=== PATIENT | male | born 1935 | race American Indian/Alaskan Native ===

== ENCOUNTER 2017-03-03 15:03 | Inpatient (IN) | payer MEDICARE ==
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
[2017-03-03 16:46] LABS: Basophils % (Auto) 0.2 % (0.0-1.8); Eosinophils % (Auto) 0.4 % (0.0-4.3); Hematocrit 49.7 % (35.5-45.6); Mean Corpuscular HGB Conc 34 % (32-34); Mean Corpuscular Hemoglobin 34 pg (28-32); Mean Corpuscular Volume 100 fl (84-94); Platelet Count 186 K/mm3 (140-440); Red Blood Count 4.96 M/mm3 (3.65-5.03); Red Cell Distribution Width 14.4 % (13.2-15.2); White Blood Count 5.1 K/mm3 (4.5-11.0)
[2017-03-03 17:04] LABS: Alanine Aminotransferase 12 units/L (7-56); Albumin 4.3 g/dL (3.9-5); Albumin/Globulin Ratio 1.2 %; Alkaline Phosphatase 72 units/L (35-129); Anion Gap 23 mmol/L; BUN/Creatinine Ratio 14; Blood Urea Nitrogen 11 mg/dL (9-20); Calcium 9.5 mg/dL (8.4-10.2); Carbon Dioxide 20 mmol/L (22-30); Chloride 99.3 mmol/L (98-107); Glucose 101 mg/dL (75-100); Lipase 16 units/L (13-60); Potassium 4.1 mmol/L (3.6-5.0); Sodium 138 mmol/L (137-145); Total Protein 7.8 g/dL (6.3-8.2)
[2017-03-03 17:10] LABS: Bilirubin,Direct < 0.2 mg/dL (0-0.2); Bilirubin,Indirect 0.8 mg/dL
[2017-03-03] MEDS ORDERED: MORPHINE IV ONE (19:46)
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
--- NOTE | 2017-03-03 19:55 | History and Physical Report ---
History of Present Illness Chief complaint: My stomach has been hurting History of present illness: 81 YO Male with HTN, Obesity, A Fib, CHF, presents to ED for evaluation. Pt states that he has experienced abdominal pain for the past 1 day with worsening symptoms over the past 6 hours. Pt states that pain in 5/10, diffuse, and associated with watery diarrhea. Pt states that the he has experienced 8 loose, largge volume, watery bowel movements. Pt denies fever, chills, CP, Palpitations, shortness of breath, prolonged travel/immobility, leg pain/calf pain, individual/family history of DVT/PE. Pt seen and evaluated in ED and found to have bowel obstruction. on CT Abdomen. Past History Past Medical History: atrial fib, heart failure, hypertension Past Surgical History: bowel surgery Social history: . denies: smoking, alcohol abuse, prescription drug abuse Family history: hypertension Review of Systems Constitutional: no weight loss, no weight gain, no fever, no chills, no sweats Ears, nose, mouth and throat: no ear pain, no ear discharge, no tinnitis, no decreased hearing, no nose pain, no nasal congestion, no nasal discharge, no sinus pressure Cardiovascular: no chest pain, no orthopnea, no palpitations, no rapid/ irregular heart beat, no edema, no syncope, no lightheadedness, no shortness of breath Respiratory: no cough, no cough with sputum, no excessive sputum, no hemoptysis , no shortness of breath Gastrointestinal: abdominal pain, nausea, vomiting, diarrhea, no BRBPR, no melena, no hematochezia, no excessive gas, no jaundice, no dyspepsia/bloating Genitourinary Male: no dysuria, no hematuria, no flank pain, no discharge, no urinary frequency, no urinary hesitancy Rectal: no pain, no incontinence, no bleeding Musculoskeletal: no neck stiffness, no neck pain, no shooting arm pain, no arm numbness/tingling, no low back pain, no shooting leg pain, no leg numbness/ tingling Integumentary: no rash, no pruritis, no redness, no sores, no wounds Neurological: no transient paralysis, no paralysis, no weakness, no parathesias , no numbness, no tingling, no seizures Psychiatric: no anxiety, no memory loss, no change in sleep habits, no sleep disturbances, no insomnia, no hypersomnia, no change in appetite, no change in libido Endocrine: no cold intolerance, no heat intolerance, no polyphagia, no excessive thirst, no polydipsia, no polyuria Hematologic/Lymphatic: no easy bruising, no easy bleeding Allergic/Immunologic: no urticaria, no allergic rhinitis, no wheezing Exam - Constitutional Vitals: Temp Pulse Resp BP Pulse Ox 98.1 F 93 H 19 173/115 100 03/03/17 17:45 03/03/17 17:45 03/03/17 17:45 03/03/17 17:45 03/03/17 17:45 General appearance: Present: mild distress, obese - EENT Eyes: Present: PERRL ENT: hearing intact, clear oral mucosa - Neck Neck: Present: supple, normal ROM - Respiratory Respiratory effort: normal Respiratory: bilateral: CTA - Cardiovascular Rhythm: irregularly irregular Heart Sounds: Present: S1 & S2. Absent: rub, click - Extremities Extremities: pulses symmetrical, No edema Peripheral Pulses: within normal limits - Abdominal General gastrointestinal: Present: soft, tender, distended, normal bowel sounds Localized gastrointestinal: tender: diffuse, guarding: diffuse Male genitourinary: Present: normal - Integumentary Integumentary: Present: clear, warm, dry - Musculoskeletal Musculoskeletal: gait normal, strength equal bilaterally - Psychiatric Psychiatric: appropriate mood/affect, intact judgment & insight - Neurologic Neurologic: CNII-XII intact, moves all extremities Results - Labs CBC & Chem 7: 03/03/17 16:11 03/03/17 16:11 Labs: Abnormal lab results 03/03/17 03/03/17 03/03/17 Range/Units 16:11 16:11 16:11 Hgb 17.0 H (11.8-15.2) gm/dl Hct 49.7 H (35.5-45.6) % MCV 100 H (84-94) fl MCH 34 H (28-32) pg Lymph # 0.8 L (1.2-5.4) K/mm3 Seg Neutrophils % 80.6 H (40.0-70.0) % Carbon Dioxide 20 L (22-30) mmol/L Glucose 101 H (75-100) mg/dL Lactic Acid 2.20 H* (0.7-2.0) mmol/L Assessment and Plan - Patient Problems (1) Bowel obstruction Current Visit: Yes Status: Acute Qualifiers: Intestinal obstruction type: I Intestinal obstruction extent: I Plan to address problem: Surgery consulted, NPO, bowel rest, IVF resuscitation, serial lactic acid level , serial abdominal exam, NGT to LWS, Abdominal x ray in AM. (2) Atrial fibrillation Current Visit: Yes Status: Acute Qualifiers: Atrial fibrillation type: A Plan to address problem: Resume current therapy, (3) CHF (congestive heart failure) Current Visit: Yes Status: Chronic Qualifiers: Congestive heart failure type: systolic Congestive heart failure chronicity : C Plan to address problem: Resume home medication, fluid restriction, monitor uop q shift, (4) HTN (hypertension) Current Visit: Yes Status: Acute Qualifiers: Hypertension type: H Plan to address problem: monitor BP q shift, (5) Peritonitis Current Visit: Yes Status: Acute Plan to address problem: IVF, IV abx, supportive care, serial lactic acid level, (6) DVT prophylaxis Current Visit: Yes Status: Acute
[2017-03-03] MEDS ORDERED: MILK OF MAGNESIA PO PRN (20:07)
[2017-03-03] MEDS ORDERED: TYLENOL PO PRN (20:07)
[2017-03-03] MEDS ORDERED: PROVENTIL IH PRN (20:07)
[2017-03-03] MEDS ORDERED: DULCOLAX PR PRN (20:07)
[2017-03-03] MEDS ORDERED: ZOFRAN IV PRN (20:07)
--- NOTE | 2017-03-03 23:16 | Progress Note ---
Assessment and Plan Full consult dictated History of Present Illness Chief complaint: Full consult dictated History of present illness: 81 YO Male with HTN, Obesity, A Fib, CHF, presents to ED for evaluation. Pt states that he has experienced abdominal pain for the past 1 day with worsening symptoms over the past 6 hours. Pt states that pain in 5/10, diffuse, and associated with watery diarrhea. Pt states that the he has experienced 8 loose, largge volume, watery bowel movements. Pt denies fever, chills, CP, Palpitations, shortness of breath, prolonged travel/immobility, leg pain/calf pain, individual/family history of DVT/PE. Pt seen and evaluated in ED and found to have bowel obstruction. on CT Abdomen. on coumadin Past History Past Medical History: atrial fib, heart failure, hypertension Past Surgical History: bowel surgery Social history: 1/2 ppd smoker x 30 yrs. quit in ' Family history: hypertension, DM Abd - 2+ distended, non tender. midline scar Abd series - SBO imp sbo rec keep npo ng suction IVF hydration f/u abd series in am will follow thanks Selected Entries 03/03/17 21:45 O2 Sat by Pulse 93 Oximetry Blood Pressure 160/97 Laboratory Tests 03/03/17 03/03/17 16:11 16:11 WBC 5.1 Hgb 17.0 H Hct 49.7 H Sodium 138 Potassium 4.1 Chloride 99.3 BUN 11 Creatinine 0.8 Total Bilirubin 1.00 AST 20 ALT 12 Alkaline Phosphatase 72 Lipase 16 Objective Vital Signs - 12hr 03/03/17 03/03/17 03/03/17 20:15 20:31 20:43 Respiratory 12 Rate Blood Pressure 186/114 186/95 O2 Sat by Pulse 97 94 Oximetry 03/03/17 03/03/17 03/03/17 20:45 21:01 21:15 Respiratory Rate Blood Pressure 186/95 163/98 163/98 O2 Sat by Pulse 95 92 97 Oximetry 03/03/17 03/03/17 03/03/17 21:30 21:45 22:06 Respiratory Rate Blood Pressure 160/97 160/97 O2 Sat by Pulse 93 96 Oximetry 03/03/17 22:33 Respiratory Rate Blood Pressure O2 Sat by Pulse 98 Oximetry - Labs 03/03/17 16:11 03/03/17 16:11
[2017-03-04] MEDS: PEPCID IV SCH ×3 (00:30→21:30)
[2017-03-04] MEDS: FLAGYL 500 MG/100 ML 500 MG/100 ML BAG IV SCH ×4 (00:36→21:32)
[2017-03-04] MEDS: NACL 0.45% 1000 ML 1,000 ML IV SCH ×2 (00:52→21:28)
[2017-03-04 05:07] LABS: Basophils % (Auto) 0.4 % (0.0-1.8); Eosinophils % (Auto) 0.3 % (0.0-4.3); Hemoglobin 16.2 gm/dl (11.8-15.2); Mean Corpuscular HGB Conc 35 % (32-34); Mean Corpuscular Hemoglobin 34 pg (28-32); Mean Corpuscular Volume 100 fl (84-94); Platelet Count 192 K/mm3 (140-440); Red Blood Count 4.72 M/mm3 (3.65-5.03); Red Cell Distribution Width 14.3 % (13.2-15.2); White Blood Count 5.7 K/mm3 (4.5-11.0)
[2017-03-04 05:16] LABS: INR 2.79 (0.87-1.13); Partial Thromboplastin Time 47.9 Sec. (24.2-36.6)
[2017-03-04 05:18] LABS: Alanine Aminotransferase 11 units/L (7-56); Albumin 3.9 g/dL (3.9-5); Alkaline Phosphatase 66 units/L (35-129); Anion Gap 21 mmol/L; BUN/Creatinine Ratio 16; Blood Urea Nitrogen 13 mg/dL (9-20); Calcium 9.5 mg/dL (8.4-10.2); Carbon Dioxide 22 mmol/L (22-30); Chloride 98.8 mmol/L (98-107); Glucose 100 mg/dL (75-100); Potassium 3.9 mmol/L (3.6-5.0); Sodium 138 mmol/L (137-145); Total Protein 7.7 g/dL (6.3-8.2)
--- NOTE | 2017-03-04 07:56 | XRay Report ---
ABDOMEN, 2 views: History: Abdominal pain and distention. No comparison. There are multiple dilated loops of small bowel with a large air-fluid levels throughout the abdomen. Very little gas in the colon is detected. There is no evidence for free air or pathologic calcifications. IMPRESSION: Small bowel obstruction. Further evaluation with CT with IV and oral contrast is recommended.
--- NOTE | 2017-03-04 08:41 | XRay Report ---
ABDOMINAL SERIES: History: Follow up small bowel obstruction. A nasogastric tube has been inserted since yesterday's exam which appears to be coiled in the distal esophagus. Please correlate with the image and consider replacement of the nasogastric tube. Multiple dilated loops of small bowel and stomach are again noted in the abdomen or large air-fluid levels. No free air. IMPRESSION: Essentially no change since yesterday's exam. The nasogastric tube appears to be coiled upon itself in the distal esophagus. Please correlate with the image and consider replacement.
[2017-03-04] MEDS ORDERED: REGLAN IV PRN (10:30)
--- NOTE | 2017-03-04 11:04 | Progress Note ---
Assessment and Plan Pt status quo. Abd exam - unchanged Abd series - ng noted to be curled in distal esophagus reposition ng and confirm with KUB if necessary need to correct elevated PT AZUL in case expl lap required Vasc surg eval for possible dissecting aneurysm in proximal iliac artery repeat abd series in am awaiting cardiology eval Selected Entries 03/04/17 03/04/17 04:00 09:25 Temperature 98.3 F Respiratory 20 Rate Blood Pressure 159/108 [Left] Laboratory Tests 03/04/17 03/04/17 03/04/17 04:22 04:22 04:22 WBC 5.7 Hgb 16.2 H Hct 47.0 H PT 30.7 H INR 2.79 H APTT 47.9 H Sodium 138 Potassium 3.9 Chloride 98.8 Carbon Dioxide 22 BUN 13 Creatinine 0.8 Objective Vital Signs - 12hr 03/04/17 03/04/17 03/04/17 04:00 07:26 09:25 Temperature 98.3 F Pulse Rate 118 H Respiratory 20 20 Rate Blood Pressure 174/112 159/108 [Left] O2 Sat by Pulse 98 95 96 Oximetry - Labs 03/04/17 04:22 03/04/17 04:22 Diabetes panel 03/04/17 Range/Units 04:22 Sodium 138 (137-145) mmol/L Potassium 3.9 (3.6-5.0) mmol/L Chloride 98.8 (98-107) mmol/L Carbon Dioxide 22 (22-30) mmol/L BUN 13 (9-20) mg/dL Creatinine 0.8 (0.8-1.5) mg/dL Glucose 100 (75-100) mg/dL Calcium 9.5 (8.4-10.2) mg/dL AST 19 (5-40) units/L ALT 11 (7-56) units/L Alkaline Phosphatase 66 (35-129) units/L Total Protein 7.7 (6.3-8.2) g/dL Albumin 3.9 (3.9-5) g/dL Calcium panel 03/04/17 Range/Units 04:22 Calcium 9.5 (8.4-10.2) mg/dL Albumin 3.9 (3.9-5) g/dL Pituitary panel 03/04/17 Range/Units 04:22 Sodium 138 (137-145) mmol/L Potassium 3.9 (3.6-5.0) mmol/L Chloride 98.8 (98-107) mmol/L Carbon Dioxide 22 (22-30) mmol/L BUN 13 (9-20) mg/dL Creatinine 0.8 (0.8-1.5) mg/dL Glucose 100 (75-100) mg/dL Calcium 9.5 (8.4-10.2) mg/dL Adrenal panel 03/04/17 Range/Units 04:22 Sodium 138 (137-145) mmol/L Potassium 3.9 (3.6-5.0) mmol/L Chloride 98.8 (98-107) mmol/L Carbon Dioxide 22 (22-30) mmol/L BUN 13 (9-20) mg/dL Creatinine 0.8 (0.8-1.5) mg/dL Glucose 100 (75-100) mg/dL Calcium 9.5 (8.4-10.2) mg/dL Total Bilirubin 1.00 (0.1-1.2) mg/dL AST 19 (5-40) units/L ALT 11 (7-56) units/L Alkaline Phosphatase 66 (35-129) units/L Total Protein 7.7 (6.3-8.2) g/dL Albumin 3.9 (3.9-5) g/dL
--- NOTE | 2017-03-04 11:19 | Progress Note ---
Assessment and Plan Assessment and plan: Patient is 81-year-old man with history of A. fib on warfarin, hypertension, CHF , tobacco dependency, dyslipidemia and coronary artery disease who presented to [facility] (first visit here-main doctors are at [facility]) with nausea, vomiting and abdominal pains. 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 -Small bowel obstruction with peritonitis: Discussed with general surgeon Dr. Gong, NG tube to be repositioned, careful with suction due to therapeutic INR , nothing by mouth, IV pain control, empiric IV antibiotics -Malignant hypertension: prn IV labetalol -Atrial fibrillation/aflutter with RVR on warfarin with therapeutic INR: Will need to be reversed for possible surgery per Dr. Gong who recommends 2 units of FFP and vitamin K, we'll consult cardiology to manage, careful with history of heart failure, possibly will need IV heparin, consulted [facility] because they also go to [facility]; therefore, they can review his [facility] records and they are on-call today. 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 CCT 34 minutes History Interval history: Patient was seen and examined. Follow-up on current diagnosis/abdominal pain nausea vomiting which is still present. Overnight uneventful. Patient denies any chest pain, shortness breath, or severe headaches. Imaging, nursing note, chart, labs and old chart reviewed. Discussed with patient. Daughter Alysia at bedside. Patient has NG tube Hospitalist Physical - Physical exam Narrative exam: GEN: Ill-appearing man, BMI 35.4, no respiratory distress awake alert oriented 3 HEENT: NCAT, EOMI, PERRL, OP Clear, NG tube in place NECK: supple, no adenopathy, no thyromegaly, no JVD CVS/HEART: Irregular regular NORMAL S1S2, NO JVD, pulses present bilaterally CHEST/LUNGS: Bibasilar crackles Symmetrical chest expansion, good air entry bilaterally GI/Abdomen: Distended, diffuse tenderness good bowel sounds,+ guarding, no rebound /Bladder: no suprapubic tenderness, no CVA or paraspinal tenderness EXT/Skin: no c/c/e, no obvious rash MSK: FROM x 4 Neuro: CN 2-12 grossly intact except facial asymmetry, no new focal deficits Psych: calm - Constitutional Vitals: Temp Pulse Resp BP Pulse Ox 98.3 F 118 H 20 159/108 96 03/04/17 04:00 03/04/17 04:00 03/04/17 09:25 03/04/17 09:25 03/04/17 09:25 General appearance: Present: obese Results - Labs CBC & Chem 7: 03/04/17 04:22 03/04/17 04:22 Labs: Laboratory Last Values WBC 5.7 K/mm3 (4.5-11.0) 03/04/17 04:22 RBC 4.72 M/mm3 (3.65-5.03) 03/04/17 04:22 Hgb 16.2 gm/dl (11.8-15.2) H 03/04/17 04:22 Hct 47.0 % (35.5-45.6) H 03/04/17 04:22 MCV 100 fl (84-94) H 03/04/17 04:22 MCH 34 pg (28-32) H 03/04/17 04:22 MCHC 35 % (32-34) H 03/04/17 04:22 RDW 14.3 % (13.2-15.2) 03/04/17 04:22 Plt Count 192 K/mm3 (140-440) 03/04/17 04:22 Lymph % (Auto) 15.8 % (13.4-35.0) 03/04/17 04:22 [place] % (Auto) 5.3 % (0.0-7.3) 03/04/17 04:22 Eos % (Auto) 0.3 % (0.0-4.3) 03/04/17 04:22 Baso % (Auto) 0.4 % (0.0-1.8) 03/04/17 04:22 Lymph # 0.9 K/mm3 (1.2-5.4) L 03/04/17 04:22 [place] # 0.3 K/mm3 (0.0-0.8) 03/04/17 04:22 Eos # 0.0 K/mm3 (0.0-0.4) 03/04/17 04:22 Baso # 0.0 K/mm3 (0.0-0.1) 03/04/17 04:22 Seg Neutrophils % 78.2 % (40.0-70.0) H 03/04/17 04:22 Seg Neutrophils # 4.5 K/mm3 (1.8-7.7) 03/04/17 04:22 PT 30.7 Sec. (12.2-14.9) H 03/04/17 04:22 INR 2.79 (0.87-1.13) H 03/04/17 04:22 APTT 47.9 Sec. (24.2-36.6) H 03/04/17 04:22 Sodium 138 mmol/L (137-145) 03/04/17 04:22 Potassium 3.9 mmol/L (3.6-5.0) 03/04/17 04:22 Chloride 98.8 mmol/L (98-107) 03/04/17 04:22 Carbon Dioxide 22 mmol/L (22-30) 03/04/17 04:22 Anion Gap 21 mmol/L 03/04/17 04:22 BUN 13 mg/dL (9-20) 03/04/17 04:22 Creatinine 0.8 mg/dL (0.8-1.5) 03/04/17 04:22 Estimated GFR > 60 ml/min 03/04/17 04:22 BUN/Creatinine Ratio 16 % 03/04/17 04:22 Glucose 100 mg/dL (75-100) 03/04/17 04:22 Lactic Acid 2.20 mmol/L (0.7-2.0) H* 03/03/17 16:11 Calcium 9.5 mg/dL (8.4-10.2) 03/04/17 04:22 Total Bilirubin 1.00 mg/dL (0.1-1.2) 03/04/17 04:22 Direct Bilirubin < 0.2 mg/dL (0-0.2) 03/03/17 16:11 Indirect Bilirubin 0.8 mg/dL 03/03/17 16:11 AST 19 units/L (5-40) 03/04/17 04:22 ALT 11 units/L (7-56) 03/04/17 04:22 Alkaline Phosphatase 66 units/L (35-129) 03/04/17 04:22 Total Protein 7.7 g/dL (6.3-8.2) 03/04/17 04:22 Albumin 3.9 g/dL (3.9-5) 03/04/17 04:22 Albumin/Globulin Ratio 1.0 % 03/04/17 04:22 Lipase 16 units/L (13-60) 03/03/17 16:11
[2017-03-04] MEDS ORDERED: COUMADIN NO DOSE TODAY PO ONE (11:21)
[2017-03-04] MEDS ORDERED: NACL 0.9% 500 ML 500 ML IV ONE (11:31)
--- NOTE | 2017-03-04 11:48 | Event Note ---
Date: 03/04/17 Recommend refer concerns about iliac and distal aorta aneurysm to vascular surgery, please re-consult us if any cardiac issues.
[2017-03-04] MEDS ORDERED: NACL P/F VIAL (10 ML) 10 ML ONE (12:19)
[2017-03-04] MEDS: LEVAQUIN 500MG/100ML 500 MG/100 ML BAG IV SCH (12:22)
[2017-03-04] MEDS: CHLORASEPTIC MM PRN (12:28)
[2017-03-04] MEDS ORDERED: VITAMIN K (ADULT ONLY) 5 MG in NACL 0.9% 50 ML IV ONE (12:30)
[2017-03-04] MEDS: NORMODYNE IV PRN ×2 (15:30→21:29)
--- NOTE | 2017-03-04 15:36 | Consultation ---
History of Present Illness - Reason for Consult Consult date: 03/04/17 right common iliac artery aneurysm - History of Present Illness This is a 81-year-old male who recently presented to the hospital with nausea/ vomiting/diarrhea for approximately 8 days. He had a CT scan of the abdomen as part of the abdominal pain evaluation. 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 Regarding vascular history, aside from cardiac issues, he denies any symptoms related to claudication or rest pain. He states he has never felt a pulsatile mass in the abdomen or pelvis. He does have an extensive cardiac history including CHF, A. fib, and coronary artery disease. 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 Past History Past Medical History: atrial fib, heart failure, hypertension Past Surgical History: bowel surgery Social history: . denies: smoking, alcohol abuse, prescription drug abuse Family history: hypertension Medications and Allergies Allergies Allergy/AdvReac Type Severity Reaction Status Date / Time No Known Drug Allergies Allergy Unknown Verified 03/03/17 20:43 Home Medications Medication Instructions Recorded Confirmed Last Taken Type AtorvaSTATin [Lipitor] 20 mg PO QDAY 03/03/17 03/03/17 03/02/17 History Digoxin [Digox] 125 mcg PO QDAY 03/03/17 03/03/17 03/02/17 History Diltiazem HCl [Cardizem LA] 360 mg PO QDAY 03/03/17 03/03/17 03/02/17 History Gabapentin [Neurontin] 300 mg PO QDAY 03/03/17 03/03/17 03/02/17 History Omeprazole [Omeprazole] 20 mg PO QDAY 03/03/17 03/03/17 03/02/17 History Torsemide [Demadex] 20 mg PO BID 03/03/17 03/03/17 03/02/17 History Valsartan [Diovan] 80 mg PO QDAY 03/03/17 03/03/17 03/02/17 History Warfarin Sodium [Coumadin] 5 mg PO QDAY 03/03/17 03/03/17 03/02/17 History Active Meds: Active Medications Albuterol (Proventil) 2.5 mg IH Q4HRT PRN PRN Reason: Shortness Of Breath Bisacodyl (Dulcolax) 10 mg [place] QDAY PRN PRN Reason: Constipation unrelieved by MOM Famotidine (Pepcid) 20 mg IV BID [facility] Last Admin: 03/04/17 12:22 Dose: 20 mg Sodium Chloride (Nacl 0.45% 1000 Ml) 1,000 mls @ 75 mls/hr IV DIRECT MARIO Last Admin: 03/04/17 00:52 Dose: 75 mls/hr Metronidazole (Flagyl 500 Mg/100 Ml) 500 mg in 100 mls @ 100 mls/hr IV Q8HR [facility] Last Admin: 03/04/17 14:26 Dose: 100 mls/hr Levofloxacin/Dextrose (Levaquin 500mg/100ml) 500 mg in 100 mls @ 100 mls/hr IV Q24HR [facility]IO PRN Reason: Protocol Last Admin: 03/04/17 12:22 Dose: 100 mls/hr Labetalol HCl (Normodyne) 10 mg IV Q4H PRN PRN Reason: Blood Pressure Metoclopramide HCl (Reglan) 10 mg IV Q8H PRN PRN Reason: Nausea And Vomiting Phenol (Chloraseptic) 1 spray MM PRN PRN PRN Reason: Sore Throat Last Admin: 03/04/17 12:28 Dose: 1 spray Exam - Constitutional Vitals: Temp Pulse Resp BP Pulse Ox 98.3 F 134 H 20 159/108 96 03/04/17 04:00 03/04/17 10:00 03/04/17 09:25 03/04/17 09:25 03/04/17 09:25 General appearance: Present: no acute distress - EENT Eyes: Present: PERRL ENT: hearing intact - Neck Neck: Present: supple - Respiratory Respiratory effort: normal - Extremities Extremities: normal temperature, normal color Extremity abnormal: edema, other (both feet are warm, but no pedal pulses are readily palpable. Both common femoral pulses are palpable.) - Abdominal General gastrointestinal: Present: non-tender, distended - Integumentary Integumentary: Present: clear - Psychiatric Psychiatric: appropriate mood/affect, cooperative - Neurologic Neurologic: CNII-XII intact Results - Labs CBC & Chem 7: 03/04/17 04:22 03/04/17 04:22 Labs: Abnormal lab results 03/04/17 03/04/17 Range/Units 04:22 04:22 Hgb 16.2 H (11.8-15.2) gm/dl Hct 47.0 H (35.5-45.6) % MCV 100 H (84-94) fl MCH 34 H (28-32) pg MCHC 35 H (32-34) % Lymph # 0.9 L (1.2-5.4) K/mm3 Seg Neutrophils % 78.2 H (40.0-70.0) % PT 30.7 H (12.2-14.9) Sec. INR 2.79 H (0.87-1.13) APTT 47.9 H (24.2-36.6) Sec. 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 This is most likely chronic in nature given his lack of symptomatology and heavy calcifications on CT. The size of this aneurysm certainly is within the range of indication for repair to prevent future rupture. Due to its proximity to the aortic bifurcation, he will most likely require an EVAR. I explained this procedure to the patient and his daughter. I will schedule him as an outpatient for this procedure, as it is important for him to resolve his current ongoing gastrointestinal issues first. I will also contact his outpatient production machine shop supervisor to discuss any issues with cardiac clearance.
[2017-03-04 15:48] LABS: Bilirubin,Urine NEG (Negative); Blood,Urine MOD (Negative); Ketones,Urine 20 mg/dL (Negative); Leukocyte Esterase,Urine NEG (Negative); Mucus,Urine 3+ /HPF; Nitrite,Urine NEG (Negative); Urobilinogen,Urine < 2.0 mg/dL (<2.0)
--- NOTE | 2017-03-04 17:46 | Consultation ---
REASON FOR CONSULTATION: Rule out partial small bowel obstruction. HISTORY OF PRESENT ILLNESS: The patient is a pleasant 81-year-old gentleman who presented to the Emergency Room with recent onset of abdominal pain accompanied by nausea and vomiting. PAST MEDICAL HISTORY: Pertinent for heart disease and hypertension. It appears by history and the fact that he is taking Coumadin, that the patient probably has a cardiac arrhythmia, possible atrial fibrillation. The patient states his jacquard lace weaver that follows him is over in [place]. Normally, the patient is being [place] [facility] [place], but he was visiting his daughter here in [facility] and thus his arrival to the ER and subsequent admission here. PAST SURGICAL HISTORY: Status post partial colectomy approximately 20 years ago. The patient is not sure the reason, but he states his colon was \\"obstructed\\" and also status post T and A. ALLERGIES: No known allergies. MEDICATIONS: Include Coumadin as previously mentioned. Possibly also medication for his blood pressure. FAMILY HISTORY: Hypertension, diabetes. SOCIAL HISTORY: Smokes half a pack a day for approximately 30 years, states he quit smoking in 2007. PHYSICAL EXAMINATION: GENERAL: At this time reveals the patient to be awake, alert, cooperative. No acute distress. NG tube is in place. VITAL SIGNS: Shown to be running a blood pressure 160/97. Pulse and temperature are currently not recorded. ABDOMEN: Examination of the abdomen reveals a midline scar. The abdomen itself is 2+, distended, but nontender. Bowel sounds are hypoactive. LABORATORY DATA: Lab work at present includes a CBC which shows a white count of 5.1, H and H is 17 and 49. Platelet count is 186,000. Electrolytes are essentially within normal limits including a sodium 138, potassium 4.1, chloride of 99, CO2 is 20, BUN 11, creatinine is 0.8. Total bilirubin is 1, AST is 20, ALT is 12, alkaline phosphatase is 72. Lipase is 16. Abdominal series has been done, which I have reviewed and is consistent with a small-bowel obstruction. IMPRESSION: 1. At this time is that of a 81-year-old hypertensive gentleman with also heart disease and on anticoagulation. 2. Rule out small-bowel obstruction. RECOMMENDATIONS: To keep the patient n.p.o. We will start on NG suction, IV fluid hydration. We will repeat abdominal series in the morning. We will follow closely with you. Thank you very much for consultation. JOB# [id number] CANDY/NTS
[2017-03-05] MEDS: FLAGYL 500 MG/100 ML 500 MG/100 ML BAG IV SCH ×3 (05:29→22:26)
[2017-03-05 05:39] LABS: Hematocrit 42.6 % (35.5-45.6); Hemoglobin 15.1 gm/dl (11.8-15.2); Mean Corpuscular HGB Conc 36 % (32-34); Mean Corpuscular Hemoglobin 35 pg (28-32); Mean Corpuscular Volume 100 fl (84-94); Platelet Count 155 K/mm3 (140-440); Red Blood Count 4.28 M/mm3 (3.65-5.03); Red Cell Distribution Width 14.8 % (13.2-15.2); White Blood Count 2.8 K/mm3 (4.5-11.0)
[2017-03-05 05:51] LABS: INR 1.34 (0.87-1.13)
[2017-03-05 05:59] LABS: Alanine Aminotransferase 11 units/L (7-56); Albumin 3.6 g/dL (3.9-5); Albumin/Globulin Ratio 1.2 %; Alkaline Phosphatase 58 units/L (35-129); Anion Gap 20 mmol/L; BUN/Creatinine Ratio 20; Blood Urea Nitrogen 16 mg/dL (9-20); Calcium 9.3 mg/dL (8.4-10.2); Carbon Dioxide 24 mmol/L (22-30); Chloride 101.4 mmol/L (98-107); Glucose 93 mg/dL (75-100); Potassium 3.9 mmol/L (3.6-5.0); Sodium 141 mmol/L (137-145); Total Protein 6.7 g/dL (6.3-8.2)
[2017-03-05 06:36] LABS: Blastocytes % (Manual) 0 %; Diff Status Complete; Platelet Estimate Consistent w Auto; RBC Morphology Normal
[2017-03-05] MEDS: LEVAQUIN 500MG/100ML 500 MG/100 ML BAG IV SCH (09:46)
[2017-03-05] MEDS: PEPCID IV SCH ×2 (09:46→22:26)
--- NOTE | 2017-03-05 10:36 | Consultation ---
History of Present Illness Consult date: 03/05/17 Consult reason: atrial fibrillation History of present illness: Patient is a 81 year old male admitted with abdominal pain, small bowel obstruction. He follows with Dr Case in [facility] for chronic afib. He is on coumadin as outpatient. Patient denies chest pain, shortness of breath, syncope. He has chronic bilateral LE lymphedema. His INR today is 1.34. His ECG is showing afib with non-specific T wave abnormality Past History Past Medical History: atrial fib, heart failure, hypertension Past Surgical History: bowel surgery Social history: . denies: smoking, alcohol abuse, prescription drug abuse Family history: hypertension Medications and Allergies Allergies Allergy/AdvReac Type Severity Reaction Status Date / Time No Known Drug Allergies Allergy Unknown Verified 03/03/17 20:43 Home Medications Medication Instructions Recorded Confirmed Last Taken Type AtorvaSTATin [Lipitor] 20 mg PO QDAY 03/03/17 03/03/17 03/02/17 History Digoxin [Digox] 125 mcg PO QDAY 03/03/17 03/03/17 03/02/17 History Diltiazem HCl [Cardizem LA] 360 mg PO QDAY 03/03/17 03/03/17 03/02/17 History Gabapentin [Neurontin] 300 mg PO QDAY 03/03/17 03/03/17 03/02/17 History Omeprazole [Omeprazole] 20 mg PO QDAY 03/03/17 03/03/17 03/02/17 History Torsemide [Demadex] 20 mg PO BID 03/03/17 03/03/17 03/02/17 History Valsartan [Diovan] 80 mg PO QDAY 03/03/17 03/03/17 03/02/17 History Warfarin Sodium [Coumadin] 5 mg PO QDAY 03/03/17 03/03/17 03/02/17 History Active Meds: Active Medications Albuterol (Proventil) 2.5 mg IH Q4HRT PRN PRN Reason: Shortness Of Breath Bisacodyl (Dulcolax) 10 mg [place] QDAY PRN PRN Reason: Constipation unrelieved by MOM Famotidine (Pepcid) 20 mg IV BID [facility] Last Admin: 03/05/17 09:46 Dose: 20 mg Sodium Chloride (Nacl 0.45% 1000 Ml) 1,000 mls @ 75 mls/hr IV DIRECT [facility] Last Admin: 03/04/17 21:28 Dose: 75 mls/hr Metronidazole (Flagyl 500 Mg/100 Ml) 500 mg in 100 mls @ 100 mls/hr IV Q8HR [facility] Last Admin: 03/05/17 05:29 Dose: 100 mls/hr Levofloxacin/Dextrose (Levaquin 500mg/100ml) 500 mg in 100 mls @ 100 mls/hr IV Q24HR [facility] PRN Reason: Protocol Last Admin: 03/05/17 09:46 Dose: 100 mls/hr Labetalol HCl (Normodyne) 10 mg IV Q4H PRN PRN Reason: Blood Pressure Last Admin: 03/04/17 21:29 Dose: 10 mg Metoclopramide HCl (Reglan) 10 mg IV Q8H PRN PRN Reason: Nausea And Vomiting Phenol (Chloraseptic) 1 spray MM PRN PRN PRN Reason: Sore Throat Last Admin: 03/04/17 12:28 Dose: 1 spray Review of Systems All systems: negative Physical Examination Vital Signs Pulse Resp Pulse Ox 99 H 20 97 03/03/17 15:16 03/03/17 15:16 03/03/17 15:16 General appearance: no acute distress HEENT: Positive: PERRL Neck: Positive: neck supple Cardiac: Positive: irregularly irregular Lungs: Positive: Normal Exam Neuro: Positive: Grossly Intact Abdomen: Positive: Soft Extremities: Present: +1 Edema Results 03/05/17 05:12 03/05/17 05:12 Cardiac Enzymes 03/05/17 Range/Units 05:12 AST 19 (5-40) units/L Coagulation 03/05/17 Range/Units 05:12 PT 17.2 H (12.2-14.9) Sec. INR 1.34 H (0.87-1.13) CBC 03/05/17 Range/Units 05:12 WBC 2.8 L (4.5-11.0) K/mm3 RBC 4.28 (3.65-5.03) M/mm3 Hgb 15.1 (11.8-15.2) gm/dl Hct 42.6 (35.5-45.6) % Plt Count 155 (140-440) K/mm3 Comprehensive Metabolic Panel 03/05/17 Range/Units 05:12 Sodium 141 (137-145) mmol/L Potassium 3.9 (3.6-5.0) mmol/L Chloride 101.4 (98-107) mmol/L Carbon Dioxide 24 (22-30) mmol/L BUN 16 (9-20) mg/dL Creatinine 0.8 (0.8-1.5) mg/dL Glucose 93 (75-100) mg/dL Calcium 9.3 (8.4-10.2) mg/dL AST 19 (5-40) units/L ALT 11 (7-56) units/L Alkaline Phosphatase 58 (35-129) units/L Total Protein 6.7 (6.3-8.2) g/dL Albumin 3.6 L (3.9-5) g/dL EKG interpretations - Telemetry EKG Rhythm: Atrial Fibrillation Assessment and Plan Assessment: Permanent atrial fibrillation On coumadin, digoxin and diltiazem as outpatient EF 50-55% by GUDELIA 12/2015 No ischemia by MPI 2007 Abdominal pain Small bowel obstruction on CT abdomen Right common iliac artery aneurysm (measuring 4.1 cm) with possible dissection Outpatient follow-up per vascular Recommendations: Hold anticoagulation in anticipation of possible exploratory abdominal surgery. Initiate IV heparin if no surgery is planned in the near term Initiate rate control with IV lopressor as patient is NPO May proceed with abdominal surgery cardiac mcmanus - moderate perioperative cardiac risk
[2017-03-05] MEDS: LOPRESSOR IV SCH ×2 (13:07→18:03)
--- NOTE | 2017-03-05 13:29 | Progress Note ---
Assessment and Plan Pt feeling better. states had small BM. some blood tinged drainage noted in NG Abd - less distended, non tender stable - slightly improving cardiology & vasc surg eval noted will start mineral oil thru NG x 48 hrs f/u abd series in am Selected Entries 03/05/17 03/05/17 08:00 13:07 Temperature 97.8 F Pulse Rate 99 H Blood Pressure 166/109 Laboratory Tests 03/05/17 03/05/17 05:12 05:12 WBC 2.8 L Hgb 15.1 Hct 42.6 PT 17.2 H INR 1.34 H Objective Vital Signs - 12hr 03/05/17 03/05/17 03/05/17 02:00 03:46 08:00 Temperature 99 F 97.8 F Pulse Rate 98 H 92 H 92 H Pulse Rate [ From Monitor] Respiratory 20 20 Rate Blood Pressure Blood Pressure 158/98 153/96 [Left] O2 Sat by Pulse 94 97 Oximetry 03/05/17 03/05/17 10:00 13:07 Temperature Pulse Rate 98 H 99 H Pulse Rate [ 98 H From Monitor] Respiratory 20 Rate Blood Pressure 166/109 Blood Pressure [Left] O2 Sat by Pulse Oximetry - Labs 03/05/17 05:12 03/05/17 05:12 Diabetes panel 03/05/17 Range/Units 05:12 Sodium 141 (137-145) mmol/L Potassium 3.9 (3.6-5.0) mmol/L Chloride 101.4 (98-107) mmol/L Carbon Dioxide 24 (22-30) mmol/L BUN 16 (9-20) mg/dL Creatinine 0.8 (0.8-1.5) mg/dL Glucose 93 (75-100) mg/dL Calcium 9.3 (8.4-10.2) mg/dL AST 19 (5-40) units/L ALT 11 (7-56) units/L Alkaline Phosphatase 58 (35-129) units/L Total Protein 6.7 (6.3-8.2) g/dL Albumin 3.6 L (3.9-5) g/dL Calcium panel 03/05/17 Range/Units 05:12 Calcium 9.3 (8.4-10.2) mg/dL Albumin 3.6 L (3.9-5) g/dL Pituitary panel 03/05/17 Range/Units 05:12 Sodium 141 (137-145) mmol/L Potassium 3.9 (3.6-5.0) mmol/L Chloride 101.4 (98-107) mmol/L Carbon Dioxide 24 (22-30) mmol/L BUN 16 (9-20) mg/dL Creatinine 0.8 (0.8-1.5) mg/dL Glucose 93 (75-100) mg/dL Calcium 9.3 (8.4-10.2) mg/dL Adrenal panel 03/05/17 Range/Units 05:12 Sodium 141 (137-145) mmol/L Potassium 3.9 (3.6-5.0) mmol/L Chloride 101.4 (98-107) mmol/L Carbon Dioxide 24 (22-30) mmol/L BUN 16 (9-20) mg/dL Creatinine 0.8 (0.8-1.5) mg/dL Glucose 93 (75-100) mg/dL Calcium 9.3 (8.4-10.2) mg/dL Total Bilirubin 1.40 H (0.1-1.2) mg/dL AST 19 (5-40) units/L ALT 11 (7-56) units/L Alkaline Phosphatase 58 (35-129) units/L Total Protein 6.7 (6.3-8.2) g/dL Albumin 3.6 L (3.9-5) g/dL
[2017-03-05] MEDS ORDERED: HEPARIN SUB-Q SCH (14:00)
[2017-03-05] MEDS: MINERAL OIL FEEDTUBE SCH ×3 (14:18→22:15)
--- NOTE | 2017-03-05 14:20 | Progress Note ---
Assessment and Plan Assessment and plan: Patient is 81-year-old man with history of A. fib on warfarin, hypertension, CHF , tobacco dependency, dyslipidemia and coronary artery disease who presented to the emergency Department at [facility] (first visit here-main doctors are at [facility]) with nausea, vomiting and abdominal pains. 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 -Small bowel obstruction with peritonitis: Discussed with general surgeon Dr. Gong, NG tube to be repositioned, careful with suction due to therapeutic INR , nothing by mouth, IV pain control, empiric IV antibiotics -Malignant hypertension: prn IV labetalol -Atrial fibrillation/aflutter with RVR on warfarin with therapeutic INR: Will need to be reversed for possible surgery per Dr. Gong who recommends 2 units of FFP and vitamin K, we'll consult cardiology to manage, careful with history of heart failure, possibly will need IV heparin, consulted [facility] because they also go to [facility]; therefore, they can review his [facility] records and they are on-call today. 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 Gong: Pt feeling better. states had small BM. some blood tinged drainage noted in NG, Abd - less distended, non tender, stable - slightly improving, cardiology & vasc surg eval noted, will start mineral oil thru NG x 48 hrs, f/u abd series in am. per Cardiology, Dr. 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 Initiate IV heparin if no surgery is planned in the near term Initiate rate control with IV lopressor as patient is NPO May proceed with abdominal surgery cardiac mcmanus - moderate perioperative cardiac risk" Unable to get bed in ICU yesterday, pt doing better today. History Interval history: Patient was seen and examined. Follow-up on current diagnosis/abdominal pain nausea vomiting which has improved. Overnight uneventful. Patient denies any chest pain, shortness breath, or severe headaches. Imaging, nursing note, chart , labs and old chart reviewed. Discussed with patient. Patient has NG tube Hospitalist Physical - Physical exam Narrative exam: GEN: Ill-appearing man, BMI 35.4, no respiratory distress awake alert oriented 3 HEENT: NCAT, EOMI, PERRL, OP Clear, NG tube in place NECK: supple, no adenopathy, no thyromegaly, no JVD CVS/HEART: Irregular regular NORMAL S1S2, NO JVD, pulses present bilaterally CHEST/LUNGS: Bibasilar crackles Symmetrical chest expansion, good air entry bilaterally GI/Abdomen: less distension, diffuse tenderness good bowel sounds,+ guarding, no rebound /Bladder: no suprapubic tenderness, no CVA or paraspinal tenderness EXT/Skin: no c/c/e, no obvious rash MSK: FROM x 4 Neuro: CN 2-12 grossly intact except facial asymmetry, no new focal deficits Psych: calm - Constitutional Vitals: Temp Pulse Resp BP Pulse Ox 98.3 F 91 H 20 148/101 96 03/05/17 14:00 03/05/17 14:00 03/05/17 14:00 03/05/17 14:00 03/05/17 14:00 General appearance: Present: no acute distress Results - Labs CBC & Chem 7: 03/05/17 05:12 03/05/17 05:12 Labs: Laboratory Last Values WBC 2.8 K/mm3 (4.5-11.0) L 03/05/17 05:12 RBC 4.28 M/mm3 (3.65-5.03) 03/05/17 05:12 Hgb 15.1 gm/dl (11.8-15.2) 03/05/17 05:12 Hct 42.6 % (35.5-45.6) 03/05/17 05:12 MCV 100 fl (84-94) H 03/05/17 05:12 MCH 35 pg (28-32) H 03/05/17 05:12 MCHC 36 % (32-34) H 03/05/17 05:12 RDW 14.8 % (13.2-15.2) 03/05/17 05:12 Plt Count 155 K/mm3 (140-440) 03/05/17 05:12 Lymph % (Auto) 15.8 % (13.4-35.0) 03/04/17 04:22 [place] % (Auto) Shank Rander 03/05/17 05:12 Eos % (Auto) 0.3 % (0.0-4.3) 03/04/17 04:22 Baso % (Auto) 0.4 % (0.0-1.8) 03/04/17 04:22 Lymph # 0.9 K/mm3 (1.2-5.4) L 03/04/17 04:22 [place] # 0.3 K/mm3 (0.0-0.8) 03/04/17 04:22 Eos # 0.0 K/mm3 (0.0-0.4) 03/04/17 04:22 Baso # 0.0 K/mm3 (0.0-0.1) 03/04/17 04:22 Add Manual Diff Complete 03/05/17 05:12 Total Counted 100 03/05/17 05:12 Seg Neutrophils % 78.2 % (40.0-70.0) H 03/04/17 04:22 Seg Neuts % (Manual) 34.0 % (40.0-70.0) L 03/05/17 05:12 Band Neutrophils % 6.0 % 03/05/17 05:12 Lymphocytes % (Manual) 37.0 % (13.4-35.0) H 03/05/17 05:12 Reactive Lymphs % (Man) 0 % 03/05/17 05:12 Monocytes % (Manual) 20.0 % (0.0-7.3) H 03/05/17 05:12 Eosinophils % (Manual) 2.0 % (0.0-4.3) 03/05/17 05:12 Basophils % (Manual) 1.0 % (0.0-1.8) 03/05/17 05:12 Metamyelocytes % 0 % 03/05/17 05:12 Myelocytes % 0 % 03/05/17 05:12 Promyelocytes % 0 % 03/05/17 05:12 Blast Cells % 0 % 03/05/17 05:12 Nucleated RBC % Not Reportable 03/05/17 05:12 Seg Neutrophils # 4.5 K/mm3 (1.8-7.7) 03/04/17 04:22 Seg Neutrophils # Man 1.0 K/mm3 (1.8-7.7) L 03/05/17 05:12 Band Neutrophils # 0.2 K/mm3 03/05/17 05:12 Lymphocytes # (Manual) 1.0 K/mm3 (1.2-5.4) L 03/05/17 05:12 Abs React Lymphs (Man) 0.0 K/mm3 03/05/17 05:12 Monocytes # (Manual) 0.6 K/mm3 (0.0-0.8) 03/05/17 05:12 Eosinophils # (Manual) 0.1 K/mm3 (0.0-0.4) 03/05/17 05:12 Basophils # (Manual) 0.0 K/mm3 (0.0-0.1) 03/05/17 05:12 Metamyelocytes # 0.0 K/mm3 03/05/17 05:12 Myelocytes # 0.0 K/mm3 03/05/17 05:12 Promyelocytes # 0.0 K/mm3 03/05/17 05:12 Blast Cells # 0.0 K/mm3 03/05/17 05:12 WBC Morphology Not Reportable 03/05/17 05:12 Hypersegmented Neuts Not Reportable 03/05/17 05:12 Hyposegmented Neuts Not Reportable 03/05/17 05:12 Hypogranular Neuts Not Reportable 03/05/17 05:12 Smudge Cells Not Reportable 03/05/17 05:12 Toxic Granulation Not Reportable 03/05/17 05:12 Toxic Vacuolation Not Reportable 03/05/17 05:12 Dohle Bodies Not Reportable 03/05/17 05:12 Pelger-Huet Anomaly Not Reportable 03/05/17 05:12 Jack Rods Not Reportable 03/05/17 05:12 Platelet Estimate Consistent w auto 03/05/17 05:12 Clumped Platelets Not Reportable 03/05/17 05:12 Plt Clumps, EDTA Not Reportable 03/05/17 05:12 Large Platelets Not Reportable 03/05/17 05:12 Giant Platelets Not Reportable 03/05/17 05:12 Platelet Satelliting Not Reportable 03/05/17 05:12 Plt Morphology Comment Not Reportable 03/05/17 05:12 RBC Morphology Normal 03/05/17 05:12 Dimorphic RBCs Not Reportable 03/05/17 05:12 Polychromasia Not Reportable 03/05/17 05:12 Hypochromasia Not Reportable 03/05/17 05:12 Poikilocytosis Not Reportable 03/05/17 05:12 Anisocytosis Not Reportable 03/05/17 05:12 Microcytosis Not Reportable 03/05/17 05:12 Macrocytosis Not Reportable 03/05/17 05:12 Spherocytes Not Reportable 03/05/17 05:12 Pappenheimer Bodies Not Reportable 03/05/17 05:12 Sickle Cells Not Reportable 03/05/17 05:12 Target Cells Not Reportable 03/05/17 05:12 Tear Drop Cells Not Reportable 03/05/17 05:12 Ovalocytes Not Reportable 03/05/17 05:12 Helmet Cells Not Reportable 03/05/17 05:12 [place] Bodies Not Reportable 03/05/17 05:12 [place] Rings Not Reportable 03/05/17 05:12 [place] Cells Not Reportable 03/05/17 05:12 Bite Cells Not Reportable 03/05/17 05:12 Crenated Cell Not Reportable 03/05/17 05:12 Elliptocytes Not Reportable 03/05/17 05:12 Acanthocytes (Spur) Not Reportable 03/05/17 05:12 Rouleaux Not Reportable 03/05/17 05:12 Hemoglobin C Crystals Not Reportable 03/05/17 05:12 Schistocytes Not Reportable 03/05/17 05:12 Malaria parasites Not Reportable 03/05/17 05:12 Asif Bodies Not Reportable 03/05/17 05:12 Hem Pathologist Commnt No 03/05/17 05:12 PT 17.2 Sec. (12.2-14.9) H 03/05/17 05:12 INR 1.34 (0.87-1.13) H 03/05/17 05:12 APTT 47.9 Sec. (24.2-36.6) H 03/04/17 04:22 Sodium 141 mmol/L (137-145) 03/05/17 05:12 Potassium 3.9 mmol/L (3.6-5.0) 03/05/17 05:12 Chloride 101.4 mmol/L (98-107) 03/05/17 05:12 Carbon Dioxide 24 mmol/L (22-30) 03/05/17 05:12 Anion Gap 20 mmol/L 03/05/17 05:12 BUN 16 mg/dL (9-20) 03/05/17 05:12 Creatinine 0.8 mg/dL (0.8-1.5) 03/05/17 05:12 Estimated GFR > 60 ml/min 03/05/17 05:12 BUN/Creatinine Ratio 20 % 03/05/17 05:12 Glucose 93 mg/dL (75-100) 03/05/17 05:12 Lactic Acid 2.00 mmol/L (0.7-2.0) 03/04/17 10:38 Calcium 9.3 mg/dL (8.4-10.2) 03/05/17 05:12 Magnesium 1.90 mg/dL (1.7-2.3) 03/05/17 05:12 Total Bilirubin 1.40 mg/dL (0.1-1.2) H 03/05/17 05:12 Direct Bilirubin < 0.2 mg/dL (0-0.2) 03/03/17 16:11 Indirect Bilirubin 0.8 mg/dL 03/03/17 16:11 AST 19 units/L (5-40) 03/05/17 05:12 ALT 11 units/L (7-56) 03/05/17 05:12 Alkaline Phosphatase 58 units/L (35-129) 03/05/17 05:12 Total Protein 6.7 g/dL (6.3-8.2) 03/05/17 05:12 Albumin 3.6 g/dL (3.9-5) L 03/05/17 05:12 Albumin/Globulin Ratio 1.2 % 03/05/17 05:12 Amylase 49 units/L (27-131) 03/05/17 05:12 Lipase 16 units/L (13-60) 03/03/17 16:11 Urine Color [place] (Yellow) 03/04/17 12:08 Urine Turbidity Clear (Clear) 03/04/17 12:08 Urine pH 5.0 (5.0-7.0) 03/04/17 12:08 Ur Specific [place] 1.056 (1.003-1.030) H 03/04/17 12:08 Urine Protein 100 mg/dl mg/dL (Negative) 03/04/17 12:08 Urine Glucose (UA) Neg mg/dL (Negative) 03/04/17 12:08 Urine Ketones 20 mg/dL (Negative) 03/04/17 12:08 Urine Blood Mod (Negative) 03/04/17 12:08 Urine Nitrite Neg (Negative) 03/04/17 12:08 Urine Bilirubin Neg (Negative) 03/04/17 12:08 Urine Urobilinogen < 2.0 mg/dL (<2.0) 03/04/17 12:08 Ur Leukocyte Esterase Neg (Negative) 03/04/17 12:08 Urine WBC (Auto) 4.0 /HPF (0.0-6.0) 03/04/17 12:08 Urine RBC (Auto) 19.0 /HPF (0.0-6.0) 03/04/17 12:08 U Epithel Cells (Auto) 1.0 /HPF (0-13.0) 03/04/17 12:08 Urine Mucus 3+ /HPF 03/04/17 12:08 Blood Type O POSITIVE 03/04/17 14:21
[2017-03-05] MEDS: NACL 0.45% 1000 ML 1,000 ML IV SCH (15:04)
[2017-03-05] MEDS: HEPARIN SUB-Q SCH (22:27)
[2017-03-06] MEDS: MINERAL OIL FEEDTUBE SCH ×6 (01:21→22:44)
[2017-03-06] MEDS: LOPRESSOR IV SCH ×4 (01:22→17:41)
[2017-03-06] MEDS: FLAGYL 500 MG/100 ML 500 MG/100 ML BAG IV SCH ×3 (05:27→22:39)
[2017-03-06] MEDS: NACL 0.45% 1000 ML 1,000 ML IV SCH (05:40)
[2017-03-06 06:43] LABS: Hematocrit 41.4 % (35.5-45.6); Hemoglobin 14.4 gm/dl (11.8-15.2); Mean Corpuscular HGB Conc 35 % (32-34); Mean Corpuscular Hemoglobin 35 pg (28-32); Mean Corpuscular Volume 100 fl (84-94); Platelet Count 150 K/mm3 (140-440); Red Blood Count 4.16 M/mm3 (3.65-5.03); White Blood Count 4.8 K/mm3 (4.5-11.0)
[2017-03-06 06:57] LABS: INR 1.19 (0.87-1.13)
[2017-03-06 06:58] LABS: Partial Thromboplastin Time 30.6 Sec. (24.2-36.6)
[2017-03-06 07:01] LABS: Anion Gap 18 mmol/L; BUN/Creatinine Ratio 17; Blood Urea Nitrogen 12 mg/dL (9-20); Calcium 8.6 mg/dL (8.4-10.2); Carbon Dioxide 23 mmol/L (22-30); Glucose 86 mg/dL (75-100); Potassium 3.9 mmol/L (3.6-5.0); Sodium 138 mmol/L (137-145)
[2017-03-06] MEDS: LEVAQUIN 500MG/100ML 500 MG/100 ML BAG IV SCH (09:25)
[2017-03-06] MEDS: PEPCID IV SCH ×2 (09:27→22:44)
[2017-03-06] MEDS: HEPARIN SUB-Q SCH ×2 (09:28→22:40)
--- NOTE | 2017-03-06 09:40 | XRay Report ---
ABDOMINAL SERIES WITH CXR THREE VIEWS: 03/06/17 CLINICAL: Small bowel obstruction. COMPARISON: 03/04/17 FINDINGS: Supine and upright views of the abdomen demonstrate improvement with decreased small bowel distention. A few moderately dilated loops of small bowel remain in the left upper quadrant. Gas in the colon and in the rectum. The stomach is nondistended with a nasogastric tube in the stomach. No pneumoperitoneum. No mass or suspicious calcifications.The bones and soft tissues are normal.The chest x-ray demonstrates cardiomegaly with no CHF. IMPRESSION: Significant improvement with near complete resolution of small bowel dilatation. No small bowel obstruction.
[2017-03-06] MEDS ORDERED: TYLENOL PR PRN (10:57)
--- NOTE | 2017-03-06 11:04 | Progress Note ---
Assessment and Plan Assessment and plan: Patient is 81-year-old man with history of A. fib on warfarin, hypertension, CHF , tobacco dependency, dyslipidemia and coronary artery disease who presented to the emergency Department at [facility] (first visit here-main doctors are at [facility]) with nausea, vomiting and abdominal pains. 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 -Small bowel obstruction with peritonitis: Discussed with general surgeon Dr. Gong, NG tube to be repositioned, careful with suction due to therapeutic INR , nothing by mouth, IV pain control, empiric IV antibiotics -Malignant hypertension: prn IV labetalol -Atrial fibrillation/aflutter with RVR on warfarin with therapeutic INR: Will need to be reversed for possible surgery per Dr. Gong who recommends 2 units of FFP and vitamin K, we'll consult cardiology to manage, careful with history of heart failure, possibly will need IV heparin, consulted [facility] because they also go to [facility]; therefore, they can review his [facility] records and they are on-call today. 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 Gong: Pt feeling better. states had small BM. some blood tinged drainage noted in NG, Abd - less distended, non tender, stable - slightly improving, cardiology & vasc surg eval noted, will start mineral oil thru NG x 48 hrs, f/u abd series in am. per Cardiology, Dr. 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 Initiate IV heparin if no surgery is planned in the near term Initiate rate control with IV lopressor as patient is NPO May proceed with abdominal surgery cardiac mcmanus - moderate perioperative cardiac risk" Unable to get bed in ICU yesterday, pt doing better today, counseled discharge. 03/06/2017: Patient felt much better, less abdominal distention without pains now. Abdominal series with chest x-ray 3 views reported as significant improvement with near complete resolution of small bowel dilatation, no small bowel obstruction. NG tube in the stomach.. Chest x-ray dementia a cardiomegaly without CHF. Patient responding to nonsurgical intervention. New issue today low grade temperature 100.2 Fahrenheit, ordered pr Tylenol and blood cultures, patient already on empiric IV Levaquin, will continue History Interval history: Patient was seen and examined. Follow-up on current diagnosis/abdominal pain nausea vomiting which has improved. Overnight uneventful. Patient denies any chest pain, shortness breath, or severe headaches. Imaging, nursing note, chart , labs and old chart reviewed. Discussed with patient. Patient has NG tube Hospitalist Physical - Physical exam Narrative exam: GEN: Ill-appearing man, BMI 35.4, no respiratory distress awake alert oriented 3 HEENT: NCAT, EOMI, PERRL, OP Clear, NG tube in place NECK: supple, no adenopathy, no thyromegaly, no JVD CVS/HEART: Irregular regular NORMAL S1S2, NO JVD, pulses present bilaterally CHEST/LUNGS: Bibasilar crackles Symmetrical chest expansion, good air entry bilaterally GI/Abdomen: less distension, diffuse tenderness resolving, good bowel sounds, no guarding, no rebound /Bladder: no suprapubic tenderness, no CVA or paraspinal tenderness EXT/Skin: no c/c/e, no obvious rash MSK: FROM x 4 Neuro: CN 2-12 grossly intact except facial asymmetry, no new focal deficits Psych: calm - Constitutional Vitals: Temp Pulse Resp BP Pulse Ox 100.2 F H 100 H 18 162/111 95 03/06/17 08:10 03/06/17 08:10 03/06/17 08:10 03/06/17 08:10 03/06/17 08:10 General appearance: Present: no acute distress Results - Labs CBC & Chem 7: 03/06/17 06:23 03/06/17 06:23 Labs: Laboratory Last Values WBC 4.8 K/mm3 (4.5-11.0) 03/06/17 06:23 RBC 4.16 M/mm3 (3.65-5.03) 03/06/17 06:23 Hgb 14.4 gm/dl (11.8-15.2) 03/06/17 06:23 Hct 41.4 % (35.5-45.6) 03/06/17 06:23 MCV 100 fl (84-94) H 03/06/17 06:23 MCH 35 pg (28-32) H 03/06/17 06:23 MCHC 35 % (32-34) H 03/06/17 06:23 RDW 14.0 % (13.2-15.2) 03/06/17 06:23 Plt Count 150 K/mm3 (140-440) 03/06/17 06:23 Lymph % (Auto) 15.8 % (13.4-35.0) 03/04/17 04:22 [place] % (Auto) [employer] 03/05/17 05:12 Eos % (Auto) 0.3 % (0.0-4.3) 03/04/17 04:22 Baso % (Auto) 0.4 % (0.0-1.8) 03/04/17 04:22 Lymph # 0.9 K/mm3 (1.2-5.4) L 03/04/17 04:22 [place] # 0.3 K/mm3 (0.0-0.8) 03/04/17 04:22 Eos # 0.0 K/mm3 (0.0-0.4) 03/04/17 04:22 Baso # 0.0 K/mm3 (0.0-0.1) 03/04/17 04:22 Add Manual Diff Complete 03/05/17 05:12 Total Counted 100 03/05/17 05:12 Seg Neutrophils % 78.2 % (40.0-70.0) H 03/04/17 04:22 Seg Neuts % (Manual) 34.0 % (40.0-70.0) L 03/05/17 05:12 Band Neutrophils % 6.0 % 03/05/17 05:12 Lymphocytes % (Manual) 37.0 % (13.4-35.0) H 03/05/17 05:12 Reactive Lymphs % (Man) 0 % 03/05/17 05:12 Monocytes % (Manual) 20.0 % (0.0-7.3) H 03/05/17 05:12 Eosinophils % (Manual) 2.0 % (0.0-4.3) 03/05/17 05:12 Basophils % (Manual) 1.0 % (0.0-1.8) 03/05/17 05:12 Metamyelocytes % 0 % 03/05/17 05:12 Myelocytes % 0 % 03/05/17 05:12 Promyelocytes % 0 % 03/05/17 05:12 Blast Cells % 0 % 03/05/17 05:12 Nucleated RBC % Not Reportable 03/05/17 05:12 Seg Neutrophils # 4.5 K/mm3 (1.8-7.7) 03/04/17 04:22 Seg Neutrophils # Man 1.0 K/mm3 (1.8-7.7) L 03/05/17 05:12 Band Neutrophils # 0.2 K/mm3 03/05/17 05:12 Lymphocytes # (Manual) 1.0 K/mm3 (1.2-5.4) L 03/05/17 05:12 Abs React Lymphs (Man) 0.0 K/mm3 03/05/17 05:12 Monocytes # (Manual) 0.6 K/mm3 (0.0-0.8) 03/05/17 05:12 Eosinophils # (Manual) 0.1 K/mm3 (0.0-0.4) 03/05/17 05:12 Basophils # (Manual) 0.0 K/mm3 (0.0-0.1) 03/05/17 05:12 Metamyelocytes # 0.0 K/mm3 03/05/17 05:12 Myelocytes # 0.0 K/mm3 03/05/17 05:12 Promyelocytes # 0.0 K/mm3 03/05/17 05:12 Blast Cells # 0.0 K/mm3 03/05/17 05:12 WBC Morphology Not Reportable 03/05/17 05:12 Hypersegmented Neuts Not Reportable 03/05/17 05:12 Hyposegmented Neuts Not Reportable 03/05/17 05:12 Hypogranular Neuts Not Reportable 03/05/17 05:12 Smudge Cells Not Reportable 03/05/17 05:12 Toxic Granulation Not Reportable 03/05/17 05:12 Toxic Vacuolation Not Reportable 03/05/17 05:12 Dohle Bodies Not Reportable 03/05/17 05:12 [place]-Huet Anomaly Not Reportable 03/05/17 05:12 Jack Rods Not Reportable 03/05/17 05:12 Platelet Estimate Consistent w auto 03/05/17 05:12 Clumped Platelets Not Reportable 03/05/17 05:12 Plt Clumps, EDTA Not Reportable 03/05/17 05:12 Large Platelets Not Reportable 03/05/17 05:12 Giant Platelets Not Reportable 03/05/17 05:12 Platelet Satelliting Not Reportable 03/05/17 05:12 Plt Morphology Comment Not Reportable 03/05/17 05:12 RBC Morphology Normal 03/05/17 05:12 Dimorphic RBCs Not Reportable 03/05/17 05:12 Polychromasia Not Reportable 03/05/17 05:12 Hypochromasia Not Reportable 03/05/17 05:12 Poikilocytosis Not Reportable 03/05/17 05:12 Anisocytosis Not Reportable 03/05/17 05:12 Microcytosis Not Reportable 03/05/17 05:12 Macrocytosis Not Reportable 03/05/17 05:12 Spherocytes Not Reportable 03/05/17 05:12 Pappenheimer Bodies Not Reportable 03/05/17 05:12 Sickle Cells Not Reportable 03/05/17 05:12 Target Cells Not Reportable 03/05/17 05:12 Tear Drop Cells Not Reportable 03/05/17 05:12 Ovalocytes Not Reportable 03/05/17 05:12 Helmet Cells Not Reportable 03/05/17 05:12 [place] Bodies Not Reportable 03/05/17 05:12 [place] Rings Not Reportable 03/05/17 05:12 [place] Cells Not Reportable 03/05/17 05:12 Bite Cells Not Reportable 03/05/17 05:12 Crenated Cell Not Reportable 03/05/17 05:12 Elliptocytes Not Reportable 03/05/17 05:12 Acanthocytes (Spur) Not Reportable 03/05/17 05:12 Rouleaux Not Reportable 03/05/17 05:12 Hemoglobin C Crystals Not Reportable 03/05/17 05:12 Schistocytes Not Reportable 03/05/17 05:12 Malaria parasites Not Reportable 03/05/17 05:12 Asif Bodies Not Reportable 03/05/17 05:12 Hem Pathologist Commnt No 03/05/17 05:12 PT 15.7 Sec. (12.2-14.9) H 03/06/17 06:23 INR 1.19 (0.87-1.13) H 03/06/17 06:23 APTT 30.6 Sec. (24.2-36.6) 03/06/17 06:23 Sodium 138 mmol/L (137-145) 03/06/17 06:23 Potassium 3.9 mmol/L (3.6-5.0) 03/06/17 06:23 Chloride 101.0 mmol/L (98-107) 03/06/17 06:23 Carbon Dioxide 23 mmol/L (22-30) 03/06/17 06:23 Anion Gap 18 mmol/L 03/06/17 06:23 BUN 12 mg/dL (9-20) 03/06/17 06:23 Creatinine 0.7 mg/dL (0.8-1.5) L 03/06/17 06:23 Estimated GFR > 60 ml/min 03/06/17 06:23 BUN/Creatinine Ratio 17 % 03/06/17 06:23 Glucose 86 mg/dL (75-100) 03/06/17 06:23 Lactic Acid 2.00 mmol/L (0.7-2.0) 03/04/17 10:38 Calcium 8.6 mg/dL (8.4-10.2) 03/06/17 06:23 Magnesium 1.80 mg/dL (1.7-2.3) 03/06/17 06:23 Total Bilirubin 1.40 mg/dL (0.1-1.2) H 03/05/17 05:12 Direct Bilirubin < 0.2 mg/dL (0-0.2) 03/03/17 16:11 Indirect Bilirubin 0.8 mg/dL 03/03/17 16:11 AST 19 units/L (5-40) 03/05/17 05:12 ALT 11 units/L (7-56) 03/05/17 05:12 Alkaline Phosphatase 58 units/L (35-129) 03/05/17 05:12 Total Protein 6.7 g/dL (6.3-8.2) 03/05/17 05:12 Albumin 3.6 g/dL (3.9-5) L 03/05/17 05:12 Albumin/Globulin Ratio 1.2 % 03/05/17 05:12 Amylase 49 units/L (27-131) 03/05/17 05:12 Lipase 16 units/L (13-60) 03/03/17 16:11 Urine Color [place] (Yellow) 03/04/17 12:08 Urine Turbidity Clear (Clear) 03/04/17 12:08 Urine pH 5.0 (5.0-7.0) 03/04/17 12:08 Ur Specific [place] 1.056 (1.003-1.030) H 03/04/17 12:08 Urine Protein 100 mg/dl mg/dL (Negative) 03/04/17 12:08 Urine Glucose (UA) Neg mg/dL (Negative) 03/04/17 12:08 Urine Ketones 20 mg/dL (Negative) 03/04/17 12:08 Urine Blood Mod (Negative) 03/04/17 12:08 Urine Nitrite Neg (Negative) 03/04/17 12:08 Urine Bilirubin Neg (Negative) 03/04/17 12:08 Urine Urobilinogen < 2.0 mg/dL (<2.0) 03/04/17 12:08 Ur Leukocyte Esterase Neg (Negative) 03/04/17 12:08 Urine WBC (Auto) 4.0 /HPF (0.0-6.0) 03/04/17 12:08 Urine RBC (Auto) 19.0 /HPF (0.0-6.0) 03/04/17 12:08 U Epithel Cells (Auto) 1.0 /HPF (0-13.0) 03/04/17 12:08 Urine Mucus 3+ /HPF 03/04/17 12:08 Blood Type O POSITIVE 03/04/17 14:21
--- NOTE | 2017-03-06 11:09 | Progress Note ---
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 INR has decreased since admission. On IV lopressor for rate control as patient is NPO May proceed with abdominal surgery cardiac mcmanus - moderate perioperative cardiac risk" Subjective Date of service: 03/06/17 Principal diagnosis: small bowel obstruction Interval history: No events overnight Objective Vital Signs Temp Pulse Pulse Resp BP BP Pulse Ox 03/06/17 08:10 100.2 F H 100 H 18 162/111 95 03/06/17 05:26 96 H 162/102 03/06/17 04:13 99.4 F 94 H 20 162/102 92 03/06/17 01:22 99 H 171/101 03/06/17 01:05 106 H 03/05/17 20:50 95 H 20 03/05/17 20:32 99.6 F 95 H 20 136/109 03/05/17 18:03 99 H 154/100 03/05/17 14:00 98.3 F 91 H 20 148/101 96 03/05/17 13:07 99 H 166/109 - Physical Examination Narrative exam: Physical examination General.: Appears well, mild distress due to pain, nontoxic HEENT: Moist mucous membranes, extraocular muscles intact, no lymphadenopathy Neck: supple Cardiac: S1-S2 heard Lungs: clear to auscultation bilaterally Abdomen: Distended Extremities: no edema clubbing or cyanosis Skin: no rash or lesions Neurologic: no gross focal deficits, hard of hearing Psych: appropriate behavior, appropriate mood, corporative, judgment intact HEENT: Positive: PERRL Neck: Positive: neck supple Neuro: Positive: Grossly Intact Abdomen: Positive: Soft Extremities: Present: +1 Edema - Labs and Meds Coagulation 03/06/17 Range/Units 06:23 PT 15.7 H (12.2-14.9) Sec. INR 1.19 H (0.87-1.13) APTT 30.6 (24.2-36.6) Sec. CBC 03/06/17 Range/Units 06:23 WBC 4.8 (4.5-11.0) K/mm3 RBC 4.16 (3.65-5.03) M/mm3 Hgb 14.4 (11.8-15.2) gm/dl Hct 41.4 (35.5-45.6) % Plt Count 150 (140-440) K/mm3 Comprehensive Metabolic Panel 03/06/17 Range/Units 06:23 Sodium 138 (137-145) mmol/L Potassium 3.9 (3.6-5.0) mmol/L Chloride 101.0 (98-107) mmol/L Carbon Dioxide 23 (22-30) mmol/L BUN 12 (9-20) mg/dL Creatinine 0.7 L (0.8-1.5) mg/dL Glucose 86 (75-100) mg/dL Calcium 8.6 (8.4-10.2) mg/dL
--- NOTE | 2017-03-06 14:14 | Progress Note ---
Assessment and Plan Pt continues to feel better. + flatus Abd much softer. hypoactive BS non tender Abd series improved. air noted in rectum improving partial sbo continue present care f/u abd series in am possible SBFT study on Mon Selected Entries 03/06/17 03/06/17 08:10 13:26 Temperature 100.2 F H Respiratory 18 Rate Blood Pressure 157/109 Laboratory Tests 03/06/17 03/06/17 03/06/17 06:23 06:23 06:23 WBC 4.8 Hgb 14.4 Hct 41.4 PT 15.7 H INR 1.19 H APTT 30.6 Sodium 138 Potassium 3.9 Chloride 101.0 Carbon Dioxide 23 BUN 12 Creatinine 0.7 L Objective Vital Signs - 12hr 03/06/17 03/06/17 03/06/17 04:13 05:26 08:10 Temperature 99.4 F 100.2 F H Pulse Rate 94 H 96 H 100 H Respiratory 20 18 Rate Blood Pressure 162/102 Blood Pressure 162/102 162/111 [Left] O2 Sat by Pulse 92 95 Oximetry 03/06/17 13:26 Temperature Pulse Rate 99 H Respiratory Rate Blood Pressure 157/109 Blood Pressure [Left] O2 Sat by Pulse Oximetry - Labs 03/06/17 06:23 03/06/17 06:23 Diabetes panel 03/06/17 Range/Units 06:23 Sodium 138 (137-145) mmol/L Potassium 3.9 (3.6-5.0) mmol/L Chloride 101.0 (98-107) mmol/L Carbon Dioxide 23 (22-30) mmol/L BUN 12 (9-20) mg/dL Creatinine 0.7 L (0.8-1.5) mg/dL Glucose 86 (75-100) mg/dL Calcium 8.6 (8.4-10.2) mg/dL Calcium panel 03/06/17 Range/Units 06:23 Calcium 8.6 (8.4-10.2) mg/dL Pituitary panel 03/06/17 Range/Units 06:23 Sodium 138 (137-145) mmol/L Potassium 3.9 (3.6-5.0) mmol/L Chloride 101.0 (98-107) mmol/L Carbon Dioxide 23 (22-30) mmol/L BUN 12 (9-20) mg/dL Creatinine 0.7 L (0.8-1.5) mg/dL Glucose 86 (75-100) mg/dL Calcium 8.6 (8.4-10.2) mg/dL Adrenal panel 03/06/17 Range/Units 06:23 Sodium 138 (137-145) mmol/L Potassium 3.9 (3.6-5.0) mmol/L Chloride 101.0 (98-107) mmol/L Carbon Dioxide 23 (22-30) mmol/L BUN 12 (9-20) mg/dL Creatinine 0.7 L (0.8-1.5) mg/dL Glucose 86 (75-100) mg/dL Calcium 8.6 (8.4-10.2) mg/dL
[2017-03-06] MEDS: CHLORASEPTIC MM PRN (23:32)
[2017-03-07] MEDS: MINERAL OIL FEEDTUBE SCH ×7 (01:39→22:14)
[2017-03-07] MEDS: LOPRESSOR IV SCH ×4 (01:42→19:00)
[2017-03-07] MEDS: NACL 0.45% 1000 ML 1,000 ML IV SCH (04:13)
[2017-03-07 04:43] LABS: Hematocrit 42.5 % (35.5-45.6); Hemoglobin 14.5 gm/dl (11.8-15.2); Mean Corpuscular HGB Conc 34 % (32-34); Mean Corpuscular Hemoglobin 34 pg (28-32); Mean Corpuscular Volume 100 fl (84-94); Red Blood Count 4.27 M/mm3 (3.65-5.03); Red Cell Distribution Width 14.1 % (13.2-15.2); White Blood Count 6.6 K/mm3 (4.5-11.0)
[2017-03-07 04:49] LABS: Platelet Count 141 K/mm3 (140-440)
[2017-03-07 05:01] LABS: Anion Gap 19 mmol/L; BUN/Creatinine Ratio 19; Blood Urea Nitrogen 13 mg/dL (9-20); Calcium 8.8 mg/dL (8.4-10.2); Carbon Dioxide 22 mmol/L (22-30); Chloride 97.8 mmol/L (98-107); Glucose 81 mg/dL (75-100); Potassium 3.6 mmol/L (3.6-5.0); Sodium 135 mmol/L (137-145)
[2017-03-07] MEDS: FLAGYL 500 MG/100 ML 500 MG/100 ML BAG IV SCH ×3 (05:58→22:14)
--- NOTE | 2017-03-07 09:25 | XRay Report ---
ABDOMINAL SERIES THREE VIEWS: 03/07/17 CLINICAL: Followup small bowel obstruction. FINDINGS: Increased distention of small bowel throughout the abdomen but gas throughout the colon and increased gas and stool in the rectum. No pneumoperitoneum. The nasogastric tube tip remains in the upper stomach. IMPRESSION: Increased small bowel distention suggesting at least a partial small bowel obstruction.
--- NOTE | 2017-03-07 10:31 | Progress Note ---
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 INR has decreased since admission. On IV lopressor for rate control as patient is NPO May proceed with abdominal surgery if needed ,cardiac mcmanus - moderate perioperative cardiac risk" Subjective Date of service: 03/07/17 Principal diagnosis: small bowel obstruction Interval history: No events overnight Patient doing much better Objective Vital Signs Temp Pulse Pulse Resp BP BP Pulse Ox 03/07/17 07:53 98.4 F 90 18 148/102 100 03/07/17 05:54 98 H 163/108 03/07/17 04:43 98.8 F 98 H 20 163/108 98 03/07/17 01:42 103 H 159/106 03/06/17 23:50 108 H 03/06/17 22:00 100 H 03/06/17 20:08 162/106 03/06/17 19:37 97.6 F 93 H 162/106 03/06/17 17:41 102 H 164/106 03/06/17 13:26 99 H 157/109 - Physical Examination Narrative exam: Physical examination General.: Appears well, mild distress due to pain, nontoxic HEENT: Moist mucous membranes, extraocular muscles intact, no lymphadenopathy Neck: supple Cardiac: S1-S2 heard Lungs: clear to auscultation bilaterally Abdomen: Distended bowel sounds heard soft nontender Extremities: no edema clubbing or cyanosis Skin: no rash or lesions Neurologic: no gross focal deficits, hard of hearing Psych: appropriate behavior, appropriate mood, corporative, judgment intact HEENT: Positive: PERRL Neck: Positive: neck supple Neuro: Positive: Grossly Intact Abdomen: Positive: Soft Extremities: Present: +1 Edema - Labs and Meds CBC 03/07/17 Range/Units 04:04 WBC 6.6 (4.5-11.0) K/mm3 RBC 4.27 (3.65-5.03) M/mm3 Hgb 14.5 (11.8-15.2) gm/dl Hct 42.5 (35.5-45.6) % Plt Count 141 (140-440) K/mm3 Comprehensive Metabolic Panel 03/07/17 Range/Units 04:04 Sodium 135 L (137-145) mmol/L Potassium 3.6 (3.6-5.0) mmol/L Chloride 97.8 L (98-107) mmol/L Carbon Dioxide 22 (22-30) mmol/L BUN 13 (9-20) mg/dL Creatinine 0.7 L (0.8-1.5) mg/dL Glucose 81 (75-100) mg/dL Calcium 8.8 (8.4-10.2) mg/dL
[2017-03-07] MEDS: LEVAQUIN 500MG/100ML 500 MG/100 ML BAG IV SCH (10:42)
[2017-03-07] MEDS: HEPARIN SUB-Q SCH ×2 (10:43→22:43)
[2017-03-07] MEDS: PEPCID IV SCH ×2 (10:43→22:17)
[2017-03-07] MEDS ORDERED: NACL P/F VIAL (10 ML) 10 ML ONE (10:43)
--- NOTE | 2017-03-07 10:57 | Progress Note ---
Assessment and Plan Assessment and plan: Patient is 81-year-old man with history of A. fib on warfarin, hypertension, CHF , tobacco dependency, dyslipidemia and coronary artery disease who presented to the emergency Department at [facility] (first visit here-main doctors are at [facility]) with nausea, vomiting and abdominal pains. 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 -Small bowel obstruction with peritonitis: Discussed with general surgeon Dr. Gong, NG tube to be repositioned, careful with suction due to therapeutic INR , nothing by mouth, IV pain control, empiric IV antibiotics -Malignant hypertension: prn IV labetalol -Atrial fibrillation/aflutter with RVR on warfarin with therapeutic INR: Will need to be reversed for possible surgery per Dr. Gong who recommends 2 units of FFP and vitamin K, we'll consult cardiology to manage, careful with history of heart failure, possibly will need IV heparin, consulted [facility] because they also go to [facility]; therefore, they can review his [facility] records and they are on-call today. 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 Gong: Pt feeling better. states had small BM. some blood tinged drainage noted in NG, Abd - less distended, non tender, stable - slightly improving, cardiology & vasc surg eval noted, will start mineral oil thru NG x 48 hrs, f/u abd series in am. per Cardiology, Dr. 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 Initiate IV heparin if no surgery is planned in the near term Initiate rate control with IV lopressor as patient is NPO May proceed with abdominal surgery cardiac mcmanus - moderate perioperative cardiac risk" Unable to get bed in ICU yesterday, pt doing better today, cancelled 03/06/2017: Patient felt much better, less abdominal distention without pains now. Abdominal series with chest x-ray 3 views reported as significant improvement with near complete resolution of small bowel dilatation, no small bowel obstruction. NG tube in the stomach.. Chest x-ray dementia a cardiomegaly without CHF. Patient responding to nonsurgical intervention. New issue today low grade temperature 100.2 Fahrenheit, ordered pr Tylenol and blood cultures, patient already on empiric IV Levaquin, will continue 03/07/17: He is doing better. Still NGT to LIS. Imaging reviewed. History Interval history: Patient was seen and examined. Follow-up on current diagnosis/abdominal pain nausea vomiting which has improved. Overnight uneventful. Patient denies any chest pain, shortness breath, or severe headaches. Imaging, nursing note, chart , labs and old chart reviewed. Discussed with patient. Patient has NG tube Hospitalist Physical - Physical exam Narrative exam: GEN: Ill-appearing man, BMI 35.4, no respiratory distress awake alert oriented 3 HEENT: NCAT, EOMI, PERRL, OP Clear, NG tube in place NECK: supple, no adenopathy, no thyromegaly, no JVD CVS/HEART: Irregular regular NORMAL S1S2, NO JVD, pulses present bilaterally CHEST/LUNGS: Bibasilar crackles Symmetrical chest expansion, good air entry bilaterally GI/Abdomen: less distension, diffuse tenderness resolving, good bowel sounds, no guarding, no rebound /Bladder: no suprapubic tenderness, no CVA or paraspinal tenderness EXT/Skin: no c/c/e, no obvious rash MSK: FROM x 4 Neuro: CN 2-12 grossly intact except facial asymmetry, no new focal deficits Psych: calm - Constitutional Vitals: Temp Pulse Resp BP Pulse Ox 98.4 F 90 18 148/102 100 03/07/17 07:53 03/07/17 07:53 03/07/17 07:53 03/07/17 07:53 03/07/17 07:53 General appearance: Present: no acute distress Results - Labs CBC & Chem 7: 03/07/17 04:04 03/07/17 04:04 Labs: Laboratory Last Values WBC 6.6 K/mm3 (4.5-11.0) 03/07/17 04:04 RBC 4.27 M/mm3 (3.65-5.03) 03/07/17 04:04 Hgb 14.5 gm/dl (11.8-15.2) 03/07/17 04:04 Hct 42.5 % (35.5-45.6) 03/07/17 04:04 MCV 100 fl (84-94) H 03/07/17 04:04 MCH 34 pg (28-32) H 03/07/17 04:04 MCHC 34 % (32-34) 03/07/17 04:04 RDW 14.1 % (13.2-15.2) 03/07/17 04:04 Plt Count 141 K/mm3 (140-440) 03/07/17 04:04 Lymph % (Auto) 15.8 % (13.4-35.0) 03/04/17 04:22 [place] % (Auto) Manager Of Administration 03/05/17 05:12 Eos % (Auto) 0.3 % (0.0-4.3) 03/04/17 04:22 Baso % (Auto) 0.4 % (0.0-1.8) 03/04/17 04:22 Lymph # 0.9 K/mm3 (1.2-5.4) L 03/04/17 04:22 [place] # 0.3 K/mm3 (0.0-0.8) 03/04/17 04:22 Eos # 0.0 K/mm3 (0.0-0.4) 03/04/17 04:22 Baso # 0.0 K/mm3 (0.0-0.1) 03/04/17 04:22 Add Manual Diff Complete 03/05/17 05:12 Total Counted 100 03/05/17 05:12 Seg Neutrophils % 78.2 % (40.0-70.0) H 03/04/17 04:22 Seg Neuts % (Manual) 34.0 % (40.0-70.0) L 03/05/17 05:12 Band Neutrophils % 6.0 % 03/05/17 05:12 Lymphocytes % (Manual) 37.0 % (13.4-35.0) H 03/05/17 05:12 Reactive Lymphs % (Man) 0 % 03/05/17 05:12 Monocytes % (Manual) 20.0 % (0.0-7.3) H 03/05/17 05:12 Eosinophils % (Manual) 2.0 % (0.0-4.3) 03/05/17 05:12 Basophils % (Manual) 1.0 % (0.0-1.8) 03/05/17 05:12 Metamyelocytes % 0 % 03/05/17 05:12 Myelocytes % 0 % 03/05/17 05:12 Promyelocytes % 0 % 03/05/17 05:12 Blast Cells % 0 % 03/05/17 05:12 Nucleated RBC % Not Reportable 03/05/17 05:12 Seg Neutrophils # 4.5 K/mm3 (1.8-7.7) 03/04/17 04:22 Seg Neutrophils # Man 1.0 K/mm3 (1.8-7.7) L 03/05/17 05:12 Band Neutrophils # 0.2 K/mm3 03/05/17 05:12 Lymphocytes # (Manual) 1.0 K/mm3 (1.2-5.4) L 03/05/17 05:12 Abs React Lymphs (Man) 0.0 K/mm3 03/05/17 05:12 Monocytes # (Manual) 0.6 K/mm3 (0.0-0.8) 03/05/17 05:12 Eosinophils # (Manual) 0.1 K/mm3 (0.0-0.4) 03/05/17 05:12 Basophils # (Manual) 0.0 K/mm3 (0.0-0.1) 03/05/17 05:12 Metamyelocytes # 0.0 K/mm3 03/05/17 05:12 Myelocytes # 0.0 K/mm3 03/05/17 05:12 Promyelocytes # 0.0 K/mm3 03/05/17 05:12 Blast Cells # 0.0 K/mm3 03/05/17 05:12 WBC Morphology Not Reportable 03/05/17 05:12 Hypersegmented Neuts Not Reportable 03/05/17 05:12 Hyposegmented Neuts Not Reportable 03/05/17 05:12 Hypogranular Neuts Not Reportable 03/05/17 05:12 Smudge Cells Not Reportable 03/05/17 05:12 Toxic Granulation Not Reportable 03/05/17 05:12 Toxic Vacuolation Not Reportable 03/05/17 05:12 Dohle Bodies Not Reportable 03/05/17 05:12 Pelger-Huet Anomaly Not Reportable 03/05/17 05:12 Jack Rods Not Reportable 03/05/17 05:12 Platelet Estimate Consistent w auto 03/05/17 05:12 Clumped Platelets Not Reportable 03/05/17 05:12 Plt Clumps, EDTA Not Reportable 03/05/17 05:12 Large Platelets Not Reportable 03/05/17 05:12 Giant Platelets Not Reportable 03/05/17 05:12 Platelet Satelliting Not Reportable 03/05/17 05:12 Plt Morphology Comment Not Reportable 03/05/17 05:12 RBC Morphology Normal 03/05/17 05:12 Dimorphic RBCs Not Reportable 03/05/17 05:12 Polychromasia Not Reportable 03/05/17 05:12 Hypochromasia Not Reportable 03/05/17 05:12 Poikilocytosis Not Reportable 03/05/17 05:12 Anisocytosis Not Reportable 03/05/17 05:12 Microcytosis Not Reportable 03/05/17 05:12 Macrocytosis Not Reportable 03/05/17 05:12 Spherocytes Not Reportable 03/05/17 05:12 Pappenheimer Bodies Not Reportable 03/05/17 05:12 Sickle Cells Not Reportable 03/05/17 05:12 Target Cells Not Reportable 03/05/17 05:12 Tear Drop Cells Not Reportable 03/05/17 05:12 Ovalocytes Not Reportable 03/05/17 05:12 Helmet Cells Not Reportable 03/05/17 05:12 [place] Bodies Not Reportable 03/05/17 05:12 [place] Rings Not Reportable 03/05/17 05:12 [place] Cells Not Reportable 03/05/17 05:12 Bite Cells Not Reportable 03/05/17 05:12 Crenated Cell Not Reportable 03/05/17 05:12 Elliptocytes Not Reportable 03/05/17 05:12 Acanthocytes (Spur) Not Reportable 03/05/17 05:12 Rouleaux Not Reportable 03/05/17 05:12 Hemoglobin C Crystals Not Reportable 03/05/17 05:12 Schistocytes Not Reportable 03/05/17 05:12 Malaria parasites Not Reportable 03/05/17 05:12 Asif Bodies Not Reportable 03/05/17 05:12 Hem Pathologist Commnt No 03/05/17 05:12 PT 15.7 Sec. (12.2-14.9) H 03/06/17 06:23 INR 1.19 (0.87-1.13) H 03/06/17 06:23 APTT 30.6 Sec. (24.2-36.6) 03/06/17 06:23 Sodium 135 mmol/L (137-145) L 03/07/17 04:04 Potassium 3.6 mmol/L (3.6-5.0) 03/07/17 04:04 Chloride 97.8 mmol/L (98-107) L 03/07/17 04:04 Carbon Dioxide 22 mmol/L (22-30) 03/07/17 04:04 Anion Gap 19 mmol/L 03/07/17 04:04 BUN 13 mg/dL (9-20) 03/07/17 04:04 Creatinine 0.7 mg/dL (0.8-1.5) L 03/07/17 04:04 Estimated GFR > 60 ml/min 03/07/17 04:04 BUN/Creatinine Ratio 19 % 03/07/17 04:04 Glucose 81 mg/dL (75-100) 03/07/17 04:04 Lactic Acid 2.00 mmol/L (0.7-2.0) 03/04/17 10:38 Calcium 8.8 mg/dL (8.4-10.2) 03/07/17 04:04 Magnesium 1.80 mg/dL (1.7-2.3) 03/06/17 06:23 Total Bilirubin 1.40 mg/dL (0.1-1.2) H 03/05/17 05:12 Direct Bilirubin < 0.2 mg/dL (0-0.2) 03/03/17 16:11 Indirect Bilirubin 0.8 mg/dL 03/03/17 16:11 AST 19 units/L (5-40) 03/05/17 05:12 ALT 11 units/L (7-56) 03/05/17 05:12 Alkaline Phosphatase 58 units/L (35-129) 03/05/17 05:12 Total Protein 6.7 g/dL (6.3-8.2) 03/05/17 05:12 Albumin 3.6 g/dL (3.9-5) L 03/05/17 05:12 Albumin/Globulin Ratio 1.2 % 03/05/17 05:12 Amylase 49 units/L (27-131) 03/05/17 05:12 Lipase 16 units/L (13-60) 03/03/17 16:11 Urine Color Karl[place] (Yellow) 03/04/17 12:08 Urine Turbidity Clear (Clear) 03/04/17 12:08 Urine pH 5.0 (5.0-7.0) 03/04/17 12:08 Ur Specific [place] 1.056 (1.003-1.030) H 03/04/17 12:08 Urine Protein 100 mg/dl mg/dL (Negative) 03/04/17 12:08 Urine Glucose (UA) Neg mg/dL (Negative) 03/04/17 12:08 Urine Ketones 20 mg/dL (Negative) 03/04/17 12:08 Urine Blood Mod (Negative) 03/04/17 12:08 Urine Nitrite Neg (Negative) 03/04/17 12:08 Urine Bilirubin Neg (Negative) 03/04/17 12:08 Urine Urobilinogen < 2.0 mg/dL (<2.0) 03/04/17 12:08 Ur Leukocyte Esterase Neg (Negative) 03/04/17 12:08 Urine WBC (Auto) 4.0 /HPF (0.0-6.0) 03/04/17 12:08 Urine RBC (Auto) 19.0 /HPF (0.0-6.0) 03/04/17 12:08 U Epithel Cells (Auto) 1.0 /HPF (0-13.0) 03/04/17 12:08 Urine Mucus 3+ /HPF 03/04/17 12:08 Blood Type O POSITIVE 03/04/17 14:21
--- NOTE | 2017-03-07 12:58 | Progress Note ---
Assessment and Plan Pt feeling well. just had large BM Abd soft Abd series - slight improvement (film taken before large BM) stable - improving will proceed with SBFT study in am Selected Entries 03/07/17 03/07/17 07:53 12:45 Temperature 98.4 F Pulse Rate 87 Respiratory 18 Rate Blood Pressure 148/103 [Left] Laboratory Tests 03/07/17 03/07/17 04:04 04:04 WBC 6.6 Hgb 14.5 Hct 42.5 Sodium 135 L Potassium 3.6 Chloride 97.8 L Objective Vital Signs - 12hr 03/07/17 03/07/17 03/07/17 01:42 04:43 05:54 Temperature 98.8 F Pulse Rate 103 H 98 H 98 H Respiratory 20 Rate Blood Pressure 159/106 163/108 Blood Pressure 163/108 [Left] O2 Sat by Pulse 98 Oximetry 03/07/17 03/07/17 03/07/17 07:53 10:00 12:45 Temperature 98.4 F Pulse Rate 90 126 H 87 Respiratory 18 18 Rate Blood Pressure Blood Pressure 148/102 148/103 [Left] O2 Sat by Pulse 100 95 Oximetry - Labs 03/07/17 04:04 03/07/17 04:04 Diabetes panel 03/07/17 Range/Units 04:04 Sodium 135 L (137-145) mmol/L Potassium 3.6 (3.6-5.0) mmol/L Chloride 97.8 L (98-107) mmol/L Carbon Dioxide 22 (22-30) mmol/L BUN 13 (9-20) mg/dL Creatinine 0.7 L (0.8-1.5) mg/dL Glucose 81 (75-100) mg/dL Calcium 8.8 (8.4-10.2) mg/dL Calcium panel 03/07/17 Range/Units 04:04 Calcium 8.8 (8.4-10.2) mg/dL Pituitary panel 03/07/17 Range/Units 04:04 Sodium 135 L (137-145) mmol/L Potassium 3.6 (3.6-5.0) mmol/L Chloride 97.8 L (98-107) mmol/L Carbon Dioxide 22 (22-30) mmol/L BUN 13 (9-20) mg/dL Creatinine 0.7 L (0.8-1.5) mg/dL Glucose 81 (75-100) mg/dL Calcium 8.8 (8.4-10.2) mg/dL Adrenal panel 03/07/17 Range/Units 04:04 Sodium 135 L (137-145) mmol/L Potassium 3.6 (3.6-5.0) mmol/L Chloride 97.8 L (98-107) mmol/L Carbon Dioxide 22 (22-30) mmol/L BUN 13 (9-20) mg/dL Creatinine 0.7 L (0.8-1.5) mg/dL Glucose 81 (75-100) mg/dL Calcium 8.8 (8.4-10.2) mg/dL
[2017-03-08] MEDS: LOPRESSOR IV SCH ×5 (00:37→23:09)
[2017-03-08] MEDS: MINERAL OIL FEEDTUBE SCH ×6 (01:37→23:07)
[2017-03-08] MEDS: NACL 0.45% 1000 ML 1,000 ML IV SCH (04:11)
[2017-03-08 05:22] LABS: Hematocrit 44.7 % (35.5-45.6); Hemoglobin 14.9 gm/dl (11.8-15.2); Mean Corpuscular HGB Conc 33 % (32-34); Mean Corpuscular Hemoglobin 34 pg (28-32); Mean Corpuscular Volume 102 fl (84-94); Platelet Count 152 K/mm3 (140-440); Red Blood Count 4.37 M/mm3 (3.65-5.03); Red Cell Distribution Width 13.9 % (13.2-15.2)
[2017-03-08 05:44] LABS: Anion Gap 17 mmol/L; BUN/Creatinine Ratio 24; Blood Urea Nitrogen 17 mg/dL (9-20); Carbon Dioxide 24 mmol/L (22-30); Chloride 99.7 mmol/L (98-107); Glucose 84 mg/dL (75-100); Potassium 3.6 mmol/L (3.6-5.0); Sodium 137 mmol/L (137-145)
[2017-03-08] MEDS: FLAGYL 500 MG/100 ML 500 MG/100 ML BAG IV SCH ×3 (05:47→23:00)
--- NOTE | 2017-03-08 09:20 | Progress Note ---
Assessment and Plan Pt feeling well. currently downstairs having SBFT test. will await results Selected Entries 03/08/17 07:58 Temperature 98.7 F Pulse Rate 90 Respiratory 20 Rate Blood Pressure 161/93 [Left] Laboratory Tests 03/08/17 04:24 WBC 8.0 Hgb 14.9 Hct 44.7 Objective Vital Signs - 12hr 03/07/17 03/08/17 03/08/17 22:00 00:37 05:31 Temperature 97.6 F Pulse Rate 63 97 H Pulse Rate [ 107 H From Monitor] Respiratory 20 Rate Blood Pressure 162/100 Blood Pressure 161/99 [Left] O2 Sat by Pulse 95 Oximetry 03/08/17 03/08/17 05:39 07:58 Temperature 98.7 F Pulse Rate 97 H 90 Pulse Rate [ From Monitor] Respiratory 20 Rate Blood Pressure 161/99 Blood Pressure 161/93 [Left] O2 Sat by Pulse 98 Oximetry - Labs 03/08/17 04:24 03/08/17 04:24 Diabetes panel 03/08/17 Range/Units 04:24 Carbon Dioxide 24 (22-30) mmol/L BUN 17 (9-20) mg/dL Creatinine 0.7 L (0.8-1.5) mg/dL Glucose 84 (75-100) mg/dL Calcium 9.0 (8.4-10.2) mg/dL Calcium panel 03/08/17 Range/Units 04:24 Calcium 9.0 (8.4-10.2) mg/dL Pituitary panel 03/08/17 Range/Units 04:24 Carbon Dioxide 24 (22-30) mmol/L BUN 17 (9-20) mg/dL Creatinine 0.7 L (0.8-1.5) mg/dL Glucose 84 (75-100) mg/dL Calcium 9.0 (8.4-10.2) mg/dL Adrenal panel 03/08/17 Range/Units 04:24 Carbon Dioxide 24 (22-30) mmol/L BUN 17 (9-20) mg/dL Creatinine 0.7 L (0.8-1.5) mg/dL Glucose 84 (75-100) mg/dL Calcium 9.0 (8.4-10.2) mg/dL
--- NOTE | 2017-03-08 12:47 | Progress Note ---
Assessment and Plan Assessment and plan: Patient is 81-year-old man with history of A. fib on warfarin, hypertension, CHF , tobacco dependency, dyslipidemia and coronary artery disease who presented to the emergency Department at [facility] (first visit here-main doctors are at [facility]) with nausea, vomiting and abdominal pains. 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 -Small bowel obstruction with peritonitis: Discussed with general surgeon Dr. Gong, NG tube to be repositioned, careful with suction due to therapeutic INR , nothing by mouth, IV pain control, empiric IV antibiotics -Malignant hypertension: prn IV labetalol -Atrial fibrillation/aflutter with RVR on warfarin with therapeutic INR: reversed with 2units FFB and 5mg iv vitamin k on 03/04/17 for [address] surgery per Dr. Gong, we'll consult cardiology to manage, careful with history of heart failure, possibly will need IV heparin, consulted [facility] because they also go to [facility]; therefore, they can review his [facility] records and they are on-call today. 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 Gong: Pt feeling better. states had small BM. some blood tinged drainage noted in NG, Abd - less distended, non tender, stable - slightly improving, cardiology & vasc surg eval noted, will start mineral oil thru NG x 48 hrs, f/u abd series in am. per Cardiology, Dr. 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 Initiate IV heparin if no surgery is planned in the near term Initiate rate control with IV lopressor as patient is NPO May proceed with abdominal surgery cardiac mcmanus - moderate perioperative cardiac risk" Unable to get bed in ICU yesterday, pt doing better today, cancelled 03/06/2017: Patient felt much better, less abdominal distention without pains now. Abdominal series with chest x-ray 3 views reported as significant improvement with near complete resolution of small bowel dilatation, no small bowel obstruction. NG tube in the stomach.. Chest x-ray dementia a cardiomegaly without CHF. Patient responding to nonsurgical intervention. New issue today low grade temperature 100.2 Fahrenheit, ordered pr Tylenol and blood cultures, patient already on empiric IV Levaquin, will continue 03/07/17: He is doing better. Still NGT to LIS. Imaging reviewed. 03/08/17: SBFT today History Interval history: Patient was seen and examined. Follow-up on current diagnosis/abdominal pain nausea vomiting which has improved. Overnight uneventful. Patient denies any chest pain, shortness breath, or severe headaches. Imaging, nursing note, chart , labs and old chart reviewed. Discussed with patient. Patient has NG tube Hospitalist Physical - Physical exam Narrative exam: GEN: Ill-appearing man, BMI 35.4, no respiratory distress awake alert oriented 3 HEENT: NCAT, EOMI, PERRL, OP Clear, NG tube in place NECK: supple, no adenopathy, no thyromegaly, no JVD CVS/HEART: Irregular regular NORMAL S1S2, NO JVD, pulses present bilaterally CHEST/LUNGS: Bibasilar crackles Symmetrical chest expansion, good air entry bilaterally GI/Abdomen: less distension, diffuse tenderness resolving, good bowel sounds, no guarding, no rebound /Bladder: no suprapubic tenderness, no CVA or paraspinal tenderness EXT/Skin: no c/c/e, no obvious rash MSK: FROM x 4 Neuro: CN 2-12 grossly intact except facial asymmetry, no new focal deficits Psych: calm - Constitutional Vitals: Temp Pulse Resp BP Pulse Ox 98.7 F 90 20 161/93 98 03/08/17 07:58 03/08/17 07:58 03/08/17 07:58 03/08/17 07:58 03/08/17 07:58 General appearance: Present: no acute distress Results - Labs CBC & Chem 7: 03/08/17 04:24 03/08/17 04:24 Labs: Laboratory Last Values WBC 8.0 K/mm3 (4.5-11.0) 03/08/17 04:24 RBC 4.37 M/mm3 (3.65-5.03) 03/08/17 04:24 Hgb 14.9 gm/dl (11.8-15.2) 03/08/17 04:24 Hct 44.7 % (35.5-45.6) 03/08/17 04:24 MCV 102 fl (84-94) H 03/08/17 04:24 MCH 34 pg (28-32) H 03/08/17 04:24 MCHC 33 % (32-34) 03/08/17 04:24 RDW 13.9 % (13.2-15.2) 03/08/17 04:24 Plt Count 152 K/mm3 (140-440) 03/08/17 04:24 Lymph % (Auto) 15.8 % (13.4-35.0) 03/04/17 04:22 [place] % (Auto) Ion Exchange Operator 03/05/17 05:12 Eos % (Auto) 0.3 % (0.0-4.3) 03/04/17 04:22 Baso % (Auto) 0.4 % (0.0-1.8) 03/04/17 04:22 Lymph # 0.9 K/mm3 (1.2-5.4) L 03/04/17 04:22 [place] # 0.3 K/mm3 (0.0-0.8) 03/04/17 04:22 Eos # 0.0 K/mm3 (0.0-0.4) 03/04/17 04:22 Baso # 0.0 K/mm3 (0.0-0.1) 03/04/17 04:22 Add Manual Diff Complete 03/05/17 05:12 Total Counted 100 03/05/17 05:12 Seg Neutrophils % 78.2 % (40.0-70.0) H 03/04/17 04:22 Seg Neuts % (Manual) 34.0 % (40.0-70.0) L 03/05/17 05:12 Band Neutrophils % 6.0 % 03/05/17 05:12 Lymphocytes % (Manual) 37.0 % (13.4-35.0) H 03/05/17 05:12 Reactive Lymphs % (Man) 0 % 03/05/17 05:12 Monocytes % (Manual) 20.0 % (0.0-7.3) H 03/05/17 05:12 Eosinophils % (Manual) 2.0 % (0.0-4.3) 03/05/17 05:12 Basophils % (Manual) 1.0 % (0.0-1.8) 03/05/17 05:12 Metamyelocytes % 0 % 03/05/17 05:12 Myelocytes % 0 % 03/05/17 05:12 Promyelocytes % 0 % 03/05/17 05:12 Blast Cells % 0 % 03/05/17 05:12 Nucleated RBC % Not Reportable 03/05/17 05:12 Seg Neutrophils # 4.5 K/mm3 (1.8-7.7) 03/04/17 04:22 Seg Neutrophils # Man 1.0 K/mm3 (1.8-7.7) L 03/05/17 05:12 Band Neutrophils # 0.2 K/mm3 03/05/17 05:12 Lymphocytes # (Manual) 1.0 K/mm3 (1.2-5.4) L 03/05/17 05:12 Abs React Lymphs (Man) 0.0 K/mm3 03/05/17 05:12 Monocytes # (Manual) 0.6 K/mm3 (0.0-0.8) 03/05/17 05:12 Eosinophils # (Manual) 0.1 K/mm3 (0.0-0.4) 03/05/17 05:12 Basophils # (Manual) 0.0 K/mm3 (0.0-0.1) 03/05/17 05:12 Metamyelocytes # 0.0 K/mm3 03/05/17 05:12 Myelocytes # 0.0 K/mm3 03/05/17 05:12 Promyelocytes # 0.0 K/mm3 03/05/17 05:12 Blast Cells # 0.0 K/mm3 03/05/17 05:12 WBC Morphology Not Reportable 03/05/17 05:12 Hypersegmented Neuts Not Reportable 03/05/17 05:12 Hyposegmented Neuts Not Reportable 03/05/17 05:12 Hypogranular Neuts Not Reportable 03/05/17 05:12 Smudge Cells Not Reportable 03/05/17 05:12 Toxic Granulation Not Reportable 03/05/17 05:12 Toxic Vacuolation Not Reportable 03/05/17 05:12 Dohle Bodies Not Reportable 03/05/17 05:12 Pelger-Huet Anomaly Not Reportable 03/05/17 05:12 Jack Rods Not Reportable 03/05/17 05:12 Platelet Estimate Consistent w auto 03/05/17 05:12 Clumped Platelets Not Reportable 03/05/17 05:12 Plt Clumps, EDTA Not Reportable 03/05/17 05:12 Large Platelets Not Reportable 03/05/17 05:12 Giant Platelets Not Reportable 03/05/17 05:12 Platelet Satelliting Not Reportable 03/05/17 05:12 Plt Morphology Comment Not Reportable 03/05/17 05:12 RBC Morphology Normal 03/05/17 05:12 Dimorphic RBCs Not Reportable 03/05/17 05:12 Polychromasia Not Reportable 03/05/17 05:12 Hypochromasia Not Reportable 03/05/17 05:12 Poikilocytosis Not Reportable 03/05/17 05:12 Anisocytosis Not Reportable 03/05/17 05:12 Microcytosis Not Reportable 03/05/17 05:12 Macrocytosis Not Reportable 03/05/17 05:12 Spherocytes Not Reportable 03/05/17 05:12 Pappenheimer Bodies Not Reportable 03/05/17 05:12 Sickle Cells Not Reportable 03/05/17 05:12 Target Cells Not Reportable 03/05/17 05:12 Tear Drop Cells Not Reportable 03/05/17 05:12 Ovalocytes Not Reportable 03/05/17 05:12 Helmet Cells Not Reportable 03/05/17 05:12 [place] Bodies Not Reportable 03/05/17 05:12 [place] Rings Not Reportable 03/05/17 05:12 [place]ail[place] Cells Not Reportable 03/05/17 05:12 Bite Cells Not Reportable 03/05/17 05:12 Crenated Cell Not Reportable 03/05/17 05:12 Elliptocytes Not Reportable 03/05/17 05:12 Acanthocytes (Spur) Not Reportable 03/05/17 05:12 Rouleaux Not Reportable 03/05/17 05:12 Hemoglobin C Crystals Not Reportable 03/05/17 05:12 Schistocytes Not Reportable 03/05/17 05:12 Malaria parasites Not Reportable 03/05/17 05:12 Asif Bodies Not Reportable 03/05/17 05:12 Hem Pathologist Commnt No 03/05/17 05:12 PT 15.7 Sec. (12.2-14.9) H 03/06/17 06:23 INR 1.19 (0.87-1.13) H 03/06/17 06:23 APTT 30.6 Sec. (24.2-36.6) 03/06/17 06:23 Sodium 135 mmol/L (137-145) L 03/07/17 04:04 Potassium 3.6 mmol/L (3.6-5.0) 03/07/17 04:04 Chloride 97.8 mmol/L (98-107) L 03/07/17 04:04 Carbon Dioxide 24 mmol/L (22-30) 03/08/17 04:24 Anion Gap 19 mmol/L 03/07/17 04:04 BUN 17 mg/dL (9-20) 03/08/17 04:24 Creatinine 0.7 mg/dL (0.8-1.5) L 03/08/17 04:24 Estimated GFR > 60 ml/min 03/08/17 04:24 BUN/Creatinine Ratio 24 % 03/08/17 04:24 Glucose 84 mg/dL (75-100) 03/08/17 04:24 Lactic Acid 2.00 mmol/L (0.7-2.0) 03/04/17 10:38 Calcium 9.0 mg/dL (8.4-10.2) 03/08/17 04:24 Magnesium 1.80 mg/dL (1.7-2.3) 03/06/17 06:23 Total Bilirubin 1.40 mg/dL (0.1-1.2) H 03/05/17 05:12 Direct Bilirubin < 0.2 mg/dL (0-0.2) 03/03/17 16:11 Indirect Bilirubin 0.8 mg/dL 03/03/17 16:11 AST 19 units/L (5-40) 03/05/17 05:12 ALT 11 units/L (7-56) 03/05/17 05:12 Alkaline Phosphatase 58 units/L (35-129) 03/05/17 05:12 Total Protein 6.7 g/dL (6.3-8.2) 03/05/17 05:12 Albumin 3.6 g/dL (3.9-5) L 03/05/17 05:12 Albumin/Globulin Ratio 1.2 % 03/05/17 05:12 Amylase 49 units/L (27-131) 03/05/17 05:12 Lipase 16 units/L (13-60) 03/03/17 16:11 Urine Color Karl[place] (Yellow) 03/04/17 12:08 Urine Turbidity Clear (Clear) 03/04/17 12:08 Urine pH 5.0 (5.0-7.0) 03/04/17 12:08 Ur Specific [place] 1.056 (1.003-1.030) H 03/04/17 12:08 Urine Protein 100 mg/dl mg/dL (Negative) 03/04/17 12:08 Urine Glucose (UA) Neg mg/dL (Negative) 03/04/17 12:08 Urine Ketones 20 mg/dL (Negative) 03/04/17 12:08 Urine Blood Mod (Negative) 03/04/17 12:08 Urine Nitrite Neg (Negative) 03/04/17 12:08 Urine Bilirubin Neg (Negative) 03/04/17 12:08 Urine Urobilinogen < 2.0 mg/dL (<2.0) 03/04/17 12:08 Ur Leukocyte Esterase Neg (Negative) 03/04/17 12:08 Urine WBC (Auto) 4.0 /HPF (0.0-6.0) 03/04/17 12:08 Urine RBC (Auto) 19.0 /HPF (0.0-6.0) 03/04/17 12:08 U Epithel Cells (Auto) 1.0 /HPF (0-13.0) 03/04/17 12:08 Urine Mucus 3+ /HPF 03/04/17 12:08 Blood Type O POSITIVE 03/04/17 14:21
[2017-03-08] MEDS: HEPARIN SUB-Q SCH ×2 (13:25→22:00)
[2017-03-08] MEDS: LEVAQUIN 500MG/100ML 500 MG/100 ML BAG IV SCH (13:26)
[2017-03-08] MEDS: PEPCID IV SCH ×2 (13:27→23:08)
--- NOTE | 2017-03-08 14:56 | Fluoroscopy Report ---
SMALL BOWEL SERIES History: Small bowel obstruction Findings: [employer] film of the abdomen demonstrates multiple moderately dilated loops of small bowel throughout the abdomen. Following the ingestion of thin barium, there is moderate delay in transit of the contrast agent through the small bowel loops. Time to the ileocecal valve is approximately 4 hours. There are multiple moderately dilated loops of jejunum throughout the abdomen which measure up to 5-6 cm in diameter. Terminal ileal loops are normal caliber. The colon is normal caliber. The appendix is not clearly identified. Impression: Partial small bowel obstruction.
--- NOTE | 2017-03-08 15:15 | Progress Note ---
Assessment and Plan SBFT study reviewed with Dr. Rodrigues. Dilated jejunum but contrast eventually flows thru to colon in about 3 hrs. partial sbo continue mineral oil and ng suction thru today. will d/c ng in am and monitor clinically x 24 hrs prior to attempting cl liq Objective Vital Signs - 12hr 03/08/17 03/08/17 03/08/17 05:31 05:39 07:58 Temperature 97.6 F 98.7 F Pulse Rate 97 H 97 H 90 Respiratory 20 20 Rate Blood Pressure 161/99 Blood Pressure 161/99 161/93 [Left] O2 Sat by Pulse 95 98 Oximetry 03/08/17 03/08/17 14:00 14:47 Temperature 98.8 F Pulse Rate 96 H 99 H Respiratory 18 Rate Blood Pressure 164/99 Blood Pressure 164/95 [Left] O2 Sat by Pulse 18 L Oximetry - Labs 03/08/17 04:24 03/08/17 04:24 Diabetes panel 03/08/17 Range/Units 04:24 Carbon Dioxide 24 (22-30) mmol/L BUN 17 (9-20) mg/dL Creatinine 0.7 L (0.8-1.5) mg/dL Glucose 84 (75-100) mg/dL Calcium 9.0 (8.4-10.2) mg/dL Calcium panel 03/08/17 Range/Units 04:24 Calcium 9.0 (8.4-10.2) mg/dL Pituitary panel 03/08/17 Range/Units 04:24 Carbon Dioxide 24 (22-30) mmol/L BUN 17 (9-20) mg/dL Creatinine 0.7 L (0.8-1.5) mg/dL Glucose 84 (75-100) mg/dL Calcium 9.0 (8.4-10.2) mg/dL Adrenal panel 03/08/17 Range/Units 04:24 Carbon Dioxide 24 (22-30) mmol/L BUN 17 (9-20) mg/dL Creatinine 0.7 L (0.8-1.5) mg/dL Glucose 84 (75-100) mg/dL Calcium 9.0 (8.4-10.2) mg/dL
[2017-03-09] MEDS: MINERAL OIL FEEDTUBE SCH ×4 (02:00→13:37)
[2017-03-09 04:55] LABS: Hematocrit 40.8 % (35.5-45.6); Hemoglobin 14.5 gm/dl (11.8-15.2); Mean Corpuscular HGB Conc 36 % (32-34); Mean Corpuscular Hemoglobin 36 pg (28-32); Mean Corpuscular Volume 100 fl (84-94); Platelet Count 145 K/mm3 (140-440); Red Blood Count 4.08 M/mm3 (3.65-5.03); White Blood Count 7.4 K/mm3 (4.5-11.0)
[2017-03-09 05:16] LABS: BUN/Creatinine Ratio 24; Blood Urea Nitrogen 17 mg/dL (9-20); Calcium 8.8 mg/dL (8.4-10.2); Carbon Dioxide 24 mmol/L (22-30); Chloride 99.3 mmol/L (98-107); Glucose 79 mg/dL (75-100); Sodium 139 mmol/L (137-145)
[2017-03-09 06:32] LABS: Anion Gap 20 mmol/L; Potassium 4.2 mmol/L (3.6-5.0)
[2017-03-09] MEDS: FLAGYL 500 MG/100 ML 500 MG/100 ML BAG IV SCH ×3 (07:14→22:46)
[2017-03-09] MEDS: LOPRESSOR IV SCH ×4 (07:58→22:47)
--- NOTE | 2017-03-09 09:13 | Progress Note ---
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 Continue IV lopressor for rate control of chronic Afib. Subjective Date of service: 03/09/17 Principal diagnosis: small bowel obstruction Interval history: Patient has no complaints. Remains nothing by mouth. Objective Vital Signs Temp Pulse Resp BP BP Pulse Ox 03/09/17 08:00 97.7 F 96 H 20 146/98 03/09/17 07:58 100 H 146/98 03/09/17 03:00 98.1 F 99 H 20 138/99 94 03/08/17 23:09 91 H 152/104 03/08/17 20:00 97.9 F 104 H 20 149/114 94 03/08/17 18:38 112 H 139/103 03/08/17 14:47 99 H 164/99 03/08/17 14:00 98.8 F 96 H 18 164/95 18 L - Physical Examination General: No Apparent Distress HEENT: Positive: PERRL Cardiac: Positive: irregularly irregular Lungs: Positive: Decreased Breath Sounds Neuro: Positive: Grossly Intact - Labs and Meds CBC 03/09/17 Range/Units 04:19 WBC 7.4 (4.5-11.0) K/mm3 RBC 4.08 (3.65-5.03) M/mm3 Hgb 14.5 (11.8-15.2) gm/dl Hct 40.8 (35.5-45.6) % Plt Count 145 (140-440) K/mm3 Comprehensive Metabolic Panel 03/09/17 Range/Units 04:19 Sodium 139 (137-145) mmol/L Potassium 4.2 (3.6-5.0) mmol/L Chloride 99.3 (98-107) mmol/L Carbon Dioxide 24 (22-30) mmol/L BUN 17 (9-20) mg/dL Creatinine 0.7 L (0.8-1.5) mg/dL Glucose 79 (75-100) mg/dL Calcium 8.8 (8.4-10.2) mg/dL
[2017-03-09] MEDS: LEVAQUIN 500MG/100ML 500 MG/100 ML BAG IV SCH (09:27)
[2017-03-09] MEDS: HEPARIN SUB-Q SCH (09:40)
[2017-03-09] MEDS: PEPCID IV SCH ×2 (09:42→22:47)
--- NOTE | 2017-03-09 12:13 | Progress Note ---
Assessment and Plan Assessment and plan: Small bowel obstruction with peritonitis. Continue prior surgery. Continue NPO , IV pain control and empiric IV antibiotics. 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 Atrial fibrillation. Patient currently on Coumadin, digoxin and diltiazem as an outpatient. No ischemia by MPI in 2007. EF 50-55% by GUDELIA on 12/2015. 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 Outpatient follow-up or vascular surgery. History Interval history: No new issues overnight. Hospitalist Physical - Constitutional Vitals: Temp Pulse Resp BP Pulse Ox 97.7 F 89 20 107/54 94 03/09/17 08:00 03/09/17 11:26 03/09/17 08:00 03/09/17 11:26 03/09/17 03:00 General appearance: Present: no acute distress - EENT Eyes: Present: PERRL, EOM intact ENT: hearing intact, clear oral mucosa, dentition normal - Neck Neck: Present: supple, normal ROM - Respiratory Respiratory effort: normal Respiratory: bilateral: CTA - Cardiovascular Rhythm: regular Heart Sounds: Present: S1 & S2. Absent: gallop, rub - Extremities Extremities: no ischemia, No edema, Full ROM - Abdominal General gastrointestinal: soft, tender, non-distended, hypoactive bowel sounds - Integumentary Integumentary: Present: clear, warm, dry - Neurologic Neurologic: CNII-XII intact, moves all extremities Results - Labs CBC & Chem 7: 03/09/17 04:19 03/09/17 04:19 Labs: Laboratory Last Values WBC 7.4 K/mm3 (4.5-11.0) 03/09/17 04:19 RBC 4.08 M/mm3 (3.65-5.03) 03/09/17 04:19 Hgb 14.5 gm/dl (11.8-15.2) 03/09/17 04:19 Hct 40.8 % (35.5-45.6) 03/09/17 04:19 MCV 100 fl (84-94) H 03/09/17 04:19 MCH 36 pg (28-32) H 03/09/17 04:19 MCHC 36 % (32-34) H 03/09/17 04:19 RDW 14.0 % (13.2-15.2) 03/09/17 04:19 Plt Count 145 K/mm3 (140-440) 03/09/17 04:19 Lymph % (Auto) 15.8 % (13.4-35.0) 03/04/17 04:22 [place] % (Auto) Polysomnographer 03/05/17 05:12 Eos % (Auto) 0.3 % (0.0-4.3) 03/04/17 04:22 Baso % (Auto) 0.4 % (0.0-1.8) 03/04/17 04:22 Lymph # 0.9 K/mm3 (1.2-5.4) L 03/04/17 04:22 [place] # 0.3 K/mm3 (0.0-0.8) 03/04/17 04:22 Eos # 0.0 K/mm3 (0.0-0.4) 03/04/17 04:22 Baso # 0.0 K/mm3 (0.0-0.1) 03/04/17 04:22 Add Manual Diff Complete 03/05/17 05:12 Total Counted 100 03/05/17 05:12 Seg Neutrophils % 78.2 % (40.0-70.0) H 03/04/17 04:22 Seg Neuts % (Manual) 34.0 % (40.0-70.0) L 03/05/17 05:12 Band Neutrophils % 6.0 % 03/05/17 05:12 Lymphocytes % (Manual) 37.0 % (13.4-35.0) H 03/05/17 05:12 Reactive Lymphs % (Man) 0 % 03/05/17 05:12 Monocytes % (Manual) 20.0 % (0.0-7.3) H 03/05/17 05:12 Eosinophils % (Manual) 2.0 % (0.0-4.3) 03/05/17 05:12 Basophils % (Manual) 1.0 % (0.0-1.8) 03/05/17 05:12 Metamyelocytes % 0 % 03/05/17 05:12 Myelocytes % 0 % 03/05/17 05:12 Promyelocytes % 0 % 03/05/17 05:12 Blast Cells % 0 % 03/05/17 05:12 Nucleated RBC % Not Reportable 03/05/17 05:12 Seg Neutrophils # 4.5 K/mm3 (1.8-7.7) 03/04/17 04:22 Seg Neutrophils # Man 1.0 K/mm3 (1.8-7.7) L 03/05/17 05:12 Band Neutrophils # 0.2 K/mm3 03/05/17 05:12 Lymphocytes # (Manual) 1.0 K/mm3 (1.2-5.4) L 03/05/17 05:12 Abs React Lymphs (Man) 0.0 K/mm3 03/05/17 05:12 Monocytes # (Manual) 0.6 K/mm3 (0.0-0.8) 03/05/17 05:12 Eosinophils # (Manual) 0.1 K/mm3 (0.0-0.4) 03/05/17 05:12 Basophils # (Manual) 0.0 K/mm3 (0.0-0.1) 03/05/17 05:12 Metamyelocytes # 0.0 K/mm3 03/05/17 05:12 Myelocytes # 0.0 K/mm3 03/05/17 05:12 Promyelocytes # 0.0 K/mm3 03/05/17 05:12 Blast Cells # 0.0 K/mm3 03/05/17 05:12 WBC Morphology Not Reportable 03/05/17 05:12 Hypersegmented Neuts Not Reportable 03/05/17 05:12 Hyposegmented Neuts Not Reportable 03/05/17 05:12 Hypogranular Neuts Not Reportable 03/05/17 05:12 Smudge Cells Not Reportable 03/05/17 05:12 Toxic Granulation Not Reportable 03/05/17 05:12 Toxic Vacuolation Not Reportable 03/05/17 05:12 Dohle Bodies Not Reportable 03/05/17 05:12 Pelger-Huet Anomaly Not Reportable 03/05/17 05:12 Jack Rods Not Reportable 03/05/17 05:12 Platelet Estimate Consistent w auto 03/05/17 05:12 Clumped Platelets Not Reportable 03/05/17 05:12 Plt Clumps, EDTA Not Reportable 03/05/17 05:12 Large Platelets Not Reportable 03/05/17 05:12 Giant Platelets Not Reportable 03/05/17 05:12 Platelet Satelliting Not Reportable 03/05/17 05:12 Plt Morphology Comment Not Reportable 03/05/17 05:12 RBC Morphology Normal 03/05/17 05:12 Dimorphic RBCs Not Reportable 03/05/17 05:12 Polychromasia Not Reportable 03/05/17 05:12 Hypochromasia Not Reportable 03/05/17 05:12 Poikilocytosis Not Reportable 03/05/17 05:12 Anisocytosis Not Reportable 03/05/17 05:12 Microcytosis Not Reportable 03/05/17 05:12 Macrocytosis Not Reportable 03/05/17 05:12 Spherocytes Not Reportable 03/05/17 05:12 Pappenheimer Bodies Not Reportable 03/05/17 05:12 Sickle Cells Not Reportable 03/05/17 05:12 Target Cells Not Reportable 03/05/17 05:12 Tear Drop Cells Not Reportable 03/05/17 05:12 Ovalocytes Not Reportable 03/05/17 05:12 Helmet Cells Not Reportable 03/05/17 05:12 [place] Bodies Not Reportable 03/05/17 05:12 [place] Rings Not Reportable 03/05/17 05:12 [place]aila Cells Not Reportable 03/05/17 05:12 Bite Cells Not Reportable 03/05/17 05:12 Crenated Cell Not Reportable 03/05/17 05:12 Elliptocytes Not Reportable 03/05/17 05:12 Acanthocytes (Spur) Not Reportable 03/05/17 05:12 Rouleaux Not Reportable 03/05/17 05:12 Hemoglobin C Crystals Not Reportable 03/05/17 05:12 Schistocytes Not Reportable 03/05/17 05:12 Malaria parasites Not Reportable 03/05/17 05:12 Asif Bodies Not Reportable 03/05/17 05:12 Hem Pathologist Commnt No 03/05/17 05:12 PT 15.7 Sec. (12.2-14.9) H 03/06/17 06:23 INR 1.19 (0.87-1.13) H 03/06/17 06:23 APTT 30.6 Sec. (24.2-36.6) 03/06/17 06:23 Sodium 139 mmol/L (137-145) 03/09/17 04:19 Potassium 4.2 mmol/L (3.6-5.0) 03/09/17 04:19 Chloride 99.3 mmol/L (98-107) 03/09/17 04:19 Carbon Dioxide 24 mmol/L (22-30) 03/09/17 04:19 Anion Gap 20 mmol/L 03/09/17 04:19 BUN 17 mg/dL (9-20) 03/09/17 04:19 Creatinine 0.7 mg/dL (0.8-1.5) L 03/09/17 04:19 Estimated GFR > 60 ml/min 03/09/17 04:19 BUN/Creatinine Ratio 24 % 03/09/17 04:19 Glucose 79 mg/dL (75-100) 03/09/17 04:19 Lactic Acid 2.00 mmol/L (0.7-2.0) 03/04/17 10:38 Calcium 8.8 mg/dL (8.4-10.2) 03/09/17 04:19 Magnesium 1.80 mg/dL (1.7-2.3) 03/06/17 06:23 Total Bilirubin 1.40 mg/dL (0.1-1.2) H 03/05/17 05:12 Direct Bilirubin < 0.2 mg/dL (0-0.2) 03/03/17 16:11 Indirect Bilirubin 0.8 mg/dL 03/03/17 16:11 AST 19 units/L (5-40) 03/05/17 05:12 ALT 11 units/L (7-56) 03/05/17 05:12 Alkaline Phosphatase 58 units/L (35-129) 03/05/17 05:12 Total Protein 6.7 g/dL (6.3-8.2) 03/05/17 05:12 Albumin 3.6 g/dL (3.9-5) L 03/05/17 05:12 Albumin/Globulin Ratio 1.2 % 03/05/17 05:12 Amylase 49 units/L (27-131) 03/05/17 05:12 Lipase 16 units/L (13-60) 03/03/17 16:11 Urine Color [place] (Yellow) 03/04/17 12:08 Urine Turbidity Clear (Clear) 03/04/17 12:08 Urine pH 5.0 (5.0-7.0) 03/04/17 12:08 Ur Specific [place] 1.056 (1.003-1.030) H 03/04/17 12:08 Urine Protein 100 mg/dl mg/dL (Negative) 03/04/17 12:08 Urine Glucose (UA) Neg mg/dL (Negative) 03/04/17 12:08 Urine Ketones 20 mg/dL (Negative) 03/04/17 12:08 Urine Blood Mod (Negative) 03/04/17 12:08 Urine Nitrite Neg (Negative) 03/04/17 12:08 Urine Bilirubin Neg (Negative) 03/04/17 12:08 Urine Urobilinogen < 2.0 mg/dL (<2.0) 03/04/17 12:08 Ur Leukocyte Esterase Neg (Negative) 03/04/17 12:08 Urine WBC (Auto) 4.0 /HPF (0.0-6.0) 03/04/17 12:08 Urine RBC (Auto) 19.0 /HPF (0.0-6.0) 03/04/17 12:08 U Epithel Cells (Auto) 1.0 /HPF (0-13.0) 03/04/17 12:08 Urine Mucus 3+ /HPF 03/04/17 12:08 Blood Type O POSITIVE 03/04/17 14:21
--- NOTE | 2017-03-09 14:02 | Progress Note ---
Assessment and Plan Pt status quo. on ng suction. still mod abd distention. SBFT findings and need to surg discussed with pt at length. also increased surgical risks reviewed. pt understands and agrees to proceed. consent signed. for expl lap, lysis of adhesions, possible bowel resection in am. start TPN as pt will probably continue NPO for another wk pos-op Selected Entries 03/09/17 03/09/17 03/09/17 08:00 10:00 11:26 Temperature 97.7 F Pulse Rate 106 H Blood Pressure 107/54 Laboratory Tests 03/09/17 03/09/17 04:19 04:19 WBC 7.4 Hgb 14.5 Hct 40.8 Sodium 139 Potassium 4.2 Chloride 99.3 Carbon Dioxide 24 BUN 17 Creatinine 0.7 L Objective Vital Signs - 12hr 03/09/17 03/09/17 03/09/17 03:00 07:58 08:00 Temperature 98.1 F 97.7 F Pulse Rate 99 H 100 H 96 H Respiratory 20 20 Rate Blood Pressure 146/98 Blood Pressure 138/99 146/98 [Left] O2 Sat by Pulse 94 Oximetry 03/09/17 03/09/17 10:00 11:26 Temperature Pulse Rate 106 H 89 Respiratory Rate Blood Pressure 107/54 Blood Pressure [Left] O2 Sat by Pulse Oximetry - Labs 03/09/17 04:19 03/09/17 04:19 Diabetes panel 03/09/17 Range/Units 04:19 Sodium 139 (137-145) mmol/L Potassium 4.2 (3.6-5.0) mmol/L Chloride 99.3 (98-107) mmol/L Carbon Dioxide 24 (22-30) mmol/L BUN 17 (9-20) mg/dL Creatinine 0.7 L (0.8-1.5) mg/dL Glucose 79 (75-100) mg/dL Calcium 8.8 (8.4-10.2) mg/dL Calcium panel 03/09/17 Range/Units 04:19 Calcium 8.8 (8.4-10.2) mg/dL Pituitary panel 03/09/17 Range/Units 04:19 Sodium 139 (137-145) mmol/L Potassium 4.2 (3.6-5.0) mmol/L Chloride 99.3 (98-107) mmol/L Carbon Dioxide 24 (22-30) mmol/L BUN 17 (9-20) mg/dL Creatinine 0.7 L (0.8-1.5) mg/dL Glucose 79 (75-100) mg/dL Calcium 8.8 (8.4-10.2) mg/dL Adrenal panel 03/09/17 Range/Units 04:19 Sodium 139 (137-145) mmol/L Potassium 4.2 (3.6-5.0) mmol/L Chloride 99.3 (98-107) mmol/L Carbon Dioxide 24 (22-30) mmol/L BUN 17 (9-20) mg/dL Creatinine 0.7 L (0.8-1.5) mg/dL Glucose 79 (75-100) mg/dL Calcium 8.8 (8.4-10.2) mg/dL
[2017-03-09] MEDS: D5/0.45NS 1,000 ML IV SCH ×2 (14:36→22:46)
[2017-03-09 15:21] LABS: INR 1.47 (0.87-1.13); Partial Thromboplastin Time 32.2 Sec. (24.2-36.6)
--- NOTE | 2017-03-09 16:21 | XRay Report ---
AP chest x-ray. History: PICC line placement. Findings: A left PICC line terminates in the upper SVC, and there is no evidence of pneumothorax. The heart and lungs reveal no acute findings.
[2017-03-10] MEDS: LOPRESSOR IV SCH ×3 (05:12→12:12)
[2017-03-10] MEDS: FLAGYL 500 MG/100 ML 500 MG/100 ML BAG IV SCH ×3 (05:13→22:55)
[2017-03-10 05:26] LABS: Anion Gap 13 mmol/L; BUN/Creatinine Ratio 19; Blood Urea Nitrogen 13 mg/dL (9-20); Calcium 8.6 mg/dL (8.4-10.2); Carbon Dioxide 27 mmol/L (22-30); Glucose 128 mg/dL (75-100); Potassium 3.3 mmol/L (3.6-5.0); Sodium 139 mmol/L (137-145)
[2017-03-10] MEDS: MINERAL OIL FEEDTUBE SCH (06:08)
[2017-03-10] MEDS: D5/0.45NS 1,000 ML IV SCH ×2 (06:31→08:28)
[2017-03-10] MEDS ORDERED: KCL 10MEQ/100ML 10 MEQ/100 ML BAG IV ONE (08:45)
--- NOTE | 2017-03-10 09:00 | Anesthesia Consultation ---
Anesthesia Consult and Med Hx Date of service: 03/10/17 - Airway Anesthetic Teeth Evaluation: Edentulous ROM Head & Neck: Adequate Mental/Hyoid Distance: Adequate Mallampati Class: Class III Intubation Access Assessment: Possibly Difficult - Pre-Operative Health Status ASA Pre-Surgery Classification: ASA3 Proposed Anesthetic Plan: General - Pulmonary Hx Smoking: Yes (30 year/pack, quit 2007 ) Hx Respiratory Symptoms: Yes ( Albuterol ordered PRN) - Cardiovascular System Hx Hypertension: Yes Hx Coronary Artery Disease: Yes (Systolic CHF, EF 50-55% (2016)) Hx Cardia Arrhythmia: Yes (atrial fibrilation, on coumadin at home) Hx Pacemaker: No Hx Internal Defibrillator: No Hx Peripheral Vascular Disease: Yes (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
--- NOTE | 2017-03-10 09:09 | Anesthesia Day of Surgery ---
Anesthesia Day of Surgery - Day of Surgery Patient Examined: Yes Patient H&P Reviewed: Yes Patient is NPO: Yes (NG tube in place) Beta Blockers: Yes Cardiac Clearance: Yes (moderate surgical risk)
[2017-03-10] MEDS: LEVAQUIN 500MG/100ML 500 MG/100 ML BAG IV SCH (09:20)
[2017-03-10] MEDS: PEPCID IV SCH ×2 (09:20→22:41)
[2017-03-10] MEDS ORDERED: LACTATED RINGERS 1,000 ML IV SCH (10:00)
[2017-03-10] MEDS ORDERED: SUBLIMAZE ONE (11:16)
[2017-03-10] MEDS ORDERED: XYLOCAINE MPF 2% ONE (11:16)
[2017-03-10] MEDS ORDERED: ZEMURON IV ONE (11:16)
[2017-03-10] MEDS ORDERED: DIPRIVAN 10 MG/ML IV ONE (11:17)
--- NOTE | 2017-03-10 11:30 | Progress Note ---
Assessment and Plan Assessment and plan: Small bowel obstruction with peritonitis. Continue per surgery. Patient for exploratory laparotomy, lysis of adhesions and possible bowel resection this a.m., continue Levaquin and Flagyl. Atrial fibrillation. Patient currently on Coumadin, digoxin and diltiazem as an outpatient. No ischemia by MPI in 2007. EF 50-55% by GUDELIA on 12/2015. 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 Outpatient follow-up or vascular surgery. Hypokalemia. Replete potassium History Interval history: No new issues overnight. Hospitalist Physical - Constitutional Vitals: Temp Pulse Resp BP Pulse Ox 98 F 102 H 22 155/119 95 03/10/17 11:00 03/10/17 11:00 03/10/17 11:00 03/10/17 11:00 03/10/17 11:00 General appearance: Present: no acute distress - EENT Eyes: Present: PERRL, EOM intact ENT: hearing intact, clear oral mucosa, dentition normal - Neck Neck: Present: supple, normal ROM - Respiratory Respiratory effort: normal Respiratory: bilateral: CTA - Cardiovascular Rhythm: regular Heart Sounds: Present: S1 & S2. Absent: gallop, rub - Extremities Extremities: no ischemia, No edema, Full ROM - Abdominal General gastrointestinal: soft, non-tender, non-distended, normal bowel sounds - Integumentary Integumentary: Present: clear, warm, dry - Neurologic Neurologic: CNII-XII intact, moves all extremities Results - Labs CBC & Chem 7: 03/09/17 04:19 03/10/17 04:20 Labs: Laboratory Last Values WBC 7.4 K/mm3 (4.5-11.0) 03/09/17 04:19 RBC 4.08 M/mm3 (3.65-5.03) 03/09/17 04:19 Hgb 14.5 gm/dl (11.8-15.2) 03/09/17 04:19 Hct 40.8 % (35.5-45.6) 03/09/17 04:19 MCV 100 fl (84-94) H 03/09/17 04:19 MCH 36 pg (28-32) H 03/09/17 04:19 MCHC 36 % (32-34) H 03/09/17 04:19 RDW 14.0 % (13.2-15.2) 03/09/17 04:19 Plt Count 145 K/mm3 (140-440) 03/09/17 04:19 Lymph % (Auto) 15.8 % (13.4-35.0) 03/04/17 04:22 [place] % (Auto) Material Dispatcher 03/05/17 05:12 Eos % (Auto) 0.3 % (0.0-4.3) 03/04/17 04:22 Baso % (Auto) 0.4 % (0.0-1.8) 03/04/17 04:22 Lymph # 0.9 K/mm3 (1.2-5.4) L 03/04/17 04:22 [place] # 0.3 K/mm3 (0.0-0.8) 03/04/17 04:22 Eos # 0.0 K/mm3 (0.0-0.4) 03/04/17 04:22 Baso # 0.0 K/mm3 (0.0-0.1) 03/04/17 04:22 Add Manual Diff Complete 03/05/17 05:12 Total Counted 100 03/05/17 05:12 Seg Neutrophils % 78.2 % (40.0-70.0) H 03/04/17 04:22 Seg Neuts % (Manual) 34.0 % (40.0-70.0) L 03/05/17 05:12 Band Neutrophils % 6.0 % 03/05/17 05:12 Lymphocytes % (Manual) 37.0 % (13.4-35.0) H 03/05/17 05:12 Reactive Lymphs % (Man) 0 % 03/05/17 05:12 Monocytes % (Manual) 20.0 % (0.0-7.3) H 03/05/17 05:12 Eosinophils % (Manual) 2.0 % (0.0-4.3) 03/05/17 05:12 Basophils % (Manual) 1.0 % (0.0-1.8) 03/05/17 05:12 Metamyelocytes % 0 % 03/05/17 05:12 Myelocytes % 0 % 03/05/17 05:12 Promyelocytes % 0 % 03/05/17 05:12 Blast Cells % 0 % 03/05/17 05:12 Nucleated RBC % Not Reportable 03/05/17 05:12 Seg Neutrophils # 4.5 K/mm3 (1.8-7.7) 03/04/17 04:22 Seg Neutrophils # Man 1.0 K/mm3 (1.8-7.7) L 03/05/17 05:12 Band Neutrophils # 0.2 K/mm3 03/05/17 05:12 Lymphocytes # (Manual) 1.0 K/mm3 (1.2-5.4) L 03/05/17 05:12 Abs React Lymphs (Man) 0.0 K/mm3 03/05/17 05:12 Monocytes # (Manual) 0.6 K/mm3 (0.0-0.8) 03/05/17 05:12 Eosinophils # (Manual) 0.1 K/mm3 (0.0-0.4) 03/05/17 05:12 Basophils # (Manual) 0.0 K/mm3 (0.0-0.1) 03/05/17 05:12 Metamyelocytes # 0.0 K/mm3 03/05/17 05:12 Myelocytes # 0.0 K/mm3 03/05/17 05:12 Promyelocytes # 0.0 K/mm3 03/05/17 05:12 Blast Cells # 0.0 K/mm3 03/05/17 05:12 WBC Morphology Not Reportable 03/05/17 05:12 Hypersegmented Neuts Not Reportable 03/05/17 05:12 Hyposegmented Neuts Not Reportable 03/05/17 05:12 Hypogranular Neuts Not Reportable 03/05/17 05:12 Smudge Cells Not Reportable 03/05/17 05:12 Toxic Granulation Not Reportable 03/05/17 05:12 Toxic Vacuolation Not Reportable 03/05/17 05:12 Dohle Bodies Not Reportable 03/05/17 05:12 Pelger-Huet Anomaly Not Reportable 03/05/17 05:12 Jack Rods Not Reportable 03/05/17 05:12 Platelet Estimate Consistent w auto 03/05/17 05:12 Clumped Platelets Not Reportable 03/05/17 05:12 Plt Clumps, EDTA Not Reportable 03/05/17 05:12 Large Platelets Not Reportable 03/05/17 05:12 Giant Platelets Not Reportable 03/05/17 05:12 Platelet Satelliting Not Reportable 03/05/17 05:12 Plt Morphology Comment Not Reportable 03/05/17 05:12 RBC Morphology Normal 03/05/17 05:12 Dimorphic RBCs Not Reportable 03/05/17 05:12 Polychromasia Not Reportable 03/05/17 05:12 Hypochromasia Not Reportable 03/05/17 05:12 Poikilocytosis Not Reportable 03/05/17 05:12 Anisocytosis Not Reportable 03/05/17 05:12 Microcytosis Not Reportable 03/05/17 05:12 Macrocytosis Not Reportable 03/05/17 05:12 Spherocytes Not Reportable 03/05/17 05:12 Pappenheimer Bodies Not Reportable 03/05/17 05:12 Sickle Cells Not Reportable 03/05/17 05:12 Target Cells Not Reportable 03/05/17 05:12 Tear Drop Cells Not Reportable 03/05/17 05:12 Ovalocytes Not Reportable 03/05/17 05:12 Helmet Cells Not Reportable 03/05/17 05:12 [place] Bodies Not Reportable 03/05/17 05:12 [place] Rings Not Reportable 03/05/17 05:12 [place] Cells Not Reportable 03/05/17 05:12 Bite Cells Not Reportable 03/05/17 05:12 Crenated Cell Not Reportable 03/05/17 05:12 Elliptocytes Not Reportable 03/05/17 05:12 Acanthocytes (Spur) Not Reportable 03/05/17 05:12 Rouleaux Not Reportable 03/05/17 05:12 Hemoglobin C Crystals Not Reportable 03/05/17 05:12 Schistocytes Not Reportable 03/05/17 05:12 Malaria parasites Not Reportable 03/05/17 05:12 Asif Bodies Not Reportable 03/05/17 05:12 Hem Pathologist Commnt No 03/05/17 05:12 PT 18.6 Sec. (12.2-14.9) H 03/09/17 14:42 INR 1.47 (0.87-1.13) H 03/09/17 14:42 APTT 32.2 Sec. (24.2-36.6) 03/09/17 14:42 Sodium 139 mmol/L (137-145) 03/10/17 04:20 Potassium 3.3 mmol/L (3.6-5.0) L D 03/10/17 04:20 Chloride 102.0 mmol/L (98-107) 03/10/17 04:20 Carbon Dioxide 27 mmol/L (22-30) 03/10/17 04:20 Anion Gap 13 mmol/L 03/10/17 04:20 BUN 13 mg/dL (9-20) 03/10/17 04:20 Creatinine 0.7 mg/dL (0.8-1.5) L 03/10/17 04:20 Estimated GFR > 60 ml/min 03/10/17 04:20 BUN/Creatinine Ratio 19 % 03/10/17 04:20 Glucose 128 mg/dL (75-100) H 03/10/17 04:20 POC Glucose 98 (70-105) 03/09/17 17:12 Lactic Acid 2.00 mmol/L (0.7-2.0) 03/04/17 10:38 Calcium 8.6 mg/dL (8.4-10.2) 03/10/17 04:20 Phosphorus 2.30 mg/dL (2.5-4.5) L 03/10/17 04:20 Magnesium 1.90 mg/dL (1.7-2.3) 03/10/17 04:20 Total Bilirubin 1.40 mg/dL (0.1-1.2) H 03/05/17 05:12 Direct Bilirubin < 0.2 mg/dL (0-0.2) 03/03/17 16:11 Indirect Bilirubin 0.8 mg/dL 03/03/17 16:11 AST 19 units/L (5-40) 03/05/17 05:12 ALT 11 units/L (7-56) 03/05/17 05:12 Alkaline Phosphatase 58 units/L (35-129) 03/05/17 05:12 Total Protein 6.7 g/dL (6.3-8.2) 03/05/17 05:12 Albumin 3.6 g/dL (3.9-5) L 03/05/17 05:12 Albumin/Globulin Ratio 1.2 % 03/05/17 05:12 Amylase 49 units/L (27-131) 03/05/17 05:12 Lipase 16 units/L (13-60) 03/03/17 16:11 Urine Color Karlene (Yellow) 03/04/17 12:08 Urine Turbidity Clear (Clear) 03/04/17 12:08 Urine pH 5.0 (5.0-7.0) 03/04/17 12:08 Ur Specific [place] 1.056 (1.003-1.030) H 03/04/17 12:08 Urine Protein 100 mg/dl mg/dL (Negative) 03/04/17 12:08 Urine Glucose (UA) Neg mg/dL (Negative) 03/04/17 12:08 Urine Ketones 20 mg/dL (Negative) 03/04/17 12:08 Urine Blood Mod (Negative) 03/04/17 12:08 Urine Nitrite Neg (Negative) 03/04/17 12:08 Urine Bilirubin Neg (Negative) 03/04/17 12:08 Urine Urobilinogen < 2.0 mg/dL (<2.0) 03/04/17 12:08 Ur Leukocyte Esterase Neg (Negative) 03/04/17 12:08 Urine WBC (Auto) 4.0 /HPF (0.0-6.0) 03/04/17 12:08 Urine RBC (Auto) 19.0 /HPF (0.0-6.0) 03/04/17 12:08 U Epithel Cells (Auto) 1.0 /HPF (0-13.0) 03/04/17 12:08 Urine Mucus 3+ /HPF 03/04/17 12:08 Blood Type O POSITIVE 03/04/17 14:21
[2017-03-10] MEDS ORDERED: MARCAINE-EPI/PF 0.5%-1:200,000 INFILTRATI ONE (12:00)
[2017-03-10] MEDS ORDERED: ePHEDrine SULFATE ONE (12:45)
[2017-03-10] MEDS ORDERED: NACL 0.9% IR ONE (13:15)
[2017-03-10] MEDS ORDERED: ROBINUL ONE (13:54)
[2017-03-10] MEDS ORDERED: NEOSTIGMINE ONE (13:54)
[2017-03-10] MEDS ORDERED: NEO SYNEPHRINE ONE (13:54)
[2017-03-10] MEDS ORDERED: MORPHINE IV PRN (13:55)
[2017-03-10] MEDS ORDERED: DILAUDID ONE (14:27)
[2017-03-10] MEDS ORDERED: BREVIBLOC IV ONE ×2 (14:31→15:05)
--- NOTE | 2017-03-10 14:35 | Operative Report ---
DATE OF PROCEDURE: 03/10/2017 PREOPERATIVE DIAGNOSIS: Rule out small-bowel obstruction. POSTOPERATIVE DIAGNOSES: Small-bowel obstruction secondary to extensive adhesions. PROCEDURE: Exploratory laparotomy and lysis of extensive adhesions. SURGEON: Lucas Gong MD METEOROLOGIST IN CHARGE: Dr. Mejia ANESTHESIA: General. ESTIMATED BLOOD LOSS: Minimal. DRAINS: None. COMPLICATIONS: None. PROCEDURE IN DETAIL: The patient was taken to the operating room, prepped and draped in usual sterile fashion. A midline incision was made and abdomen slowly entered. There were extensive omental as well as intestinal adhesions are plastered to the undersurface of the peritoneum. The abdomen was slowly opened through tedious blunt as well as sharp dissection until the entire area was exposed. The dilated loops of small bowel quickly popped out into the operative field. A Adrian retractor was placed. The ligament of Treitz was identified and the dilated bowel followed down to the site of obstruction. There were extensive adhesions and possibly 2 sites, 1of partial obstruction, then another 1 of even high-grade obstruction down in the pelvis. All areas were slowly lysed and dissected free. The entire small bowel was then once again run from ligament of Treitz down to the right lower quadrant. The patient had had a previous colon surgery where assuming it was in the right colon since the cecum could not be clearly identified. However, the distal ileum that was collapsed was identified until it entered the colon. The entire abdomen was then irrigated copiously and dried, checked for hemostasis and noted to be dry. The fascia was then closed with interrupted #1 Vicryl suture. Subcutaneous tissues were irrigated and skin closed with ike. Fluffs and Elastoplast tape was placed and abdominal binder will also be placed. The patient tolerated the procedure well and left OR in stable condition. JOB# [id number] FP/TENZIN
--- NOTE | 2017-03-10 14:48 | Post Anesthesia Evaluation ---
- Post Anesthesia Evaluation Patient Participated: Yes Airway Patent: Yes Stable Respiratory Function: Yes Nausea/Vomiting: No Temp > 96.8F: Yes Pain Manageable: Yes Adequeate Hydration: Yes Anesthesia Complications: No Block Receding Appropriately: Not Applicable Patient on Ventilator: No
[2017-03-10] MEDS ORDERED: ATROVENT IH ONE ×3 (14:53→15:10)
[2017-03-10] MEDS ORDERED: DILAUDID IV PRN (15:00)
[2017-03-10] MEDS ORDERED: LOPRESSOR IV NR (15:00)
[2017-03-10] MEDS ORDERED: XOPENEX IH ONE (15:10)
--- NOTE | 2017-03-10 15:37 | XRay Report ---
Flatplate of abdomen: History: Post NG insertion. Findings: Tip of NG tube is noted in the fundus of the stomach. The tip is pointing towards the diaphragm. Impression: Findings as detailed above.
--- NOTE | 2017-03-10 16:19 | XRay Report ---
Single view abdomen: History: NG tube adjustment. Findings: Tip of NG tube is noted mid fundus of stomach. Impression: Tip of NG tube is noted in the fundus of the stomach
[2017-03-10] MEDS ORDERED: TPN ADULT 2,016 ML IV SCH (20:00)
[2017-03-11] MEDS: LOPRESSOR IV SCH ×5 (00:13→19:07)
[2017-03-11] MEDS: D5/0.45NS 1,000 ML IV SCH (03:40)
[2017-03-11] MEDS: FLAGYL 500 MG/100 ML 500 MG/100 ML BAG IV SCH ×3 (06:46→23:01)
[2017-03-11 07:56] LABS: Hematocrit 39.1 % (35.5-45.6); Hemoglobin 13.5 gm/dl (11.8-15.2); Mean Corpuscular HGB Conc 35 % (32-34); Mean Corpuscular Hemoglobin 35 pg (28-32); Mean Corpuscular Volume 101 fl (84-94); Platelet Count 121 K/mm3 (140-440); Red Blood Count 3.88 M/mm3 (3.65-5.03); Red Cell Distribution Width 13.9 % (13.2-15.2); White Blood Count 11.3 K/mm3 (4.5-11.0)
[2017-03-11 08:11] LABS: Magnesium 1.9 mg/dL (1.7-2.3); Phosphorous 2.8 mg/dL (2.5-4.5)
[2017-03-11 08:13] LABS: Alanine Aminotransferase 6 units/L (7-56); Albumin 2.6 g/dL (3.9-5); Albumin/Globulin Ratio 0.9 %; Alkaline Phosphatase 41 units/L (35-129); Anion Gap 11 mmol/L; BUN/Creatinine Ratio 23; Blood Urea Nitrogen 18 mg/dL (9-20); Calcium 8.4 mg/dL (8.4-10.2); Carbon Dioxide 29 mmol/L (22-30); Chloride 101.5 mmol/L (98-107); Glucose 118 mg/dL (75-100); Sodium 137 mmol/L (137-145); Total Protein 5.6 g/dL (6.3-8.2)
[2017-03-11 08:53] LABS: Potassium 4.1 mmol/L (3.6-5.0)
--- NOTE | 2017-03-11 10:05 | Progress Note ---
Assessment and Plan Assessment and plan: Small bowel obstruction with peritonitis. Continue per surgery. Patient s/p exploratory laparotomy for extensive lysis of adhesions yesterday, continue Levaquin and Flagyl. Continue NG tube suction. Patient reports flatus. Atrial fibrillation. Resume Coumadin per cardiology. Continue beta cas IV until able to take by mouth. No ischemia by MPI in 2007. EF 50-55% by GUDELIA on . 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 Outpatient follow-up or vascular surgery. Hypokalemia. Replete potassium as needed History Interval history: No new issues overnight. Patient status post abdominal surgery yesterday. Hospitalist Physical - Constitutional Vitals: Temp Pulse Resp BP Pulse Ox 97.6 F 96 H 18 123/86 97 03/11/17 07:37 03/11/17 07:37 03/11/17 07:37 03/11/17 07:37 03/11/17 09:52 General appearance: Present: no acute distress - EENT Eyes: Present: PERRL, EOM intact ENT: hearing intact, clear oral mucosa, dentition normal - Neck Neck: Present: supple, normal ROM - Respiratory Respiratory effort: normal Respiratory: bilateral: CTA - Cardiovascular Rhythm: regular Heart Sounds: Present: S1 & S2. Absent: gallop, rub - Extremities Extremities: no ischemia, No edema, Full ROM - Abdominal General gastrointestinal: soft, tender (appropriately), non-distended, normal bowel sounds - Integumentary Integumentary: Present: clear, warm, dry - Neurologic Neurologic: CNII-XII intact, moves all extremities Results - Labs CBC & Chem 7: 03/11/17 07:30 03/11/17 07:30 Labs: Laboratory Last Values WBC 11.3 K/mm3 (4.5-11.0) H 03/11/17 07:30 RBC 3.88 M/mm3 (3.65-5.03) 03/11/17 07:30 Hgb 13.5 gm/dl (11.8-15.2) 03/11/17 07:30 Hct 39.1 % (35.5-45.6) 03/11/17 07:30 MCV 101 fl (84-94) H 03/11/17 07:30 MCH 35 pg (28-32) H 03/11/17 07:30 MCHC 35 % (32-34) H 03/11/17 07:30 RDW 13.9 % (13.2-15.2) 03/11/17 07:30 Plt Count 121 K/mm3 (140-440) L 03/11/17 07:30 Lymph % (Auto) 6.6 % (13.4-35.0) L 03/11/17 07:30 [place] % (Auto) 7.7 % (0.0-7.3) H 03/11/17 07:30 Eos % (Auto) 0.0 % (0.0-4.3) 03/11/17 07:30 Baso % (Auto) 0.0 % (0.0-1.8) 03/11/17 07:30 Lymph # 0.7 K/mm3 (1.2-5.4) L 03/11/17 07:30 [place] # 0.9 K/mm3 (0.0-0.8) H 03/11/17 07:30 Eos # 0.0 K/mm3 (0.0-0.4) 03/11/17 07:30 Baso # 0.0 K/mm3 (0.0-0.1) 03/11/17 07:30 Add Manual Diff Complete 03/05/17 05:12 Total Counted 100 03/05/17 05:12 Seg Neutrophils % 85.7 % (40.0-70.0) H 03/11/17 07:30 Seg Neuts % (Manual) 34.0 % (40.0-70.0) L 03/05/17 05:12 Band Neutrophils % 6.0 % 03/05/17 05:12 Lymphocytes % (Manual) 37.0 % (13.4-35.0) H 03/05/17 05:12 Reactive Lymphs % (Man) 0 % 03/05/17 05:12 Monocytes % (Manual) 20.0 % (0.0-7.3) H 03/05/17 05:12 Eosinophils % (Manual) 2.0 % (0.0-4.3) 03/05/17 05:12 Basophils % (Manual) 1.0 % (0.0-1.8) 03/05/17 05:12 Metamyelocytes % 0 % 03/05/17 05:12 Myelocytes % 0 % 03/05/17 05:12 Promyelocytes % 0 % 03/05/17 05:12 Blast Cells % 0 % 03/05/17 05:12 Nucleated RBC % Not Reportable 03/05/17 05:12 Seg Neutrophils # 9.7 K/mm3 (1.8-7.7) H 03/11/17 07:30 Seg Neutrophils # Man 1.0 K/mm3 (1.8-7.7) L 03/05/17 05:12 Band Neutrophils # 0.2 K/mm3 03/05/17 05:12 Lymphocytes # (Manual) 1.0 K/mm3 (1.2-5.4) L 03/05/17 05:12 Abs React Lymphs (Man) 0.0 K/mm3 03/05/17 05:12 Monocytes # (Manual) 0.6 K/mm3 (0.0-0.8) 03/05/17 05:12 Eosinophils # (Manual) 0.1 K/mm3 (0.0-0.4) 03/05/17 05:12 Basophils # (Manual) 0.0 K/mm3 (0.0-0.1) 03/05/17 05:12 Metamyelocytes # 0.0 K/mm3 03/05/17 05:12 Myelocytes # 0.0 K/mm3 03/05/17 05:12 Promyelocytes # 0.0 K/mm3 03/05/17 05:12 Blast Cells # 0.0 K/mm3 03/05/17 05:12 WBC Morphology Not Reportable 03/05/17 05:12 Hypersegmented Neuts Not Reportable 03/05/17 05:12 Hyposegmented Neuts Not Reportable 03/05/17 05:12 Hypogranular Neuts Not Reportable 03/05/17 05:12 Smudge Cells Not Reportable 03/05/17 05:12 Toxic Granulation Not Reportable 03/05/17 05:12 Toxic Vacuolation Not Reportable 03/05/17 05:12 Dohle Bodies Not Reportable 03/05/17 05:12 Pelger-Huet Anomaly Not Reportable 03/05/17 05:12 Jack Rods Not Reportable 03/05/17 05:12 Platelet Estimate Consistent w auto 03/05/17 05:12 Clumped Platelets Not Reportable 03/05/17 05:12 Plt Clumps, EDTA Not Reportable 03/05/17 05:12 Large Platelets Not Reportable 03/05/17 05:12 Giant Platelets Not Reportable 03/05/17 05:12 Platelet Satelliting Not Reportable 03/05/17 05:12 Plt Morphology Comment Not Reportable 03/05/17 05:12 RBC Morphology Normal 03/05/17 05:12 Dimorphic RBCs Not Reportable 03/05/17 05:12 Polychromasia Not Reportable 03/05/17 05:12 Hypochromasia Not Reportable 03/05/17 05:12 Poikilocytosis Not Reportable 03/05/17 05:12 Anisocytosis Not Reportable 03/05/17 05:12 Microcytosis Not Reportable 03/05/17 05:12 Macrocytosis Not Reportable 03/05/17 05:12 Spherocytes Not Reportable 03/05/17 05:12 Pappenheimer Bodies Not Reportable 03/05/17 05:12 Sickle Cells Not Reportable 03/05/17 05:12 Target Cells Not Reportable 03/05/17 05:12 Tear Drop Cells Not Reportable 03/05/17 05:12 Ovalocytes Not Reportable 03/05/17 05:12 Helmet Cells Not Reportable 03/05/17 05:12 [place] Bodies Not Reportable 03/05/17 05:12 [place] Rings Not Reportable 03/05/17 05:12 [place] Cells Not Reportable 03/05/17 05:12 Bite Cells Not Reportable 03/05/17 05:12 Crenated Cell Not Reportable 03/05/17 05:12 Elliptocytes Not Reportable 03/05/17 05:12 Acanthocytes (Spur) Not Reportable 03/05/17 05:12 Rouleaux Not Reportable 03/05/17 05:12 Hemoglobin C Crystals Not Reportable 03/05/17 05:12 Schistocytes Not Reportable 03/05/17 05:12 Malaria parasites Not Reportable 03/05/17 05:12 Asif Bodies Not Reportable 03/05/17 05:12 Hem Pathologist Commnt No 03/05/17 05:12 PT 18.6 Sec. (12.2-14.9) H 03/09/17 14:42 INR 1.47 (0.87-1.13) H 03/09/17 14:42 APTT 32.2 Sec. (24.2-36.6) 03/09/17 14:42 Sodium 137 mmol/L (137-145) 03/11/17 07:30 Potassium 4.1 mmol/L (3.6-5.0) D 03/11/17 07:30 Chloride 101.5 mmol/L (98-107) 03/11/17 07:30 Carbon Dioxide 29 mmol/L (22-30) 03/11/17 07:30 Anion Gap 11 mmol/L 03/11/17 07:30 BUN 18 mg/dL (9-20) 03/11/17 07:30 Creatinine 0.8 mg/dL (0.8-1.5) 03/11/17 07:30 Estimated GFR > 60 ml/min 03/11/17 07:30 BUN/Creatinine Ratio 23 % 03/11/17 07:30 Glucose 118 mg/dL (75-100) H 03/11/17 07:30 POC Glucose 129 (70-105) H 03/11/17 06:10 Lactic Acid 2.00 mmol/L (0.7-2.0) 03/04/17 10:38 Calcium 8.4 mg/dL (8.4-10.2) 03/11/17 07:30 Phosphorus 2.80 mg/dL (2.5-4.5) D 03/11/17 07:30 Magnesium 1.90 mg/dL (1.7-2.3) 03/11/17 07:30 Total Bilirubin 0.60 mg/dL (0.1-1.2) 03/11/17 07:30 Direct Bilirubin < 0.2 mg/dL (0-0.2) 03/03/17 16:11 Indirect Bilirubin 0.8 mg/dL 03/03/17 16:11 AST 12 units/L (5-40) 03/11/17 07:30 ALT 6 units/L (7-56) L 03/11/17 07:30 Alkaline Phosphatase 41 units/L (35-129) 03/11/17 07:30 Total Protein 5.6 g/dL (6.3-8.2) L 03/11/17 07:30 Albumin 2.6 g/dL (3.9-5) L 03/11/17 07:30 Albumin/Globulin Ratio 0.9 % 03/11/17 07:30 Triglycerides 62 mg/dL (2-149) 03/11/17 07:30 Amylase 49 units/L (27-131) 03/05/17 05:12 Lipase 16 units/L (13-60) 03/03/17 16:11 Urine Color Karlene (Yellow) 03/04/17 12:08 Urine Turbidity Clear (Clear) 03/04/17 12:08 Urine pH 5.0 (5.0-7.0) 03/04/17 12:08 Ur Specific [place] 1.056 (1.003-1.030) H 03/04/17 12:08 Urine Protein 100 mg/dl mg/dL (Negative) 03/04/17 12:08 Urine Glucose (UA) Neg mg/dL (Negative) 03/04/17 12:08 Urine Ketones 20 mg/dL (Negative) 03/04/17 12:08 Urine Blood Mod (Negative) 03/04/17 12:08 Urine Nitrite Neg (Negative) 03/04/17 12:08 Urine Bilirubin Neg (Negative) 03/04/17 12:08 Urine Urobilinogen < 2.0 mg/dL (<2.0) 03/04/17 12:08 Ur Leukocyte Esterase Neg (Negative) 03/04/17 12:08 Urine WBC (Auto) 4.0 /HPF (0.0-6.0) 03/04/17 12:08 Urine RBC (Auto) 19.0 /HPF (0.0-6.0) 03/04/17 12:08 U Epithel Cells (Auto) 1.0 /HPF (0-13.0) 03/04/17 12:08 Urine Mucus 3+ /HPF 03/04/17 12:08 Blood Type O POSITIVE 03/04/17 14:21
--- NOTE | 2017-03-11 10:13 | Progress Note ---
Assessment and Plan POD # 1 Pt status quo. c/o sore throat. Abd 1+ distended. dressings dry s/p expl lap, lysis of extensive adhesions. Incentive spirometer OOB as madeleine d/c puneet in am Selected Entries 03/11/17 07:37 Temperature 97.6 F Blood Pressure 123/86 Laboratory Tests 03/11/17 03/11/17 07:30 07:30 WBC 11.3 H Hgb 13.5 Hct 39.1 Sodium 137 Potassium 4.1 D Chloride 101.5 Carbon Dioxide 29 BUN 18 Creatinine 0.8 Objective Vital Signs - 12hr 03/11/17 03/11/17 03/11/17 00:01 00:13 05:17 Temperature 98.1 F 97.6 F Pulse Rate 90 120 H 115 H Respiratory 20 Rate Blood Pressure 116/68 110/69 124/80 O2 Sat by Pulse 98 98 Oximetry 03/11/17 03/11/17 03/11/17 06:47 07:37 09:52 Temperature 97.6 F Pulse Rate 100 H 96 H Respiratory 18 Rate Blood Pressure 138/87 123/86 O2 Sat by Pulse 97 97 Oximetry - Labs 03/11/17 07:30 03/11/17 07:30 Diabetes panel 03/11/17 03/11/17 Range/Units 07:30 07:30 Sodium 137 (137-145) mmol/L Potassium 4.1 D (3.6-5.0) mmol/L Chloride 101.5 (98-107) mmol/L Carbon Dioxide 29 (22-30) mmol/L BUN 18 (9-20) mg/dL Creatinine 0.8 (0.8-1.5) mg/dL Glucose 118 H (75-100) mg/dL Calcium 8.4 (8.4-10.2) mg/dL AST 12 (5-40) units/L ALT 6 L (7-56) units/L Alkaline Phosphatase 41 (35-129) units/L Total Protein 5.6 L (6.3-8.2) g/dL Albumin 2.6 L (3.9-5) g/dL Triglycerides 62 (2-149) mg/dL Calcium panel 03/11/17 03/11/17 Range/Units 07:30 07:30 Calcium 8.4 (8.4-10.2) mg/dL Phosphorus 2.80 D (2.5-4.5) mg/dL Albumin 2.6 L (3.9-5) g/dL Pituitary panel 03/11/17 Range/Units 07:30 Sodium 137 (137-145) mmol/L Potassium 4.1 D (3.6-5.0) mmol/L Chloride 101.5 (98-107) mmol/L Carbon Dioxide 29 (22-30) mmol/L BUN 18 (9-20) mg/dL Creatinine 0.8 (0.8-1.5) mg/dL Glucose 118 H (75-100) mg/dL Calcium 8.4 (8.4-10.2) mg/dL Adrenal panel 03/11/17 Range/Units 07:30 Sodium 137 (137-145) mmol/L Potassium 4.1 D (3.6-5.0) mmol/L Chloride 101.5 (98-107) mmol/L Carbon Dioxide 29 (22-30) mmol/L BUN 18 (9-20) mg/dL Creatinine 0.8 (0.8-1.5) mg/dL Glucose 118 H (75-100) mg/dL Calcium 8.4 (8.4-10.2) mg/dL Total Bilirubin 0.60 (0.1-1.2) mg/dL AST 12 (5-40) units/L ALT 6 L (7-56) units/L Alkaline Phosphatase 41 (35-129) units/L Total Protein 5.6 L (6.3-8.2) g/dL Albumin 2.6 L (3.9-5) g/dL
[2017-03-11] MEDS: PEPCID IV SCH ×2 (10:57→23:00)
[2017-03-11] MEDS: LEVAQUIN 500MG/100ML 500 MG/100 ML BAG IV SCH (10:57)
[2017-03-11] MEDS: CHLORASEPTIC MM PRN ×2 (12:24→19:55)
--- NOTE | 2017-03-11 12:24 | Progress Note ---
Assessment and Plan Permanent atrial fibrillation On coumadin, digoxin and diltiazem as outpatient. Warfarin currently on hold. EF 50-55% by GUDELIA 12/2015 No ischemia by MPI 2007 Abdominal pain Small bowel obstruction on CT abdomen s/p exploratory lap and lysis of extensive adhesions. 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 Continue IV lopressor for rate control of chronic Afib. Subjective Date of service: 03/11/17 Principal diagnosis: small bowel obstruction Interval history: Patient complains of dry mouth. Remains nothing by mouth. He denies chest pain. Stable Afib on telemetry. Objective Vital Signs Temp Pulse Pulse Resp BP BP Pulse Ox 03/11/17 12:21 85 142/91 03/11/17 09:52 97 03/11/17 07:37 97.6 F 96 H 18 123/86 97 03/11/17 06:47 100 H 138/87 03/11/17 05:17 97.6 F 115 H 124/80 98 03/11/17 00:13 120 H 110/69 03/11/17 00:01 98.1 F 90 20 116/68 98 03/10/17 22:00 90 96 03/10/17 21:03 99.3 F 76 22 110/72 98 03/10/17 16:30 97.5 F L 98 H 18 113/79 96 03/10/17 16:20 97.6 F 106 H 20 113/69 99 03/10/17 15:45 109 H 20 120/79 99 03/10/17 15:30 106 H 20 120/88 100 03/10/17 15:15 127 H 20 111/69 90 03/10/17 15:00 110 H 20 104/78 99 03/10/17 14:45 128 H 20 116/82 99 03/10/17 14:30 114 H 22 121/79 100 03/10/17 14:25 158 H 22 113/68 95 03/10/17 14:20 168 H 24 114/62 97 03/10/17 14:15 97.4 F L 171 H 22 121/79 98 - Physical Examination General: No Apparent Distress HEENT: Positive: PERRL Neck: Positive: neck supple Neuro: Positive: Grossly Intact Abdomen: Positive: Soft Extremities: Present: +1 Edema - Labs and Meds Cardiac Enzymes 03/11/17 Range/Units 07:30 AST 12 (5-40) units/L Lipids 03/11/17 Range/Units 07:30 Triglycerides 62 (2-149) mg/dL CBC 03/11/17 Range/Units 07:30 WBC 11.3 H (4.5-11.0) K/mm3 RBC 3.88 (3.65-5.03) M/mm3 Hgb 13.5 (11.8-15.2) gm/dl Hct 39.1 (35.5-45.6) % Plt Count 121 L (140-440) K/mm3 Lymph # 0.7 L (1.2-5.4) K/mm3 [place] # 0.9 H (0.0-0.8) K/mm3 Eos # 0.0 (0.0-0.4) K/mm3 Baso # 0.0 (0.0-0.1) K/mm3 Comprehensive Metabolic Panel 03/11/17 Range/Units 07:30 Sodium 137 (137-145) mmol/L Potassium 4.1 D (3.6-5.0) mmol/L Chloride 101.5 (98-107) mmol/L Carbon Dioxide 29 (22-30) mmol/L BUN 18 (9-20) mg/dL Creatinine 0.8 (0.8-1.5) mg/dL Glucose 118 H (75-100) mg/dL Calcium 8.4 (8.4-10.2) mg/dL AST 12 (5-40) units/L ALT 6 L (7-56) units/L Alkaline Phosphatase 41 (35-129) units/L Total Protein 5.6 L (6.3-8.2) g/dL Albumin 2.6 L (3.9-5) g/dL
[2017-03-11] MEDS ORDERED: TPN ADULT 2,016 ML IV SCH (20:00)
[2017-03-12] MEDS: LOPRESSOR IV SCH ×3 (00:55→19:37)
[2017-03-12] MEDS: FLAGYL 500 MG/100 ML 500 MG/100 ML BAG IV SCH ×3 (05:55→22:44)
[2017-03-12 06:02] LABS: Basophils % (Auto) 0.2 % (0.0-1.8); Eosinophils % (Auto) 0.7 % (0.0-4.3); Hematocrit 39.1 % (35.5-45.6); Hemoglobin 13.7 gm/dl (11.8-15.2); Mean Corpuscular HGB Conc 35 % (32-34); Mean Corpuscular Hemoglobin 35 pg (28-32); Mean Corpuscular Volume 101 fl (84-94); Platelet Count 107 K/mm3 (140-440); Red Blood Count 3.88 M/mm3 (3.65-5.03); White Blood Count 8.9 K/mm3 (4.5-11.0)
[2017-03-12 06:23] LABS: Anion Gap 11 mmol/L; BUN/Creatinine Ratio 24; Blood Urea Nitrogen 19 mg/dL (9-20); Calcium 8.8 mg/dL (8.4-10.2); Carbon Dioxide 29 mmol/L (22-30); Chloride 100.2 mmol/L (98-107); Glucose 92 mg/dL (75-100); Potassium 3.7 mmol/L (3.6-5.0); Sodium 136 mmol/L (137-145)
--- NOTE | 2017-03-12 07:40 | Progress Note ---
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 Outpatient follow-up per vascular Recommendations: Continue IV lopressor for rate control as long as patient remains NPO Initiate anticoagulation when cleared by surgery - will defer this decision to the surgical team Subjective Date of service: 03/12/17 Principal diagnosis: small bowel obstruction Interval history: No cardiac interval changes Objective Vital Signs Temp Pulse Pulse Resp BP Pulse Ox 03/12/17 06:46 107 H 169/99 03/12/17 05:44 99.5 F 87 20 161/99 98 03/12/17 00:30 98.6 F 108 H 22 127/98 97 03/11/17 22:00 100 H 18 98 03/11/17 20:29 98.6 F 103 H 22 147/102 97 03/11/17 19:07 134/100 03/11/17 15:48 98.6 F 86 18 134/100 99 03/11/17 12:21 85 142/91 03/11/17 12:10 98.0 F 105 H 18 142/95 97 03/11/17 09:52 97 - Physical Examination General: No Apparent Distress HEENT: Positive: PERRL Neck: Positive: neck supple Cardiac: Positive: Reg Rate and Rhythm Lungs: Positive: Normal Exam Neuro: Positive: Grossly Intact Abdomen: Positive: Soft Extremities: Present: +1 Edema - Labs and Meds Cardiac Enzymes 03/11/17 Range/Units 07:30 AST 12 (5-40) units/L Lipids 03/11/17 Range/Units 07:30 Triglycerides 62 (2-149) mg/dL CBC 03/11/17 03/12/17 Range/Units 07:30 04:40 WBC 11.3 H 8.9 (4.5-11.0) K/mm3 RBC 3.88 3.88 (3.65-5.03) M/mm3 Hgb 13.5 13.7 (11.8-15.2) gm/dl Hct 39.1 39.1 (35.5-45.6) % Plt Count 121 L 107 L (140-440) K/mm3 Lymph # 0.7 L 0.9 L (1.2-5.4) K/mm3 [place] # 0.9 H 0.7 (0.0-0.8) K/mm3 Eos # 0.0 0.1 (0.0-0.4) K/mm3 Baso # 0.0 0.0 (0.0-0.1) K/mm3 Comprehensive Metabolic Panel 03/11/17 03/12/17 Range/Units 07:30 04:40 Sodium 137 136 L (137-145) mmol/L Potassium 4.1 D 3.7 (3.6-5.0) mmol/L Chloride 101.5 100.2 (98-107) mmol/L Carbon Dioxide 29 29 (22-30) mmol/L BUN 18 19 (9-20) mg/dL Creatinine 0.8 0.8 (0.8-1.5) mg/dL Glucose 118 H 92 (75-100) mg/dL Calcium 8.4 8.8 (8.4-10.2) mg/dL AST 12 (5-40) units/L ALT 6 L (7-56) units/L Alkaline Phosphatase 41 (35-129) units/L Total Protein 5.6 L (6.3-8.2) g/dL Albumin 2.6 L (3.9-5) g/dL
--- NOTE | 2017-03-12 11:26 | Progress Note ---
Assessment and Plan Assessment and plan: Small bowel obstruction with peritonitis. Continue per surgery. Patient s/p exploratory laparotomy for extensive lysis of adhesions yesterday, continue Levaquin and Flagyl. Continue NG tube suction. Patient reports flatus and bowel movement. Atrial fibrillation. Resume Coumadin per cardiology. Continue beta cas IV until able to take by mouth. No ischemia by MPI in 2007. EF 50-55% by GUDELIA on . 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 Outpatient follow-up or vascular surgery. Hypokalemia. Replete potassium as needed History Interval history: No new issues overnight. Patient complains of generalized weakness.. Hospitalist Physical - Constitutional Vitals: Temp Pulse Resp BP Pulse Ox 98.2 F 94 H 20 146/95 100 03/12/17 07:23 03/12/17 07:24 03/12/17 07:23 03/12/17 07:23 03/12/17 07:24 General appearance: Present: no acute distress - EENT Eyes: Present: PERRL, EOM intact ENT: hearing intact, clear oral mucosa, dentition normal - Neck Neck: Present: supple, normal ROM - Respiratory Respiratory effort: normal Respiratory: bilateral: CTA - Cardiovascular Rhythm: regular Heart Sounds: Present: S1 & S2. Absent: gallop, rub - Extremities Extremities: no ischemia, No edema, Full ROM - Abdominal General gastrointestinal: soft, tender (appropriately), non-distended, normal bowel sounds - Integumentary Integumentary: Present: clear, warm, dry - Neurologic Neurologic: CNII-XII intact, moves all extremities Results - Labs CBC & Chem 7: 03/12/17 04:40 03/12/17 04:40 Labs: Laboratory Last Values WBC 8.9 K/mm3 (4.5-11.0) 03/12/17 04:40 RBC 3.88 M/mm3 (3.65-5.03) 03/12/17 04:40 Hgb 13.7 gm/dl (11.8-15.2) 03/12/17 04:40 Hct 39.1 % (35.5-45.6) 03/12/17 04:40 MCV 101 fl (84-94) H 03/12/17 04:40 MCH 35 pg (28-32) H 03/12/17 04:40 MCHC 35 % (32-34) H 03/12/17 04:40 RDW 14.0 % (13.2-15.2) 03/12/17 04:40 Plt Count 107 K/mm3 (140-440) L 03/12/17 04:40 Lymph % (Auto) 10.0 % (13.4-35.0) L 03/12/17 04:40 [place] % (Auto) 7.8 % (0.0-7.3) H 03/12/17 04:40 Eos % (Auto) 0.7 % (0.0-4.3) 03/12/17 04:40 Baso % (Auto) 0.2 % (0.0-1.8) 03/12/17 04:40 Lymph # 0.9 K/mm3 (1.2-5.4) L 03/12/17 04:40 [place] # 0.7 K/mm3 (0.0-0.8) 03/12/17 04:40 Eos # 0.1 K/mm3 (0.0-0.4) 03/12/17 04:40 Baso # 0.0 K/mm3 (0.0-0.1) 03/12/17 04:40 Add Manual Diff Complete 03/05/17 05:12 Total Counted 100 03/05/17 05:12 Seg Neutrophils % 81.3 % (40.0-70.0) H 03/12/17 04:40 Seg Neuts % (Manual) 34.0 % (40.0-70.0) L 03/05/17 05:12 Band Neutrophils % 6.0 % 03/05/17 05:12 Lymphocytes % (Manual) 37.0 % (13.4-35.0) H 03/05/17 05:12 Reactive Lymphs % (Man) 0 % 03/05/17 05:12 Monocytes % (Manual) 20.0 % (0.0-7.3) H 03/05/17 05:12 Eosinophils % (Manual) 2.0 % (0.0-4.3) 03/05/17 05:12 Basophils % (Manual) 1.0 % (0.0-1.8) 03/05/17 05:12 Metamyelocytes % 0 % 03/05/17 05:12 Myelocytes % 0 % 03/05/17 05:12 Promyelocytes % 0 % 03/05/17 05:12 Blast Cells % 0 % 03/05/17 05:12 Nucleated RBC % Not Reportable 03/05/17 05:12 Seg Neutrophils # 7.3 K/mm3 (1.8-7.7) 03/12/17 04:40 Seg Neutrophils # Man 1.0 K/mm3 (1.8-7.7) L 03/05/17 05:12 Band Neutrophils # 0.2 K/mm3 03/05/17 05:12 Lymphocytes # (Manual) 1.0 K/mm3 (1.2-5.4) L 03/05/17 05:12 Abs React Lymphs (Man) 0.0 K/mm3 03/05/17 05:12 Monocytes # (Manual) 0.6 K/mm3 (0.0-0.8) 03/05/17 05:12 Eosinophils # (Manual) 0.1 K/mm3 (0.0-0.4) 03/05/17 05:12 Basophils # (Manual) 0.0 K/mm3 (0.0-0.1) 03/05/17 05:12 Metamyelocytes # 0.0 K/mm3 03/05/17 05:12 Myelocytes # 0.0 K/mm3 03/05/17 05:12 Promyelocytes # 0.0 K/mm3 03/05/17 05:12 Blast Cells # 0.0 K/mm3 03/05/17 05:12 WBC Morphology Not Reportable 03/05/17 05:12 Hypersegmented Neuts Not Reportable 03/05/17 05:12 Hyposegmented Neuts Not Reportable 03/05/17 05:12 Hypogranular Neuts Not Reportable 03/05/17 05:12 Smudge Cells Not Reportable 03/05/17 05:12 Toxic Granulation Not Reportable 03/05/17 05:12 Toxic Vacuolation Not Reportable 03/05/17 05:12 Dohle Bodies Not Reportable 03/05/17 05:12 Pelger-Huet Anomaly Not Reportable 03/05/17 05:12 Jack Rods Not Reportable 03/05/17 05:12 Platelet Estimate Consistent w auto 03/05/17 05:12 Clumped Platelets Not Reportable 03/05/17 05:12 Plt Clumps, EDTA Not Reportable 03/05/17 05:12 Large Platelets Not Reportable 03/05/17 05:12 Giant Platelets Not Reportable 03/05/17 05:12 Platelet Satelliting Not Reportable 03/05/17 05:12 Plt Morphology Comment Not Reportable 03/05/17 05:12 RBC Morphology Normal 03/05/17 05:12 Dimorphic RBCs Not Reportable 03/05/17 05:12 Polychromasia Not Reportable 03/05/17 05:12 Hypochromasia Not Reportable 03/05/17 05:12 Poikilocytosis Not Reportable 03/05/17 05:12 Anisocytosis Not Reportable 03/05/17 05:12 Microcytosis Not Reportable 03/05/17 05:12 Macrocytosis Not Reportable 03/05/17 05:12 Spherocytes Not Reportable 03/05/17 05:12 Pappenheimer Bodies Not Reportable 03/05/17 05:12 Sickle Cells Not Reportable 03/05/17 05:12 Target Cells Not Reportable 03/05/17 05:12 Tear Drop Cells Not Reportable 03/05/17 05:12 Ovalocytes Not Reportable 03/05/17 05:12 Helmet Cells Not Reportable 03/05/17 05:12 [place] Bodies Not Reportable 03/05/17 05:12 [place] Rings Not Reportable 03/05/17 05:12 [place] Cells Not Reportable 03/05/17 05:12 Bite Cells Not Reportable 03/05/17 05:12 Crenated Cell Not Reportable 03/05/17 05:12 Elliptocytes Not Reportable 03/05/17 05:12 Acanthocytes (Spur) Not Reportable 03/05/17 05:12 Rouleaux Not Reportable 03/05/17 05:12 Hemoglobin C Crystals Not Reportable 03/05/17 05:12 Schistocytes Not Reportable 03/05/17 05:12 Malaria parasites Not Reportable 03/05/17 05:12 Asif Bodies Not Reportable 03/05/17 05:12 Hem Pathologist Commnt No 03/05/17 05:12 PT 18.6 Sec. (12.2-14.9) H 03/09/17 14:42 INR 1.47 (0.87-1.13) H 03/09/17 14:42 APTT 32.2 Sec. (24.2-36.6) 03/09/17 14:42 Sodium 136 mmol/L (137-145) L 03/12/17 04:40 Potassium 3.7 mmol/L (3.6-5.0) 03/12/17 04:40 Chloride 100.2 mmol/L (98-107) 03/12/17 04:40 Carbon Dioxide 29 mmol/L (22-30) 03/12/17 04:40 Anion Gap 11 mmol/L 03/12/17 04:40 BUN 19 mg/dL (9-20) 03/12/17 04:40 Creatinine 0.8 mg/dL (0.8-1.5) 03/12/17 04:40 Estimated GFR > 60 ml/min 03/12/17 04:40 BUN/Creatinine Ratio 24 % 03/12/17 04:40 Glucose 92 mg/dL (75-100) 03/12/17 04:40 POC Glucose 108 (70-105) H 03/12/17 06:18 Lactic Acid 2.00 mmol/L (0.7-2.0) 03/04/17 10:38 Calcium 8.8 mg/dL (8.4-10.2) 03/12/17 04:40 Phosphorus 2.40 mg/dL (2.5-4.5) L 03/12/17 04:40 Magnesium 1.90 mg/dL (1.7-2.3) 03/12/17 04:40 Total Bilirubin 0.60 mg/dL (0.1-1.2) 03/11/17 07:30 Direct Bilirubin < 0.2 mg/dL (0-0.2) 03/03/17 16:11 Indirect Bilirubin 0.8 mg/dL 03/03/17 16:11 AST 12 units/L (5-40) 03/11/17 07:30 ALT 6 units/L (7-56) L 03/11/17 07:30 Alkaline Phosphatase 41 units/L (35-129) 03/11/17 07:30 Total Protein 5.6 g/dL (6.3-8.2) L 03/11/17 07:30 Albumin 2.6 g/dL (3.9-5) L 03/11/17 07:30 Albumin/Globulin Ratio 0.9 % 03/11/17 07:30 Triglycerides 62 mg/dL (2-149) 03/11/17 07:30 Amylase 49 units/L (27-131) 03/05/17 05:12 Lipase 16 units/L (13-60) 03/03/17 16:11 Urine Color [place] (Yellow) 03/04/17 12:08 Urine Turbidity Clear (Clear) 03/04/17 12:08 Urine pH 5.0 (5.0-7.0) 03/04/17 12:08 Ur Specific [place] 1.056 (1.003-1.030) H 03/04/17 12:08 Urine Protein 100 mg/dl mg/dL (Negative) 03/04/17 12:08 Urine Glucose (UA) Neg mg/dL (Negative) 03/04/17 12:08 Urine Ketones 20 mg/dL (Negative) 03/04/17 12:08 Urine Blood Mod (Negative) 03/04/17 12:08 Urine Nitrite Neg (Negative) 03/04/17 12:08 Urine Bilirubin Neg (Negative) 03/04/17 12:08 Urine Urobilinogen < 2.0 mg/dL (<2.0) 03/04/17 12:08 Ur Leukocyte Esterase Neg (Negative) 03/04/17 12:08 Urine WBC (Auto) 4.0 /HPF (0.0-6.0) 03/04/17 12:08 Urine RBC (Auto) 19.0 /HPF (0.0-6.0) 03/04/17 12:08 U Epithel Cells (Auto) 1.0 /HPF (0-13.0) 03/04/17 12:08 Urine Mucus 3+ /HPF 03/04/17 12:08 Blood Type O POSITIVE 03/04/17 14:21
--- NOTE | 2017-03-12 11:39 | Progress Note ---
Assessment and Plan POD #2 Pt feeling well without compl. 1,200 NG drainage Abd soft, dressings dry. neg BS stable d/c teixeira OOB today Selected Entries 03/12/17 03/12/17 07:23 07:24 Temperature 98.2 F Pulse Rate 94 H Respiratory 20 Rate Blood Pressure 146/95 Laboratory Tests 03/12/17 03/12/17 04:40 04:40 WBC 8.9 Hgb 13.7 Hct 39.1 Sodium 136 L Potassium 3.7 Chloride 100.2 Carbon Dioxide 29 Anion Gap 11 BUN 19 Creatinine 0.8 Objective Vital Signs - 12hr 03/12/17 03/12/17 03/12/17 00:30 00:55 05:44 Temperature 98.6 F 99.5 F Pulse Rate 108 H 104 H 87 Respiratory 22 20 Rate Blood Pressure 127/98 136/80 161/99 O2 Sat by Pulse 97 98 Oximetry 03/12/17 03/12/17 03/12/17 06:46 07:23 07:24 Temperature 98.2 F Pulse Rate 107 H 97 H 94 H Respiratory 20 Rate Blood Pressure 169/99 146/95 O2 Sat by Pulse 100 100 Oximetry - Labs 03/12/17 04:40 03/12/17 04:40 Diabetes panel 03/12/17 Range/Units 04:40 Sodium 136 L (137-145) mmol/L Potassium 3.7 (3.6-5.0) mmol/L Chloride 100.2 (98-107) mmol/L Carbon Dioxide 29 (22-30) mmol/L BUN 19 (9-20) mg/dL Creatinine 0.8 (0.8-1.5) mg/dL Glucose 92 (75-100) mg/dL Calcium 8.8 (8.4-10.2) mg/dL Calcium panel 03/12/17 Range/Units 04:40 Calcium 8.8 (8.4-10.2) mg/dL Phosphorus 2.40 L (2.5-4.5) mg/dL Pituitary panel 03/12/17 Range/Units 04:40 Sodium 136 L (137-145) mmol/L Potassium 3.7 (3.6-5.0) mmol/L Chloride 100.2 (98-107) mmol/L Carbon Dioxide 29 (22-30) mmol/L BUN 19 (9-20) mg/dL Creatinine 0.8 (0.8-1.5) mg/dL Glucose 92 (75-100) mg/dL Calcium 8.8 (8.4-10.2) mg/dL Adrenal panel 03/12/17 Range/Units 04:40 Sodium 136 L (137-145) mmol/L Potassium 3.7 (3.6-5.0) mmol/L Chloride 100.2 (98-107) mmol/L Carbon Dioxide 29 (22-30) mmol/L BUN 19 (9-20) mg/dL Creatinine 0.8 (0.8-1.5) mg/dL Glucose 92 (75-100) mg/dL Calcium 8.8 (8.4-10.2) mg/dL
[2017-03-12] MEDS: PEPCID IV SCH ×2 (19:40→22:46)
[2017-03-12] MEDS: LEVAQUIN 500MG/100ML 500 MG/100 ML BAG IV SCH (19:40)
[2017-03-12] MEDS ORDERED: INTRALIPID 20% 250 ML IV SCH (20:00)
[2017-03-12] MEDS ORDERED: TPN ADULT 2,016 ML IV SCH (20:00)
[2017-03-12] MEDS: ZOFRAN IV PRN (23:48)
[2017-03-13] MEDS: LOPRESSOR IV SCH ×5 (00:54→18:49)
[2017-03-13] MEDS: FLAGYL 500 MG/100 ML 500 MG/100 ML BAG IV SCH ×3 (06:04→22:13)
[2017-03-13] MEDS ORDERED: LOPRESSOR IV ONE (06:15)
[2017-03-13 06:21] LABS: Basophils % (Auto) 0.2 % (0.0-1.8); Eosinophils % (Auto) 1.1 % (0.0-4.3); Hematocrit 39.3 % (35.5-45.6); Hemoglobin 13.6 gm/dl (11.8-15.2); Mean Corpuscular HGB Conc 35 % (32-34); Mean Corpuscular Hemoglobin 35 pg (28-32); Mean Corpuscular Volume 102 fl (84-94); Platelet Count 101 K/mm3 (140-440); Red Blood Count 3.85 M/mm3 (3.65-5.03); White Blood Count 9.8 K/mm3 (4.5-11.0)
[2017-03-13 06:35] LABS: Anion Gap 11 mmol/L; BUN/Creatinine Ratio 29; Blood Urea Nitrogen 20 mg/dL (9-20); Calcium 9.1 mg/dL (8.4-10.2); Carbon Dioxide 31 mmol/L (22-30); Chloride 100.7 mmol/L (98-107); Glucose 119 mg/dL (75-100); Sodium 139 mmol/L (137-145)
[2017-03-13] MEDS: PEPCID IV SCH ×3 (08:14→22:13)
--- NOTE | 2017-03-13 08:56 | Progress Note ---
Assessment and Plan POD #3 Pt states feeling O.K. passed flatus? Chest - decreased bi-basilar BS Abd soft. dressings dry. neg BS stable ileus atelectasis? CPT aerosol Rx CxR ambulate as madeleine Selected Entries 03/13/17 03/13/17 06:46 07:30 Temperature 99.0 F Pulse Rate 102 H Respiratory 20 Rate Blood Pressure 140/82 [Right] Laboratory Tests 03/13/17 03/13/17 05:35 05:35 WBC 9.8 Hgb 13.6 Hct 39.3 Sodium 139 Potassium 4.0 Chloride 100.7 Carbon Dioxide 31 H BUN 20 Creatinine 0.7 L Objective Vital Signs - 12hr 03/12/17 03/12/17 03/12/17 20:58 22:00 23:15 Temperature 99.0 F Pulse Rate 100 H 111 H Pulse Rate [ 100 H From Monitor] Respiratory 17 20 Rate Blood Pressure Blood Pressure 170/109 [Right] O2 Sat by Pulse 98 96 98 Oximetry 03/13/17 03/13/17 03/13/17 00:54 06:45 06:46 Temperature Pulse Rate 106 H 102 H 102 H Pulse Rate [ From Monitor] Respiratory Rate Blood Pressure 145/99 139/78 130/88 Blood Pressure [Right] O2 Sat by Pulse Oximetry 03/13/17 07:30 Temperature 99.0 F Pulse Rate 87 Pulse Rate [ From Monitor] Respiratory 20 Rate Blood Pressure Blood Pressure 140/82 [Right] O2 Sat by Pulse 96 Oximetry - Labs 03/13/17 05:35 03/13/17 05:35 Diabetes panel 03/13/17 Range/Units 05:35 Sodium 139 (137-145) mmol/L Potassium 4.0 (3.6-5.0) mmol/L Chloride 100.7 (98-107) mmol/L Carbon Dioxide 31 H (22-30) mmol/L BUN 20 (9-20) mg/dL Creatinine 0.7 L (0.8-1.5) mg/dL Glucose 119 H (75-100) mg/dL Calcium 9.1 (8.4-10.2) mg/dL Calcium panel 03/13/17 Range/Units 05:35 Calcium 9.1 (8.4-10.2) mg/dL Phosphorus 2.30 L (2.5-4.5) mg/dL Pituitary panel 03/13/17 Range/Units 05:35 Sodium 139 (137-145) mmol/L Potassium 4.0 (3.6-5.0) mmol/L Chloride 100.7 (98-107) mmol/L Carbon Dioxide 31 H (22-30) mmol/L BUN 20 (9-20) mg/dL Creatinine 0.7 L (0.8-1.5) mg/dL Glucose 119 H (75-100) mg/dL Calcium 9.1 (8.4-10.2) mg/dL Adrenal panel 03/13/17 Range/Units 05:35 Sodium 139 (137-145) mmol/L Potassium 4.0 (3.6-5.0) mmol/L Chloride 100.7 (98-107) mmol/L Carbon Dioxide 31 H (22-30) mmol/L BUN 20 (9-20) mg/dL Creatinine 0.7 L (0.8-1.5) mg/dL Glucose 119 H (75-100) mg/dL Calcium 9.1 (8.4-10.2) mg/dL
[2017-03-13] MEDS ORDERED: PROAIR IH SCH (09:00)
[2017-03-13] MEDS ORDERED: PROVENTIL IH PRN ×2 (09:17→09:20)
--- NOTE | 2017-03-13 10:04 | Progress Note ---
Assessment and Plan 1. Small bowel obstruction status post surgery for lysis of adhesions. 2. Chronic atrial fibrillation 3. Right common iliac artery aneurysm 4.1 cm. 4. Essential hypertension Plan. Cardiac-mcmanus stable resume Coumadin on diltiazem. Follow-up PT INR checked in the office. Subjective Date of service: 03/13/17 Principal diagnosis: small bowel obstruction Interval history: No cardiac symptoms Objective Vital Signs Temp Pulse Pulse Resp BP BP Pulse Ox 03/13/17 08:00 97.8 F 92 H 20 152/91 98 03/13/17 07:30 99.0 F 87 20 140/82 96 03/13/17 06:46 102 H 130/88 03/13/17 06:45 102 H 139/78 03/13/17 00:54 106 H 145/99 03/12/17 23:15 99.0 F 111 H 20 170/109 98 03/12/17 22:00 100 H 100 H 17 96 03/12/17 20:58 98 03/12/17 20:00 98.6 F 94 H 20 126/100 98 03/12/17 16:20 97.9 F 101 H 20 170/100 97 - Physical Examination General: No Apparent Distress HEENT: Positive: PERRL Neck: Positive: neck supple Cardiac: Positive: Regular Rate, S1/S2, PMI, Laterally Displaced Lungs: Positive: clear to auscultation, No Wheeze, Rales, Rhonchi Neuro: Positive: Grossly Intact Abdomen: Positive: Soft Extremities: Present: normal - Labs and Meds CBC 03/13/17 Range/Units 05:35 WBC 9.8 (4.5-11.0) K/mm3 RBC 3.85 (3.65-5.03) M/mm3 Hgb 13.6 (11.8-15.2) gm/dl Hct 39.3 (35.5-45.6) % Plt Count 101 L (140-440) K/mm3 Lymph # 0.9 L (1.2-5.4) K/mm3 [place] # 0.6 (0.0-0.8) K/mm3 Eos # 0.1 (0.0-0.4) K/mm3 Baso # 0.0 (0.0-0.1) K/mm3 Comprehensive Metabolic Panel 03/13/17 Range/Units 05:35 Sodium 139 (137-145) mmol/L Potassium 4.0 (3.6-5.0) mmol/L Chloride 100.7 (98-107) mmol/L Carbon Dioxide 31 H (22-30) mmol/L BUN 20 (9-20) mg/dL Creatinine 0.7 L (0.8-1.5) mg/dL Glucose 119 H (75-100) mg/dL Calcium 9.1 (8.4-10.2) mg/dL
--- NOTE | 2017-03-13 10:21 | XRay Report ---
CHEST TWO VIEWS: 03/13/17 CLINICAL: Atelectasis. COMPARISON: 03/09/17 FINDINGS: Stable chronic elevation of the left hemidiaphragm with an air distended stomach underlying the diaphragm. In addition, moderate dilatation of bowel loops underlying the diaphragm. A nasogastric tube tip is in the proximal stomach near the EG junction. Minimal left lower lobe atelectasis. The lungs are otherwise clear. Cardiomegaly with normal pulmonary vessels. A left PICC line tip is in the distal SVC. IMPRESSION: Chronic elevation of left hemidiaphragm with an air distended stomach underlying the diaphragm. Minimal left basal atelectasis.
[2017-03-13] MEDS: LEVAQUIN 500MG/100ML 500 MG/100 ML BAG IV SCH (10:30)
--- NOTE | 2017-03-13 12:35 | Progress Note ---
Assessment and Plan Assessment and plan: Small bowel obstruction with peritonitis. Continue per surgery. Patient s/p exploratory laparotomy for extensive lysis of adhesions yesterday, continue Levaquin and Flagyl. Continue NG tube suction. Patient reports flatus and bowel movement. Atrial fibrillation. Resumed Coumadin per cardiology. Continue beta cas IV until able to take by mouth. No ischemia by MPI in 2007. EF 50-55% by GUDELIA on 12/2015. 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 Outpatient follow-up or vascular surgery. Hypokalemia. Replete potassium as needed History Interval history: No new issues overnight. Patient complains of generalized weakness.. Hospitalist Physical - Constitutional Vitals: Temp Pulse Resp BP Pulse Ox 97.8 F 92 H 20 152/91 98 03/13/17 08:00 03/13/17 08:00 03/13/17 08:00 03/13/17 08:00 03/13/17 08:00 General appearance: Present: no acute distress - EENT Eyes: Present: PERRL, EOM intact ENT: hearing intact, clear oral mucosa, dentition normal - Neck Neck: Present: supple, normal ROM - Respiratory Respiratory effort: normal Respiratory: bilateral: CTA - Cardiovascular Rhythm: regular Heart Sounds: Present: S1 & S2. Absent: gallop, rub - Extremities Extremities: no ischemia, No edema, Full ROM - Abdominal General gastrointestinal: soft, non-tender, non-distended, normal bowel sounds - Integumentary Integumentary: Present: clear, warm, dry - Neurologic Neurologic: CNII-XII intact, moves all extremities Results - Labs CBC & Chem 7: 03/13/17 05:35 03/13/17 05:35 Labs: Laboratory Last Values WBC 9.8 K/mm3 (4.5-11.0) 03/13/17 05:35 RBC 3.85 M/mm3 (3.65-5.03) 03/13/17 05:35 Hgb 13.6 gm/dl (11.8-15.2) 03/13/17 05:35 Hct 39.3 % (35.5-45.6) 03/13/17 05:35 MCV 102 fl (84-94) H 03/13/17 05:35 MCH 35 pg (28-32) H 03/13/17 05:35 MCHC 35 % (32-34) H 03/13/17 05:35 RDW 14.0 % (13.2-15.2) 03/13/17 05:35 Plt Count 101 K/mm3 (140-440) L 03/13/17 05:35 Lymph % (Auto) 9.4 % (13.4-35.0) L 03/13/17 05:35 [place] % (Auto) 6.2 % (0.0-7.3) 03/13/17 05:35 Eos % (Auto) 1.1 % (0.0-4.3) 03/13/17 05:35 Baso % (Auto) 0.2 % (0.0-1.8) 03/13/17 05:35 Lymph # 0.9 K/mm3 (1.2-5.4) L 03/13/17 05:35 [place] # 0.6 K/mm3 (0.0-0.8) 03/13/17 05:35 Eos # 0.1 K/mm3 (0.0-0.4) 03/13/17 05:35 Baso # 0.0 K/mm3 (0.0-0.1) 03/13/17 05:35 Add Manual Diff Complete 03/05/17 05:12 Total Counted 100 03/05/17 05:12 Seg Neutrophils % 83.1 % (40.0-70.0) H 03/13/17 05:35 Seg Neuts % (Manual) 34.0 % (40.0-70.0) L 03/05/17 05:12 Band Neutrophils % 6.0 % 03/05/17 05:12 Lymphocytes % (Manual) 37.0 % (13.4-35.0) H 03/05/17 05:12 Reactive Lymphs % (Man) 0 % 03/05/17 05:12 Monocytes % (Manual) 20.0 % (0.0-7.3) H 03/05/17 05:12 Eosinophils % (Manual) 2.0 % (0.0-4.3) 03/05/17 05:12 Basophils % (Manual) 1.0 % (0.0-1.8) 03/05/17 05:12 Metamyelocytes % 0 % 03/05/17 05:12 Myelocytes % 0 % 03/05/17 05:12 Promyelocytes % 0 % 03/05/17 05:12 Blast Cells % 0 % 03/05/17 05:12 Nucleated RBC % Not Reportable 03/05/17 05:12 Seg Neutrophils # 8.1 K/mm3 (1.8-7.7) H 03/13/17 05:35 Seg Neutrophils # Man 1.0 K/mm3 (1.8-7.7) L 03/05/17 05:12 Band Neutrophils # 0.2 K/mm3 03/05/17 05:12 Lymphocytes # (Manual) 1.0 K/mm3 (1.2-5.4) L 03/05/17 05:12 Abs React Lymphs (Man) 0.0 K/mm3 03/05/17 05:12 Monocytes # (Manual) 0.6 K/mm3 (0.0-0.8) 03/05/17 05:12 Eosinophils # (Manual) 0.1 K/mm3 (0.0-0.4) 03/05/17 05:12 Basophils # (Manual) 0.0 K/mm3 (0.0-0.1) 03/05/17 05:12 Metamyelocytes # 0.0 K/mm3 03/05/17 05:12 Myelocytes # 0.0 K/mm3 03/05/17 05:12 Promyelocytes # 0.0 K/mm3 03/05/17 05:12 Blast Cells # 0.0 K/mm3 03/05/17 05:12 WBC Morphology Not Reportable 03/05/17 05:12 Hypersegmented Neuts Not Reportable 03/05/17 05:12 Hyposegmented Neuts Not Reportable 03/05/17 05:12 Hypogranular Neuts Not Reportable 03/05/17 05:12 Smudge Cells Not Reportable 03/05/17 05:12 Toxic Granulation Not Reportable 03/05/17 05:12 Toxic Vacuolation Not Reportable 03/05/17 05:12 Dohle Bodies Not Reportable 03/05/17 05:12 Pelger-Huet Anomaly Not Reportable 03/05/17 05:12 Jack Rods Not Reportable 03/05/17 05:12 Platelet Estimate Consistent w auto 03/05/17 05:12 Clumped Platelets Not Reportable 03/05/17 05:12 Plt Clumps, EDTA Not Reportable 03/05/17 05:12 Large Platelets Not Reportable 03/05/17 05:12 Giant Platelets Not Reportable 03/05/17 05:12 Platelet Satelliting Not Reportable 03/05/17 05:12 Plt Morphology Comment Not Reportable 03/05/17 05:12 RBC Morphology Normal 03/05/17 05:12 Dimorphic RBCs Not Reportable 03/05/17 05:12 Polychromasia Not Reportable 03/05/17 05:12 Hypochromasia Not Reportable 03/05/17 05:12 Poikilocytosis Not Reportable 03/05/17 05:12 Anisocytosis Not Reportable 03/05/17 05:12 Microcytosis Not Reportable 03/05/17 05:12 Macrocytosis Not Reportable 03/05/17 05:12 Spherocytes Not Reportable 03/05/17 05:12 Pappenheimer Bodies Not Reportable 03/05/17 05:12 Sickle Cells Not Reportable 03/05/17 05:12 Target Cells Not Reportable 03/05/17 05:12 Tear Drop Cells Not Reportable 03/05/17 05:12 Ovalocytes Not Reportable 03/05/17 05:12 Helmet Cells Not Reportable 03/05/17 05:12 [place] Bodies Not Reportable 03/05/17 05:12 [place] Rings Not Reportable 03/05/17 05:12 [place] Cells Not Reportable 03/05/17 05:12 Bite Cells Not Reportable 03/05/17 05:12 Crenated Cell Not Reportable 03/05/17 05:12 Elliptocytes Not Reportable 03/05/17 05:12 Acanthocytes (Spur) Not Reportable 03/05/17 05:12 Rouleaux Not Reportable 03/05/17 05:12 Hemoglobin C Crystals Not Reportable 03/05/17 05:12 Schistocytes Not Reportable 03/05/17 05:12 Malaria parasites Not Reportable 03/05/17 05:12 Asif Bodies Not Reportable 03/05/17 05:12 Hem Pathologist Commnt No 03/05/17 05:12 PT 18.6 Sec. (12.2-14.9) H 03/09/17 14:42 INR 1.47 (0.87-1.13) H 03/09/17 14:42 APTT 32.2 Sec. (24.2-36.6) 03/09/17 14:42 Sodium 139 mmol/L (137-145) 03/13/17 05:35 Potassium 4.0 mmol/L (3.6-5.0) 03/13/17 05:35 Chloride 100.7 mmol/L (98-107) 03/13/17 05:35 Carbon Dioxide 31 mmol/L (22-30) H 03/13/17 05:35 Anion Gap 11 mmol/L 03/13/17 05:35 BUN 20 mg/dL (9-20) 03/13/17 05:35 Creatinine 0.7 mg/dL (0.8-1.5) L 03/13/17 05:35 Estimated GFR > 60 ml/min 03/13/17 05:35 BUN/Creatinine Ratio 29 % 03/13/17 05:35 Glucose 119 mg/dL (75-100) H 03/13/17 05:35 POC Glucose 123 (70-105) H 03/13/17 11:50 Lactic Acid 2.00 mmol/L (0.7-2.0) 03/04/17 10:38 Calcium 9.1 mg/dL (8.4-10.2) 03/13/17 05:35 Phosphorus 2.30 mg/dL (2.5-4.5) L 03/13/17 05:35 Magnesium 1.80 mg/dL (1.7-2.3) 03/13/17 05:35 Total Bilirubin 0.60 mg/dL (0.1-1.2) 03/11/17 07:30 Direct Bilirubin < 0.2 mg/dL (0-0.2) 03/03/17 16:11 Indirect Bilirubin 0.8 mg/dL 03/03/17 16:11 AST 12 units/L (5-40) 03/11/17 07:30 ALT 6 units/L (7-56) L 03/11/17 07:30 Alkaline Phosphatase 41 units/L (35-129) 03/11/17 07:30 Total Protein 5.6 g/dL (6.3-8.2) L 03/11/17 07:30 Albumin 2.6 g/dL (3.9-5) L 03/11/17 07:30 Albumin/Globulin Ratio 0.9 % 03/11/17 07:30 Triglycerides 62 mg/dL (2-149) 03/11/17 07:30 Amylase 49 units/L (27-131) 03/05/17 05:12 Lipase 16 units/L (13-60) 03/03/17 16:11 Urine Color [place] (Yellow) 03/04/17 12:08 Urine Turbidity Clear (Clear) 03/04/17 12:08 Urine pH 5.0 (5.0-7.0) 03/04/17 12:08 Ur Specific [place] 1.056 (1.003-1.030) H 03/04/17 12:08 Urine Protein 100 mg/dl mg/dL (Negative) 03/04/17 12:08 Urine Glucose (UA) Neg mg/dL (Negative) 03/04/17 12:08 Urine Ketones 20 mg/dL (Negative) 03/04/17 12:08 Urine Blood Mod (Negative) 03/04/17 12:08 Urine Nitrite Neg (Negative) 03/04/17 12:08 Urine Bilirubin Neg (Negative) 03/04/17 12:08 Urine Urobilinogen < 2.0 mg/dL (<2.0) 03/04/17 12:08 Ur Leukocyte Esterase Neg (Negative) 03/04/17 12:08 Urine WBC (Auto) 4.0 /HPF (0.0-6.0) 03/04/17 12:08 Urine RBC (Auto) 19.0 /HPF (0.0-6.0) 03/04/17 12:08 U Epithel Cells (Auto) 1.0 /HPF (0-13.0) 03/04/17 12:08 Urine Mucus 3+ /HPF 03/04/17 12:08 Blood Type O POSITIVE 03/04/17 14:21
[2017-03-13] MEDS: PROVENTIL IH SCH ×2 (13:12→20:01)
[2017-03-13] MEDS ORDERED: TPN ADULT 2,016 ML IV SCH (20:00)
[2017-03-14] MEDS: LOPRESSOR IV SCH ×4 (01:32→19:10)
[2017-03-14 06:43] LABS: Anion Gap 12 mmol/L; BUN/Creatinine Ratio 35; Blood Urea Nitrogen 21 mg/dL (9-20); Carbon Dioxide 30 mmol/L (22-30); Chloride 99.4 mmol/L (98-107); Glucose 105 mg/dL (75-100); Potassium 4.4 mmol/L (3.6-5.0); Sodium 137 mmol/L (137-145)
[2017-03-14] MEDS: PROVENTIL IH SCH ×4 (07:22→20:56)
--- NOTE | 2017-03-14 09:23 | Progress Note ---
Assessment and Plan 1. Small bowel obstruction status post surgery for lysis of adhesions. 2. Chronic atrial fibrillation 3. Right common iliac artery aneurysm 4.1 cm. 4. Essential hypertension Plan. Cardiac-mcmanus stable resume Coumadin and diltiazem when patient starts oral intake. Mean while will anticoagulate with lovenox or Heparin. Follow-up PT INR checked in the office. Subjective Date of service: 03/14/17 Principal diagnosis: small bowel obstruction Interval history: No cardiac symptoms. Still has NGT to suction Objective Vital Signs Temp Pulse Pulse Pulse Resp Resp BP 03/14/17 09:05 03/14/17 09:04 84 18 03/14/17 07:55 97.7 F 73 20 03/14/17 07:45 83 18 03/14/17 06:22 98 H 128/90 03/14/17 01:32 109 H 141/100 03/14/17 01:18 97.9 F 109 H 20 03/13/17 21:45 18 03/13/17 20:55 98.0 F 102 H 94 H 03/13/17 20:03 03/13/17 20:00 90 03/13/17 19:00 81 13 03/13/17 18:49 108 H 136/86 03/13/17 16:00 98.1 F 101 H 20 03/13/17 13:30 03/13/17 13:20 90 16 03/13/17 12:59 118 H 154/93 03/13/17 12:00 98.1 F 94 H 20 03/13/17 10:00 108 H BP Pulse Ox 03/14/17 09:05 98 03/14/17 09:04 03/14/17 07:55 140/92 96 03/14/17 07:45 03/14/17 06:22 03/14/17 01:32 03/14/17 01:18 141/100 98 03/13/17 21:45 03/13/17 20:55 146/89 03/13/17 20:03 100 03/13/17 20:00 03/13/17 19:00 03/13/17 18:49 03/13/17 16:00 136/86 95 03/13/17 13:30 98 03/13/17 13:20 03/13/17 12:59 03/13/17 12:00 154/93 94 03/13/17 10:00 - Physical Examination General: No Apparent Distress HEENT: Positive: PERRL Neck: Positive: neck supple. Negative: JVD/HJR Cardiac: Positive: Irregularly Regular, S1/S2, PMI, Dilated, Laterally Displaced Lungs: Positive: clear to auscultation, No Wheeze, Rales, Rhonchi Neuro: Positive: Grossly Intact Abdomen: Positive: Soft Extremities: Present: normal - Labs and Meds Comprehensive Metabolic Panel 03/14/17 Range/Units 06:00 Sodium 137 (137-145) mmol/L Potassium 4.4 (3.6-5.0) mmol/L Chloride 99.4 (98-107) mmol/L Carbon Dioxide 30 (22-30) mmol/L BUN 21 H (9-20) mg/dL Creatinine 0.6 L (0.8-1.5) mg/dL Glucose 105 H (75-100) mg/dL Calcium 9.0 (8.4-10.2) mg/dL - Telemetry EKG Rhythm: Atrial Fibrillation
[2017-03-14 10:21] LABS: Basophils % (Auto) 0.4 % (0.0-1.8); Eosinophils % (Auto) 1.2 % (0.0-4.3); Hematocrit 41.4 % (35.5-45.6); Hemoglobin 13.8 gm/dl (11.8-15.2); Mean Corpuscular HGB Conc 34 % (32-34); Mean Corpuscular Hemoglobin 35 pg (28-32); Mean Corpuscular Volume 103 fl (84-94); Red Blood Count 4.01 M/mm3 (3.65-5.03); Red Cell Distribution Width 13.9 % (13.2-15.2); White Blood Count 9.7 K/mm3 (4.5-11.0)
[2017-03-14] MEDS: PEPCID IV SCH ×2 (10:27→22:21)
[2017-03-14] MEDS: LEVAQUIN 500MG/100ML 500 MG/100 ML BAG IV SCH (10:27)
[2017-03-14 10:55] LABS: Platelet Count 102 K/mm3 (140-440)
--- NOTE | 2017-03-14 11:01 | Progress Note ---
Assessment and Plan Assessment and plan: Small bowel obstruction with peritonitis. Continue per surgery. Patient s/p exploratory laparotomy for extensive lysis of adhesions yesterday, continue Levaquin and Flagyl. Continue NG tube suction prior surgery. Ambulate as tolerated. Atrial fibrillation. Resumed Coumadin per cardiology. Continue beta cas IV until able to take by mouth. No ischemia by MPI in 2007. EF 50-55% by GUDELIA on 12/2015. 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 Outpatient follow-up or vascular surgery. Hypokalemia. Replete potassium as needed History Interval history: No new issues overnight. Patient complains of generalized weakness.. Hospitalist Physical - Constitutional Vitals: Temp Pulse Resp BP Pulse Ox 97.7 F 84 18 140/92 98 03/14/17 07:55 03/14/17 09:04 03/14/17 09:04 03/14/17 07:55 03/14/17 09:05 General appearance: Present: no acute distress - EENT Eyes: Present: PERRL, EOM intact ENT: hearing intact, clear oral mucosa, dentition normal - Neck Neck: Present: supple, normal ROM - Respiratory Respiratory effort: normal Respiratory: bilateral: CTA - Cardiovascular Rhythm: regular Heart Sounds: Present: S1 & S2. Absent: gallop, rub - Extremities Extremities: no ischemia, No edema, Full ROM - Abdominal General gastrointestinal: soft, non-tender, non-distended, normal bowel sounds - Integumentary Integumentary: Present: clear, warm, dry - Neurologic Neurologic: CNII-XII intact, moves all extremities Results - Labs CBC & Chem 7: 03/14/17 10:04 03/14/17 06:00 Labs: Laboratory Last Values WBC 9.7 K/mm3 (4.5-11.0) 03/14/17 10:04 RBC 4.01 M/mm3 (3.65-5.03) 03/14/17 10:04 Hgb 13.8 gm/dl (11.8-15.2) 03/14/17 10:04 Hct 41.4 % (35.5-45.6) 03/14/17 10:04 MCV 103 fl (84-94) H 03/14/17 10:04 MCH 35 pg (28-32) H 03/14/17 10:04 MCHC 34 % (32-34) 03/14/17 10:04 RDW 13.9 % (13.2-15.2) 03/14/17 10:04 Plt Count 102 K/mm3 (140-440) L 03/14/17 10:04 Lymph % (Auto) 11.0 % (13.4-35.0) L 03/14/17 10:04 [place] % (Auto) 6.0 % (0.0-7.3) 03/14/17 10:04 Eos % (Auto) 1.2 % (0.0-4.3) 03/14/17 10:04 Baso % (Auto) 0.4 % (0.0-1.8) 03/14/17 10:04 Lymph # 1.1 K/mm3 (1.2-5.4) L 03/14/17 10:04 [place] # 0.6 K/mm3 (0.0-0.8) 03/14/17 10:04 Eos # 0.1 K/mm3 (0.0-0.4) 03/14/17 10:04 Baso # 0.0 K/mm3 (0.0-0.1) 03/14/17 10:04 Add Manual Diff Complete 03/05/17 05:12 Total Counted 100 03/05/17 05:12 Seg Neutrophils % 81.4 % (40.0-70.0) H 03/14/17 10:04 Seg Neuts % (Manual) 34.0 % (40.0-70.0) L 03/05/17 05:12 Band Neutrophils % 6.0 % 03/05/17 05:12 Lymphocytes % (Manual) 37.0 % (13.4-35.0) H 03/05/17 05:12 Reactive Lymphs % (Man) 0 % 03/05/17 05:12 Monocytes % (Manual) 20.0 % (0.0-7.3) H 03/05/17 05:12 Eosinophils % (Manual) 2.0 % (0.0-4.3) 03/05/17 05:12 Basophils % (Manual) 1.0 % (0.0-1.8) 03/05/17 05:12 Metamyelocytes % 0 % 03/05/17 05:12 Myelocytes % 0 % 03/05/17 05:12 Promyelocytes % 0 % 03/05/17 05:12 Blast Cells % 0 % 03/05/17 05:12 Nucleated RBC % Not Reportable 03/05/17 05:12 Seg Neutrophils # 7.9 K/mm3 (1.8-7.7) H 03/14/17 10:04 Seg Neutrophils # Man 1.0 K/mm3 (1.8-7.7) L 03/05/17 05:12 Band Neutrophils # 0.2 K/mm3 03/05/17 05:12 Lymphocytes # (Manual) 1.0 K/mm3 (1.2-5.4) L 03/05/17 05:12 Abs React Lymphs (Man) 0.0 K/mm3 03/05/17 05:12 Monocytes # (Manual) 0.6 K/mm3 (0.0-0.8) 03/05/17 05:12 Eosinophils # (Manual) 0.1 K/mm3 (0.0-0.4) 03/05/17 05:12 Basophils # (Manual) 0.0 K/mm3 (0.0-0.1) 03/05/17 05:12 Metamyelocytes # 0.0 K/mm3 03/05/17 05:12 Myelocytes # 0.0 K/mm3 03/05/17 05:12 Promyelocytes # 0.0 K/mm3 03/05/17 05:12 Blast Cells # 0.0 K/mm3 03/05/17 05:12 WBC Morphology Not Reportable 03/05/17 05:12 Hypersegmented Neuts Not Reportable 03/05/17 05:12 Hyposegmented Neuts Not Reportable 03/05/17 05:12 Hypogranular Neuts Not Reportable 03/05/17 05:12 Smudge Cells Not Reportable 03/05/17 05:12 Toxic Granulation Not Reportable 03/05/17 05:12 Toxic Vacuolation Not Reportable 03/05/17 05:12 Dohle Bodies Not Reportable 03/05/17 05:12 [place]uet Anomaly Not Reportable 03/05/17 05:12 Jack Rods Not Reportable 03/05/17 05:12 Platelet Estimate Consistent w auto 03/05/17 05:12 Clumped Platelets Not Reportable 03/05/17 05:12 Plt Clumps, EDTA Not Reportable 03/05/17 05:12 Large Platelets Not Reportable 03/05/17 05:12 Giant Platelets Not Reportable 03/05/17 05:12 Platelet Satelliting Not Reportable 03/05/17 05:12 Plt Morphology Comment Not Reportable 03/05/17 05:12 RBC Morphology Normal 03/05/17 05:12 Dimorphic RBCs Not Reportable 03/05/17 05:12 Polychromasia Not Reportable 03/05/17 05:12 Hypochromasia Not Reportable 03/05/17 05:12 Poikilocytosis Not Reportable 03/05/17 05:12 Anisocytosis Not Reportable 03/05/17 05:12 Microcytosis Not Reportable 03/05/17 05:12 Macrocytosis Not Reportable 03/05/17 05:12 Spherocytes Not Reportable 03/05/17 05:12 Pappenheimer Bodies Not Reportable 03/05/17 05:12 Sickle Cells Not Reportable 03/05/17 05:12 Target Cells Not Reportable 03/05/17 05:12 Tear Drop Cells Not Reportable 03/05/17 05:12 Ovalocytes Not Reportable 03/05/17 05:12 Helmet Cells Not Reportable 03/05/17 05:12 [place] Bodies Not Reportable 03/05/17 05:12 [place] Rings Not Reportable 03/05/17 05:12 [place] Cells Not Reportable 03/05/17 05:12 Bite Cells Not Reportable 03/05/17 05:12 Crenated Cell Not Reportable 03/05/17 05:12 Elliptocytes Not Reportable 03/05/17 05:12 Acanthocytes (Spur) Not Reportable 03/05/17 05:12 Rouleaux Not Reportable 03/05/17 05:12 Hemoglobin C Crystals Not Reportable 03/05/17 05:12 Schistocytes Not Reportable 03/05/17 05:12 Malaria parasites Not Reportable 03/05/17 05:12 Asif Bodies Not Reportable 03/05/17 05:12 Hem Pathologist Commnt No 03/05/17 05:12 PT 18.6 Sec. (12.2-14.9) H 03/09/17 14:42 INR 1.47 (0.87-1.13) H 03/09/17 14:42 APTT 32.2 Sec. (24.2-36.6) 03/09/17 14:42 Sodium 137 mmol/L (137-145) 03/14/17 06:00 Potassium 4.4 mmol/L (3.6-5.0) 03/14/17 06:00 Chloride 99.4 mmol/L (98-107) 03/14/17 06:00 Carbon Dioxide 30 mmol/L (22-30) 03/14/17 06:00 Anion Gap 12 mmol/L 03/14/17 06:00 BUN 21 mg/dL (9-20) H 03/14/17 06:00 Creatinine 0.6 mg/dL (0.8-1.5) L 03/14/17 06:00 Estimated GFR > 60 ml/min 03/14/17 06:00 BUN/Creatinine Ratio 35 % 03/14/17 06:00 Glucose 105 mg/dL (75-100) H 03/14/17 06:00 POC Glucose 115 (70-105) H 03/14/17 06:00 Lactic Acid 2.00 mmol/L (0.7-2.0) 03/04/17 10:38 Calcium 9.0 mg/dL (8.4-10.2) 03/14/17 06:00 Phosphorus 2.90 mg/dL (2.5-4.5) D 03/14/17 06:00 Magnesium 1.80 mg/dL (1.7-2.3) 03/14/17 06:00 Total Bilirubin 0.60 mg/dL (0.1-1.2) 03/11/17 07:30 Direct Bilirubin < 0.2 mg/dL (0-0.2) 03/03/17 16:11 Indirect Bilirubin 0.8 mg/dL 03/03/17 16:11 AST 12 units/L (5-40) 03/11/17 07:30 ALT 6 units/L (7-56) L 03/11/17 07:30 Alkaline Phosphatase 41 units/L (35-129) 03/11/17 07:30 Total Protein 5.6 g/dL (6.3-8.2) L 03/11/17 07:30 Albumin 2.6 g/dL (3.9-5) L 03/11/17 07:30 Albumin/Globulin Ratio 0.9 % 03/11/17 07:30 Triglycerides 62 mg/dL (2-149) 03/11/17 07:30 Amylase 49 units/L (27-131) 03/05/17 05:12 Lipase 16 units/L (13-60) 03/03/17 16:11 Urine Color [place] (Yellow) 03/04/17 12:08 Urine Turbidity Clear (Clear) 03/04/17 12:08 Urine pH 5.0 (5.0-7.0) 03/04/17 12:08 Ur Specific [place] 1.056 (1.003-1.030) H 03/04/17 12:08 Urine Protein 100 mg/dl mg/dL (Negative) 03/04/17 12:08 Urine Glucose (UA) Neg mg/dL (Negative) 03/04/17 12:08 Urine Ketones 20 mg/dL (Negative) 03/04/17 12:08 Urine Blood Mod (Negative) 03/04/17 12:08 Urine Nitrite Neg (Negative) 03/04/17 12:08 Urine Bilirubin Neg (Negative) 03/04/17 12:08 Urine Urobilinogen < 2.0 mg/dL (<2.0) 03/04/17 12:08 Ur Leukocyte Esterase Neg (Negative) 03/04/17 12:08 Urine WBC (Auto) 4.0 /HPF (0.0-6.0) 03/04/17 12:08 Urine RBC (Auto) 19.0 /HPF (0.0-6.0) 03/04/17 12:08 U Epithel Cells (Auto) 1.0 /HPF (0-13.0) 03/04/17 12:08 Urine Mucus 3+ /HPF 03/04/17 12:08 Blood Type O POSITIVE 03/04/17 14:21
[2017-03-14] MEDS ORDERED: TPN ADULT 2,016 ML IV SCH (20:00)
[2017-03-14] MEDS: ZOFRAN IV PRN (22:21)
[2017-03-15] MEDS: LOPRESSOR IV SCH ×4 (00:42→17:14)
[2017-03-15] MEDS: PROVENTIL IH SCH ×4 (06:16→19:37)
[2017-03-15 06:50] LABS: Basophils % (Auto) 0.4 % (0.0-1.8); Eosinophils % (Auto) 2.2 % (0.0-4.3); Hematocrit 38.8 % (35.5-45.6); Hemoglobin 13.3 gm/dl (11.8-15.2); Mean Corpuscular HGB Conc 34 % (32-34); Mean Corpuscular Hemoglobin 35 pg (28-32); Mean Corpuscular Volume 102 fl (84-94); Platelet Count 105 K/mm3 (140-440); Red Blood Count 3.79 M/mm3 (3.65-5.03); Red Cell Distribution Width 13.5 % (13.2-15.2); White Blood Count 8.7 K/mm3 (4.5-11.0)
[2017-03-15 07:05] LABS: Anion Gap 15 mmol/L; BUN/Creatinine Ratio 32; Blood Urea Nitrogen 19 mg/dL (9-20); Calcium 8.9 mg/dL (8.4-10.2); Carbon Dioxide 28 mmol/L (22-30); Chloride 100.7 mmol/L (98-107); Glucose 101 mg/dL (75-100); Potassium 4.7 mmol/L (3.6-5.0); Sodium 139 mmol/L (137-145)
--- NOTE | 2017-03-15 09:40 | Progress Note ---
Assessment and Plan Assessment and plan: Small bowel obstruction with peritonitis. Continue per surgery. Patient s/p exploratory laparotomy for extensive lysis of adhesions yesterday, continue Levaquin and Flagyl. Continue NG tube suction prior surgery. Ambulate as tolerated. Atrial fibrillation. Resumed Coumadin per cardiology. Continue beta cas IV until able to take by mouth. No ischemia by MPI in 2007. EF 50-55% by GUDELIA on 12/2015. 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 Outpatient follow-up or vascular surgery. Hypokalemia. Replete potassium as needed History Interval history: No new issues overnight. Patient complains of generalized weakness.. Hospitalist Physical - Constitutional Vitals: Temp Pulse Resp BP Pulse Ox 97.9 F 115 H 22 157/63 96 03/15/17 05:15 03/15/17 06:22 03/15/17 05:15 03/15/17 06:22 03/15/17 05:15 General appearance: Present: no acute distress - EENT Eyes: Present: PERRL, EOM intact ENT: hearing intact, clear oral mucosa, dentition normal - Neck Neck: Present: supple, normal ROM - Respiratory Respiratory effort: normal Respiratory: bilateral: CTA - Cardiovascular Rhythm: regular Heart Sounds: Present: S1 & S2. Absent: gallop, rub - Extremities Extremities: no ischemia, No edema, Full ROM - Abdominal General gastrointestinal: soft, non-tender, non-distended, normal bowel sounds - Integumentary Integumentary: Present: clear, warm, dry - Neurologic Neurologic: CNII-XII intact, moves all extremities Results - Labs CBC & Chem 7: 03/15/17 06:20 03/15/17 06:20 Labs: Laboratory Last Values WBC 8.7 K/mm3 (4.5-11.0) 03/15/17 06:20 RBC 3.79 M/mm3 (3.65-5.03) 03/15/17 06:20 Hgb 13.3 gm/dl (11.8-15.2) 03/15/17 06:20 Hct 38.8 % (35.5-45.6) 03/15/17 06:20 MCV 102 fl (84-94) H 03/15/17 06:20 MCH 35 pg (28-32) H 03/15/17 06:20 MCHC 34 % (32-34) 03/15/17 06:20 RDW 13.5 % (13.2-15.2) 03/15/17 06:20 Plt Count 105 K/mm3 (140-440) L 03/15/17 06:20 Lymph % (Auto) 11.6 % (13.4-35.0) L 03/15/17 06:20 [place] % (Auto) 7.2 % (0.0-7.3) 03/15/17 06:20 Eos % (Auto) 2.2 % (0.0-4.3) 03/15/17 06:20 Baso % (Auto) 0.4 % (0.0-1.8) 03/15/17 06:20 Lymph # 1.0 K/mm3 (1.2-5.4) L 03/15/17 06:20 [place] # 0.6 K/mm3 (0.0-0.8) 03/15/17 06:20 Eos # 0.2 K/mm3 (0.0-0.4) 03/15/17 06:20 Baso # 0.0 K/mm3 (0.0-0.1) 03/15/17 06:20 Add Manual Diff Complete 03/05/17 05:12 Total Counted 100 03/05/17 05:12 Seg Neutrophils % 78.6 % (40.0-70.0) H 03/15/17 06:20 Seg Neuts % (Manual) 34.0 % (40.0-70.0) L 03/05/17 05:12 Band Neutrophils % 6.0 % 03/05/17 05:12 Lymphocytes % (Manual) 37.0 % (13.4-35.0) H 03/05/17 05:12 Reactive Lymphs % (Man) 0 % 03/05/17 05:12 Monocytes % (Manual) 20.0 % (0.0-7.3) H 03/05/17 05:12 Eosinophils % (Manual) 2.0 % (0.0-4.3) 03/05/17 05:12 Basophils % (Manual) 1.0 % (0.0-1.8) 03/05/17 05:12 Metamyelocytes % 0 % 03/05/17 05:12 Myelocytes % 0 % 03/05/17 05:12 Promyelocytes % 0 % 03/05/17 05:12 Blast Cells % 0 % 03/05/17 05:12 Nucleated RBC % Not Reportable 03/05/17 05:12 Seg Neutrophils # 6.8 K/mm3 (1.8-7.7) 03/15/17 06:20 Seg Neutrophils # Man 1.0 K/mm3 (1.8-7.7) L 03/05/17 05:12 Band Neutrophils # 0.2 K/mm3 03/05/17 05:12 Lymphocytes # (Manual) 1.0 K/mm3 (1.2-5.4) L 03/05/17 05:12 Abs React Lymphs (Man) 0.0 K/mm3 03/05/17 05:12 Monocytes # (Manual) 0.6 K/mm3 (0.0-0.8) 03/05/17 05:12 Eosinophils # (Manual) 0.1 K/mm3 (0.0-0.4) 03/05/17 05:12 Basophils # (Manual) 0.0 K/mm3 (0.0-0.1) 03/05/17 05:12 Metamyelocytes # 0.0 K/mm3 03/05/17 05:12 Myelocytes # 0.0 K/mm3 03/05/17 05:12 Promyelocytes # 0.0 K/mm3 03/05/17 05:12 Blast Cells # 0.0 K/mm3 03/05/17 05:12 WBC Morphology Not Reportable 03/05/17 05:12 Hypersegmented Neuts Not Reportable 03/05/17 05:12 Hyposegmented Neuts Not Reportable 03/05/17 05:12 Hypogranular Neuts Not Reportable 03/05/17 05:12 Smudge Cells Not Reportable 03/05/17 05:12 Toxic Granulation Not Reportable 03/05/17 05:12 Toxic Vacuolation Not Reportable 03/05/17 05:12 Dohle Bodies Not Reportable 03/05/17 05:12 Pelger-Huet Anomaly Not Reportable 03/05/17 05:12 Jack Rods Not Reportable 03/05/17 05:12 Platelet Estimate Consistent w auto 03/05/17 05:12 Clumped Platelets Not Reportable 03/05/17 05:12 Plt Clumps, EDTA Not Reportable 03/05/17 05:12 Large Platelets Not Reportable 03/05/17 05:12 Giant Platelets Not Reportable 03/05/17 05:12 Platelet Satelliting Not Reportable 03/05/17 05:12 Plt Morphology Comment Not Reportable 03/05/17 05:12 RBC Morphology Normal 03/05/17 05:12 Dimorphic RBCs Not Reportable 03/05/17 05:12 Polychromasia Not Reportable 03/05/17 05:12 Hypochromasia Not Reportable 03/05/17 05:12 Poikilocytosis Not Reportable 03/05/17 05:12 Anisocytosis Not Reportable 03/05/17 05:12 Microcytosis Not Reportable 03/05/17 05:12 Macrocytosis Not Reportable 03/05/17 05:12 Spherocytes Not Reportable 03/05/17 05:12 Pappenheimer Bodies Not Reportable 03/05/17 05:12 Sickle Cells Not Reportable 03/05/17 05:12 Target Cells Not Reportable 03/05/17 05:12 Tear Drop Cells Not Reportable 03/05/17 05:12 Ovalocytes Not Reportable 03/05/17 05:12 Helmet Cells Not Reportable 03/05/17 05:12 [place] Bodies Not Reportable 03/05/17 05:12 [place] Rings Not Reportable 03/05/17 05:12 [place] Cells Not Reportable 03/05/17 05:12 Bite Cells Not Reportable 03/05/17 05:12 Crenated Cell Not Reportable 03/05/17 05:12 Elliptocytes Not Reportable 03/05/17 05:12 Acanthocytes (Spur) Not Reportable 03/05/17 05:12 Rouleaux Not Reportable 03/05/17 05:12 Hemoglobin C Crystals Not Reportable 03/05/17 05:12 Schistocytes Not Reportable 03/05/17 05:12 Malaria parasites Not Reportable 03/05/17 05:12 Asif Bodies Not Reportable 03/05/17 05:12 Hem Pathologist Commnt No 03/05/17 05:12 PT 18.6 Sec. (12.2-14.9) H 03/09/17 14:42 INR 1.47 (0.87-1.13) H 03/09/17 14:42 APTT 32.2 Sec. (24.2-36.6) 03/09/17 14:42 Sodium 139 mmol/L (137-145) 03/15/17 06:20 Potassium 4.7 mmol/L (3.6-5.0) 03/15/17 06:20 Chloride 100.7 mmol/L (98-107) 03/15/17 06:20 Carbon Dioxide 28 mmol/L (22-30) 03/15/17 06:20 Anion Gap 15 mmol/L 03/15/17 06:20 BUN 19 mg/dL (9-20) 03/15/17 06:20 Creatinine 0.6 mg/dL (0.8-1.5) L 03/15/17 06:20 Estimated GFR > 60 ml/min 03/15/17 06:20 BUN/Creatinine Ratio 32 % 03/15/17 06:20 Glucose 101 mg/dL (75-100) H 03/15/17 06:20 POC Glucose 99 (70-105) 03/15/17 00:19 Lactic Acid 2.00 mmol/L (0.7-2.0) 03/04/17 10:38 Calcium 8.9 mg/dL (8.4-10.2) 03/15/17 06:20 Phosphorus 2.90 mg/dL (2.5-4.5) 03/15/17 06:20 Magnesium 1.70 mg/dL (1.7-2.3) 03/15/17 06:20 Total Bilirubin 0.60 mg/dL (0.1-1.2) 03/11/17 07:30 Direct Bilirubin < 0.2 mg/dL (0-0.2) 03/03/17 16:11 Indirect Bilirubin 0.8 mg/dL 03/03/17 16:11 AST 12 units/L (5-40) 03/11/17 07:30 ALT 6 units/L (7-56) L 03/11/17 07:30 Alkaline Phosphatase 41 units/L (35-129) 03/11/17 07:30 Total Protein 5.6 g/dL (6.3-8.2) L 03/11/17 07:30 Albumin 2.6 g/dL (3.9-5) L 03/11/17 07:30 Albumin/Globulin Ratio 0.9 % 03/11/17 07:30 Triglycerides 62 mg/dL (2-149) 03/11/17 07:30 Amylase 49 units/L (27-131) 03/05/17 05:12 Lipase 16 units/L (13-60) 03/03/17 16:11 Urine Color Karlene (Yellow) 03/04/17 12:08 Urine Turbidity Clear (Clear) 03/04/17 12:08 Urine pH 5.0 (5.0-7.0) 03/04/17 12:08 Ur Specific [place] 1.056 (1.003-1.030) H 03/04/17 12:08 Urine Protein 100 mg/dl mg/dL (Negative) 03/04/17 12:08 Urine Glucose (UA) Neg mg/dL (Negative) 03/04/17 12:08 Urine Ketones 20 mg/dL (Negative) 03/04/17 12:08 Urine Blood Mod (Negative) 03/04/17 12:08 Urine Nitrite Neg (Negative) 03/04/17 12:08 Urine Bilirubin Neg (Negative) 03/04/17 12:08 Urine Urobilinogen < 2.0 mg/dL (<2.0) 03/04/17 12:08 Ur Leukocyte Esterase Neg (Negative) 03/04/17 12:08 Urine WBC (Auto) 4.0 /HPF (0.0-6.0) 03/04/17 12:08 Urine RBC (Auto) 19.0 /HPF (0.0-6.0) 03/04/17 12:08 U Epithel Cells (Auto) 1.0 /HPF (0-13.0) 03/04/17 12:08 Urine Mucus 3+ /HPF 03/04/17 12:08 Blood Type O POSITIVE 03/04/17 14:21
[2017-03-15] MEDS: PEPCID IV SCH ×2 (10:48→22:42)
--- NOTE | 2017-03-15 13:08 | Progress Note ---
Assessment and Plan Permanent atrial fibrillation On coumadin, digoxin and diltiazem as outpatient which are currently on hold. EF 50-55% by GUDELIA 12/2015 No ischemia by MPI 2007 Abdominal pain Small bowel obstruction on CT abdomen s/p exploratory lap and lysis of extensive adhesions. 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 Continue IV lopressor for rate control of chronic Afib. Subjective Date of service: 03/15/17 Principal diagnosis: small bowel obstruction Interval history: Patient remains nothing by mouth. Stable Afib on telemetry. Objective Vital Signs Temp Pulse Pulse Resp Resp BP BP 03/15/17 11:31 107 H 147/97 03/15/17 08:15 98.4 F 22 138/88 03/15/17 06:22 115 H 157/63 03/15/17 05:15 97.9 F 115 H 22 157/103 03/15/17 04:45 03/15/17 00:42 97 H 154/96 03/15/17 00:21 99.1 F 97 H 22 154/96 03/14/17 21:18 98 H 16 03/14/17 20:59 94 H 18 03/14/17 20:17 98.6 F 100 H 22 170/108 03/14/17 16:00 97.6 F 98 H 20 148/98 03/14/17 13:10 140 H 145/104 Pulse Ox 03/15/17 11:31 03/15/17 08:15 97 03/15/17 06:22 03/15/17 05:15 96 03/15/17 04:45 96 03/15/17 00:42 03/15/17 00:21 98 03/14/17 21:18 03/14/17 20:59 03/14/17 20:17 99 03/14/17 16:00 97 03/14/17 13:10 - Physical Examination General: No Apparent Distress HEENT: Positive: PERRL Cardiac: Positive: irregularly irregular - Labs and Meds CBC 03/15/17 Range/Units 06:20 WBC 8.7 (4.5-11.0) K/mm3 RBC 3.79 (3.65-5.03) M/mm3 Hgb 13.3 (11.8-15.2) gm/dl Hct 38.8 (35.5-45.6) % Plt Count 105 L (140-440) K/mm3 Lymph # 1.0 L (1.2-5.4) K/mm3 [place] # 0.6 (0.0-0.8) K/mm3 Eos # 0.2 (0.0-0.4) K/mm3 Baso # 0.0 (0.0-0.1) K/mm3 Comprehensive Metabolic Panel 03/15/17 Range/Units 06:20 Sodium 139 (137-145) mmol/L Potassium 4.7 (3.6-5.0) mmol/L Chloride 100.7 (98-107) mmol/L Carbon Dioxide 28 (22-30) mmol/L BUN 19 (9-20) mg/dL Creatinine 0.6 L (0.8-1.5) mg/dL Glucose 101 H (75-100) mg/dL Calcium 8.9 (8.4-10.2) mg/dL
--- NOTE | 2017-03-15 13:50 | Progress Note ---
Assessment and Plan POD #5 Pt feeling better. states + flatus. decreased NG drainage Abd decreased distention. minimal incisional tenderness hypoactive BS stable continue present care abd series in am Selected Entries 03/15/17 03/15/17 08:15 11:31 Temperature 98.4 F Pulse Rate 107 H Blood Pressure 147/97 Laboratory Tests 03/15/17 06:20 WBC 8.7 Hgb 13.3 Hct 38.8 Objective Vital Signs - 12hr 03/15/17 03/15/17 03/15/17 04:45 05:15 06:22 Temperature 97.9 F Pulse Rate 115 H 115 H Respiratory 22 Rate Blood Pressure 157/63 Blood Pressure 157/103 [Right] O2 Sat by Pulse 96 96 Oximetry 03/15/17 03/15/17 08:15 11:31 Temperature 98.4 F Pulse Rate 107 H Respiratory 22 Rate Blood Pressure 147/97 Blood Pressure 138/88 [Right] O2 Sat by Pulse 97 Oximetry - Labs 03/15/17 06:20 03/15/17 06:20 Diabetes panel 03/15/17 Range/Units 06:20 Sodium 139 (137-145) mmol/L Potassium 4.7 (3.6-5.0) mmol/L Chloride 100.7 (98-107) mmol/L Carbon Dioxide 28 (22-30) mmol/L BUN 19 (9-20) mg/dL Creatinine 0.6 L (0.8-1.5) mg/dL Glucose 101 H (75-100) mg/dL Calcium 8.9 (8.4-10.2) mg/dL Calcium panel 03/15/17 Range/Units 06:20 Calcium 8.9 (8.4-10.2) mg/dL Phosphorus 2.90 (2.5-4.5) mg/dL Pituitary panel 03/15/17 Range/Units 06:20 Sodium 139 (137-145) mmol/L Potassium 4.7 (3.6-5.0) mmol/L Chloride 100.7 (98-107) mmol/L Carbon Dioxide 28 (22-30) mmol/L BUN 19 (9-20) mg/dL Creatinine 0.6 L (0.8-1.5) mg/dL Glucose 101 H (75-100) mg/dL Calcium 8.9 (8.4-10.2) mg/dL Adrenal panel 03/15/17 Range/Units 06:20 Sodium 139 (137-145) mmol/L Potassium 4.7 (3.6-5.0) mmol/L Chloride 100.7 (98-107) mmol/L Carbon Dioxide 28 (22-30) mmol/L BUN 19 (9-20) mg/dL Creatinine 0.6 L (0.8-1.5) mg/dL Glucose 101 H (75-100) mg/dL Calcium 8.9 (8.4-10.2) mg/dL
[2017-03-15] MEDS ORDERED: INTRALIPID 20% 250 ML IV SCH (20:00)
[2017-03-15] MEDS ORDERED: TPN ADULT 2,016 ML IV SCH (20:00)
[2017-03-16] MEDS: LOPRESSOR IV SCH ×3 (01:30→12:30)
[2017-03-16 05:35] LABS: Blood Urea Nitrogen 15 mg/dL (9-20); Carbon Dioxide 26 mmol/L (22-30); Chloride 93.9 mmol/L (98-107)
[2017-03-16 06:12] LABS: Hematocrit 33.8 % (35.5-45.6); Hemoglobin 11.7 gm/dl (11.8-15.2); Mean Corpuscular HGB Conc 35 % (32-34); Mean Corpuscular Hemoglobin 36 pg (28-32); Mean Corpuscular Volume 105 fl (84-94); Red Blood Count 3.22 M/mm3 (3.65-5.03); White Blood Count 7.8 K/mm3 (4.5-11.0)
[2017-03-16 06:13] LABS: Basophils % (Auto) 0.4 % (0.0-1.8); Platelet Count 83 K/mm3 (140-440)
[2017-03-16 06:41] LABS: Sodium 130 mmol/L (137-145)
[2017-03-16 06:42] LABS: Anion Gap 15 mmol/L; BUN/Creatinine Ratio 19
[2017-03-16 06:43] LABS: Calcium 8.3 mg/dL (8.4-10.2); Glucose 118 mg/dL (75-100)
--- NOTE | 2017-03-16 09:47 | Progress Note ---
Assessment and Plan Assessment and plan: Small bowel obstruction with peritonitis. Continue per surgery. Patient s/p exploratory laparotomy for extensive lysis of adhesions yesterday, continue Levaquin and Flagyl. Continue NG tube suction prior surgery. Ambulate as tolerated. Advance diet per Surgery Atrial fibrillation. Resumed Coumadin per cardiology. Continue beta cas IV until able to take by mouth. No ischemia by MPI in 2007. EF 50-55% by GUDELIA on 12/2015. 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 Outpatient follow-up or vascular surgery. Vascular surgery (Dr. Navarrete) would like to be contacted at discharge to schedule Vascular testing/intervention. Hypokalemia. Replete potassium as needed History Interval history: No new issues overnight. Patient complains of generalized weakness.. Hospitalist Physical - Constitutional Vitals: Temp Pulse Resp BP Pulse Ox 98.1 F 91 H 22 140/97 99 03/16/17 07:18 03/16/17 07:18 03/16/17 07:18 03/16/17 07:18 03/16/17 07:18 General appearance: Present: no acute distress - EENT Eyes: Present: PERRL, EOM intact ENT: hearing intact, clear oral mucosa, dentition normal - Neck Neck: Present: supple, normal ROM - Respiratory Respiratory effort: normal Respiratory: bilateral: CTA - Cardiovascular Rhythm: regular Heart Sounds: Present: S1 & S2. Absent: gallop, rub - Extremities Extremities: no ischemia, No edema, Full ROM - Abdominal General gastrointestinal: soft, non-tender, non-distended, normal bowel sounds - Integumentary Integumentary: Present: clear, warm, dry - Neurologic Neurologic: CNII-XII intact, moves all extremities Results - Labs CBC & Chem 7: 03/16/17 05:00 03/16/17 05:00 Labs: Laboratory Last Values WBC 7.8 K/mm3 (4.5-11.0) 03/16/17 05:00 RBC 3.22 M/mm3 (3.65-5.03) L 03/16/17 05:00 Hgb 11.7 gm/dl (11.8-15.2) L 03/16/17 05:00 Hct 33.8 % (35.5-45.6) L 03/16/17 05:00 MCV 105 fl (84-94) H 03/16/17 05:00 MCH 36 pg (28-32) H 03/16/17 05:00 MCHC 35 % (32-34) H 03/16/17 05:00 RDW 14.0 % (13.2-15.2) 03/16/17 05:00 Plt Count 83 K/mm3 (140-440) L 03/16/17 05:00 Lymph % (Auto) 8.8 % (13.4-35.0) L 03/16/17 05:00 [place] % (Auto) 5.9 % (0.0-7.3) 03/16/17 05:00 Eos % (Auto) 3.0 % (0.0-4.3) 03/16/17 05:00 Baso % (Auto) 0.4 % (0.0-1.8) 03/16/17 05:00 Lymph # 0.8 K/mm3 (1.2-5.4) L 03/16/17 05:00 [place] # 0.5 K/mm3 (0.0-0.8) 03/16/17 05:00 Eos # 0.3 K/mm3 (0.0-0.4) 03/16/17 05:00 Baso # 0.0 K/mm3 (0.0-0.1) 03/16/17 05:00 Add Manual Diff Complete 03/05/17 05:12 Total Counted 100 03/05/17 05:12 Seg Neutrophils % 81.9 % (40.0-70.0) H 03/16/17 05:00 Seg Neuts % (Manual) 34.0 % (40.0-70.0) L 03/05/17 05:12 Band Neutrophils % 6.0 % 03/05/17 05:12 Lymphocytes % (Manual) 37.0 % (13.4-35.0) H 03/05/17 05:12 Reactive Lymphs % (Man) 0 % 03/05/17 05:12 Monocytes % (Manual) 20.0 % (0.0-7.3) H 03/05/17 05:12 Eosinophils % (Manual) 2.0 % (0.0-4.3) 03/05/17 05:12 Basophils % (Manual) 1.0 % (0.0-1.8) 03/05/17 05:12 Metamyelocytes % 0 % 03/05/17 05:12 Myelocytes % 0 % 03/05/17 05:12 Promyelocytes % 0 % 03/05/17 05:12 Blast Cells % 0 % 03/05/17 05:12 Nucleated RBC % Not Reportable 03/05/17 05:12 Seg Neutrophils # 7.4 K/mm3 (1.8-7.7) 03/16/17 05:00 Seg Neutrophils # Man 1.0 K/mm3 (1.8-7.7) L 03/05/17 05:12 Band Neutrophils # 0.2 K/mm3 03/05/17 05:12 Lymphocytes # (Manual) 1.0 K/mm3 (1.2-5.4) L 03/05/17 05:12 Abs React Lymphs (Man) 0.0 K/mm3 03/05/17 05:12 Monocytes # (Manual) 0.6 K/mm3 (0.0-0.8) 03/05/17 05:12 Eosinophils # (Manual) 0.1 K/mm3 (0.0-0.4) 03/05/17 05:12 Basophils # (Manual) 0.0 K/mm3 (0.0-0.1) 03/05/17 05:12 Metamyelocytes # 0.0 K/mm3 03/05/17 05:12 Myelocytes # 0.0 K/mm3 03/05/17 05:12 Promyelocytes # 0.0 K/mm3 03/05/17 05:12 Blast Cells # 0.0 K/mm3 03/05/17 05:12 WBC Morphology Not Reportable 03/05/17 05:12 Hypersegmented Neuts Not Reportable 03/05/17 05:12 Hyposegmented Neuts Not Reportable 03/05/17 05:12 Hypogranular Neuts Not Reportable 03/05/17 05:12 Smudge Cells Not Reportable 03/05/17 05:12 Toxic Granulation Not Reportable 03/05/17 05:12 Toxic Vacuolation Not Reportable 03/05/17 05:12 Dohle Bodies Not Reportable 03/05/17 05:12 Pelger-Huet Anomaly Not Reportable 03/05/17 05:12 Jack Rods Not Reportable 03/05/17 05:12 Platelet Estimate Consistent w auto 03/05/17 05:12 Clumped Platelets Not Reportable 03/05/17 05:12 Plt Clumps, EDTA Not Reportable 03/05/17 05:12 Large Platelets Not Reportable 03/05/17 05:12 Giant Platelets Not Reportable 03/05/17 05:12 Platelet Satelliting Not Reportable 03/05/17 05:12 Plt Morphology Comment Not Reportable 03/05/17 05:12 RBC Morphology Normal 03/05/17 05:12 Dimorphic RBCs Not Reportable 03/05/17 05:12 Polychromasia Not Reportable 03/05/17 05:12 Hypochromasia Not Reportable 03/05/17 05:12 Poikilocytosis Not Reportable 03/05/17 05:12 Anisocytosis Not Reportable 03/05/17 05:12 Microcytosis Not Reportable 03/05/17 05:12 Macrocytosis Not Reportable 03/05/17 05:12 Spherocytes Not Reportable 03/05/17 05:12 Pappenheimer Bodies Not Reportable 03/05/17 05:12 Sickle Cells Not Reportable 03/05/17 05:12 Target Cells Not Reportable 03/05/17 05:12 Tear Drop Cells Not Reportable 03/05/17 05:12 Ovalocytes Not Reportable 03/05/17 05:12 Helmet Cells Not Reportable 03/05/17 05:12 [place] Bodies Not Reportable 03/05/17 05:12 [place] Rings Not Reportable 03/05/17 05:12 Kaila Cells Not Reportable 03/05/17 05:12 Bite Cells Not Reportable 03/05/17 05:12 Crenated Cell Not Reportable 03/05/17 05:12 Elliptocytes Not Reportable 03/05/17 05:12 Acanthocytes (Spur) Not Reportable 03/05/17 05:12 Rouleaux Not Reportable 03/05/17 05:12 Hemoglobin C Crystals Not Reportable 03/05/17 05:12 Schistocytes Not Reportable 03/05/17 05:12 Malaria parasites Not Reportable 03/05/17 05:12 Asif Bodies Not Reportable 03/05/17 05:12 Hem Pathologist Commnt No 03/05/17 05:12 PT 18.6 Sec. (12.2-14.9) H 03/09/17 14:42 INR 1.47 (0.87-1.13) H 03/09/17 14:42 APTT 32.2 Sec. (24.2-36.6) 03/09/17 14:42 Sodium 130 mmol/L (137-145) L D 03/16/17 05:00 Potassium 5.0 mmol/L (3.6-5.0) 03/16/17 05:00 Chloride 93.9 mmol/L (98-107) L 03/16/17 05:00 Carbon Dioxide 26 mmol/L (22-30) 03/16/17 05:00 Anion Gap 15 mmol/L 03/16/17 05:00 BUN 15 mg/dL (9-20) 03/16/17 05:00 Creatinine 0.8 mg/dL (0.8-1.5) 03/16/17 05:00 Estimated GFR > 60 ml/min 03/16/17 05:00 BUN/Creatinine Ratio 19 % 03/16/17 05:00 Glucose 118 mg/dL (75-100) H 03/16/17 05:00 POC Glucose 121 (70-105) H 03/16/17 05:57 Lactic Acid 2.00 mmol/L (0.7-2.0) 03/04/17 10:38 Calcium 8.3 mg/dL (8.4-10.2) L 03/16/17 05:00 Phosphorus 2.90 mg/dL (2.5-4.5) 03/15/17 06:20 Magnesium 1.70 mg/dL (1.7-2.3) 03/15/17 06:20 Total Bilirubin 0.60 mg/dL (0.1-1.2) 03/11/17 07:30 Direct Bilirubin < 0.2 mg/dL (0-0.2) 03/03/17 16:11 Indirect Bilirubin 0.8 mg/dL 03/03/17 16:11 AST 12 units/L (5-40) 03/11/17 07:30 ALT 6 units/L (7-56) L 03/11/17 07:30 Alkaline Phosphatase 41 units/L (35-129) 03/11/17 07:30 Total Protein 5.6 g/dL (6.3-8.2) L 03/11/17 07:30 Albumin 2.6 g/dL (3.9-5) L 03/11/17 07:30 Albumin/Globulin Ratio 0.9 % 03/11/17 07:30 Triglycerides 62 mg/dL (2-149) 03/11/17 07:30 Amylase 49 units/L (27-131) 03/05/17 05:12 Lipase 16 units/L (13-60) 03/03/17 16:11 Urine Color Karlene (Yellow) 03/04/17 12:08 Urine Turbidity Clear (Clear) 03/04/17 12:08 Urine pH 5.0 (5.0-7.0) 03/04/17 12:08 Ur Specific [place] 1.056 (1.003-1.030) H 03/04/17 12:08 Urine Protein 100 mg/dl mg/dL (Negative) 03/04/17 12:08 Urine Glucose (UA) Neg mg/dL (Negative) 03/04/17 12:08 Urine Ketones 20 mg/dL (Negative) 03/04/17 12:08 Urine Blood Mod (Negative) 03/04/17 12:08 Urine Nitrite Neg (Negative) 03/04/17 12:08 Urine Bilirubin Neg (Negative) 03/04/17 12:08 Urine Urobilinogen < 2.0 mg/dL (<2.0) 03/04/17 12:08 Ur Leukocyte Esterase Neg (Negative) 03/04/17 12:08 Urine WBC (Auto) 4.0 /HPF (0.0-6.0) 03/04/17 12:08 Urine RBC (Auto) 19.0 /HPF (0.0-6.0) 03/04/17 12:08 U Epithel Cells (Auto) 1.0 /HPF (0-13.0) 03/04/17 12:08 Urine Mucus 3+ /HPF 03/04/17 12:08 Blood Type O POSITIVE 03/04/17 14:21
[2017-03-16] MEDS: PROVENTIL IH SCH ×3 (09:52→21:26)
--- NOTE | 2017-03-16 11:10 | Progress Note ---
Assessment and Plan Permanent atrial fibrillation On coumadin, digoxin and diltiazem as outpatient which are currently on hold. EF 50-55% by GUDELIA 12/2015 No ischemia by MPI 2007 Abdominal pain Small bowel obstruction on CT abdomen s/p exploratory lap and lysis of extensive adhesions. 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 Continue IV lopressor for rate control of chronic Afib. On discharge, if okay by surgery, we would resume oral anticoagulation therapy, with Coumadin initially dosed at 2.5 mg daily. Subjective Date of service: 03/16/17 Principal diagnosis: small bowel obstruction Interval history: No cardiac complaints. Objective Vital Signs Temp Pulse Pulse Resp Resp BP BP 03/16/17 10:02 102 H 18 03/16/17 09:53 105 H 20 03/16/17 09:52 03/16/17 07:18 98.1 F 91 H 22 140/97 03/16/17 06:51 87 137/87 03/16/17 05:01 98.5 F 87 20 137/87 03/16/17 01:30 95 H 135/95 03/16/17 00:24 98.4 F 95 H 20 136/95 03/15/17 19:56 98.5 F 115 H 20 134/94 03/15/17 19:49 111 H 20 03/15/17 19:39 03/15/17 19:38 113 H 20 03/15/17 16:26 97.8 F 110 H 3 L 144/87 03/15/17 16:19 144/87 03/15/17 11:31 107 H 147/97 03/15/17 11:23 147/97 Pulse Ox 03/16/17 10:02 03/16/17 09:53 03/16/17 09:52 100 03/16/17 07:18 99 03/16/17 06:51 03/16/17 05:01 98 03/16/17 01:30 03/16/17 00:24 97 03/15/17 19:56 98 03/15/17 19:49 03/15/17 19:39 98 03/15/17 19:38 03/15/17 16:26 98 03/15/17 16:19 03/15/17 11:31 03/15/17 11:23 - Physical Examination General: No Apparent Distress HEENT: Positive: PERRL Cardiac: Positive: irregularly irregular Extremities: Present: normal - Labs and Meds CBC 03/16/17 Range/Units 05:00 WBC 7.8 (4.5-11.0) K/mm3 RBC 3.22 L (3.65-5.03) M/mm3 Hgb 11.7 L (11.8-15.2) gm/dl Hct 33.8 L (35.5-45.6) % Plt Count 83 L (140-440) K/mm3 Lymph # 0.8 L (1.2-5.4) K/mm3 [place] # 0.5 (0.0-0.8) K/mm3 Eos # 0.3 (0.0-0.4) K/mm3 Baso # 0.0 (0.0-0.1) K/mm3 Comprehensive Metabolic Panel 03/16/17 Range/Units 05:00 Sodium 130 L D (137-145) mmol/L Potassium 5.0 (3.6-5.0) mmol/L Chloride 93.9 L (98-107) mmol/L Carbon Dioxide 26 (22-30) mmol/L BUN 15 (9-20) mg/dL Creatinine 0.8 (0.8-1.5) mg/dL Glucose 118 H (75-100) mg/dL Calcium 8.3 L (8.4-10.2) mg/dL
[2017-03-16] MEDS: PEPCID IV SCH ×2 (11:30→21:52)
--- NOTE | 2017-03-16 11:40 | XRay Report ---
ABDOMINAL SERIES: History: Small bowel obstruction. Compared to 03/10/17. A nasogastric tube terminates in the stomach. Recent abdominal surgery changes are noted. There is residual oral contrast throughout the colon. Small bowel dilatation has resolved or nearly resolved. The bowel gas pattern is near normal. There is no evidence for free air. Single view of the chest demonstrates mild cardiomegaly and clear lungs. IMPRESSION: Near normal intestinal gas pattern.
--- NOTE | 2017-03-16 14:07 | Progress Note ---
Assessment and Plan POD # 6 Pt feeling well. + flatus. HR up to 180 when attempts to ambulate Abd soft non tender Abd series - no evidence of obst. normal gas pattern stable - improving d/c ng keep npo x 24 hrs TPN adjustments for low Na, Cl & high K as per nutrition team d/c ike in am Selected Entries 03/16/17 03/16/17 07:18 10:02 Temperature 98.1 F Pulse Rate [AP 102 H Bilateral Throughout] Blood Pressure 140/97 Laboratory Tests 03/16/17 03/16/17 05:00 05:00 WBC 7.8 Hgb 11.7 L Hct 33.8 L Sodium 130 L D Potassium 5.0 Chloride 93.9 L BUN 15 Creatinine 0.8 Objective Vital Signs - 12hr 03/16/17 03/16/17 03/16/17 05:01 06:51 07:18 Temperature 98.5 F 98.1 F Pulse Rate 87 87 91 H Pulse Rate [AP Bilateral Throughout] Respiratory 20 22 Rate Respiratory Rate [AP Bilateral Throughout] Blood Pressure 137/87 137/87 140/97 O2 Sat by Pulse 98 99 Oximetry 03/16/17 03/16/17 03/16/17 09:52 09:53 10:02 Temperature Pulse Rate Pulse Rate [AP 105 H 102 H Bilateral Throughout] Respiratory Rate Respiratory 20 18 Rate [AP Bilateral Throughout] Blood Pressure O2 Sat by Pulse 100 Oximetry - Labs 03/16/17 05:00 03/16/17 05:00 Diabetes panel 03/16/17 Range/Units 05:00 Sodium 130 L D (137-145) mmol/L Potassium 5.0 (3.6-5.0) mmol/L Chloride 93.9 L (98-107) mmol/L Carbon Dioxide 26 (22-30) mmol/L BUN 15 (9-20) mg/dL Creatinine 0.8 (0.8-1.5) mg/dL Glucose 118 H (75-100) mg/dL Calcium 8.3 L (8.4-10.2) mg/dL Calcium panel 03/16/17 Range/Units 05:00 Calcium 8.3 L (8.4-10.2) mg/dL Pituitary panel 03/16/17 Range/Units 05:00 Sodium 130 L D (137-145) mmol/L Potassium 5.0 (3.6-5.0) mmol/L Chloride 93.9 L (98-107) mmol/L Carbon Dioxide 26 (22-30) mmol/L BUN 15 (9-20) mg/dL Creatinine 0.8 (0.8-1.5) mg/dL Glucose 118 H (75-100) mg/dL Calcium 8.3 L (8.4-10.2) mg/dL Adrenal panel 03/16/17 Range/Units 05:00 Sodium 130 L D (137-145) mmol/L Potassium 5.0 (3.6-5.0) mmol/L Chloride 93.9 L (98-107) mmol/L Carbon Dioxide 26 (22-30) mmol/L BUN 15 (9-20) mg/dL Creatinine 0.8 (0.8-1.5) mg/dL Glucose 118 H (75-100) mg/dL Calcium 8.3 L (8.4-10.2) mg/dL
--- NOTE | 2017-03-16 15:02 | Query- Nutrition ---
Dear Date: 03/16/17 Options Trader/CDS:Jerri Phone#:[phone] Exercise your independent professional judgment when responding to query. Questions asked do not imply a particular answer is desired or expected. We greatly appreciate your clarification on this issue. Clinical Documentation States: 81 year old male was admitted on 03/03/17 The H&P (Dr. Yin) states " Chief complaint: My stomach has been hurting Pt states that he has experienced abdominal pain " Hospitalist Progress Note( 03/16/17) states"Assessment and plan: Small bowel obstruction with peritonitis. " Clinical Findings Show: Albumin: 2.6 Please select the most appropriate option 3 [] Mild Malnutrition [] Mild - Moderate Malnutrition [x] Moderate - Severe Malnutrition [] Severe Malnutrition Serum Albumin 2.8 to 3.4 g/dl or Pre-albumin 5 to 17 mg/dl1,2 Inadequate nutritional intake1,2,3,4 NPO > 5 days Weight loss: 5% in 1 month or 7.5% in 3 months or 10% in 6 months1, 3,4 BMI 16 to 18.4 or Weight <90% of ideal body weight1,2,3,4 Serum Albumin < 2.8 g/ dl1,2 Lymphocytes < 1500/ L2 Inadequate nutritional intake3, high stress e.g. major trauma, sepsis,pancreatitis, sultana etc. Decubitus ulcers1,2, , skin breakdown2, easy hair pluckability2 Weight <80% standard for height2 Triceps skin fold <3 mm2 Mid-arm muscle circumference <15 cm2 Creatinine-height index <60% standard2 [ ] Cachexia [ ] Emaciated w/Malnutrition [ ] Other: [ ] Unable to determine [ ] Comment/Explanation: Present on Admission: [ x] Yes (Y) [ ] Clinically undeterminable (W) [ ] No (N) Please also document response in your Progress Notes and/or Discharge Summary and indicate if the condition was present on admission. MTDD
[2017-03-16] MEDS ORDERED: TPN ADULT 2,016 ML IV SCH (20:00)
[2017-03-17] MEDS: LOPRESSOR IV SCH ×5 (03:40→18:21)
[2017-03-17] MEDS: PROVENTIL IH SCH ×2 (07:37→14:59)
[2017-03-17 09:05] LABS: Basophils % (Auto) 0.7 % (0.0-1.8); Eosinophils % (Auto) 3.4 % (0.0-4.3); Hematocrit 36.5 % (35.5-45.6); Hemoglobin 12.8 gm/dl (11.8-15.2); Mean Corpuscular HGB Conc 35 % (32-34); Mean Corpuscular Hemoglobin 36 pg (28-32); Mean Corpuscular Volume 102 fl (84-94); Red Blood Count 3.57 M/mm3 (3.65-5.03); Red Cell Distribution Width 13.6 % (13.2-15.2); White Blood Count 6.5 K/mm3 (4.5-11.0)
[2017-03-17 09:06] LABS: Platelet Count 96 K/mm3 (140-440)
[2017-03-17 09:24] LABS: Anion Gap 11 mmol/L; BUN/Creatinine Ratio 28; Blood Urea Nitrogen 17 mg/dL (9-20); Calcium 8.7 mg/dL (8.4-10.2); Carbon Dioxide 30 mmol/L (22-30); Chloride 99.9 mmol/L (98-107); Glucose 111 mg/dL (75-100); Potassium 4.4 mmol/L (3.6-5.0); Sodium 136 mmol/L (137-145)
--- NOTE | 2017-03-17 10:21 | Progress Note ---
Assessment and Plan Permanent atrial fibrillation On coumadin, digoxin and diltiazem as outpatient which are currently on hold. EF 50-55% by GUDELIA 12/2015 No ischemia by MPI 2007 Abdominal pain Small bowel obstruction on CT abdomen s/p exploratory lap and lysis of extensive adhesions. 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 Continue IV lopressor for rate control of chronic Afib. Subjective Date of service: 03/17/17 Principal diagnosis: small bowel obstruction Interval history: Patient has no complaints. Remains NPO status. Stable Afib on telemetry. Objective Vital Signs Temp Pulse Pulse Resp Resp BP BP 03/17/17 08:00 98.9 F 99 H 18 120/80 03/17/17 07:59 101 H 03/17/17 07:46 106 H 18 03/17/17 07:38 90 18 03/17/17 07:37 03/17/17 05:22 104 H 117/82 03/17/17 05:21 97.4 F L 97 H 117/82 03/17/17 05:16 103 H 134/89 03/17/17 00:23 98.0 F 103 H 22 134/89 03/17/17 00:13 106 H 03/16/17 21:44 99 H 03/16/17 21:43 97.3 F L 100 H 157/97 03/16/17 21:33 94 H 18 03/16/17 21:23 91 H 20 03/16/17 16:30 97.3 F L 65 20 142/78 03/16/17 14:34 95 H 18 03/16/17 14:27 102 H 18 Pulse Ox 03/17/17 08:00 03/17/17 07:59 97 03/17/17 07:46 03/17/17 07:38 03/17/17 07:37 98 03/17/17 05:22 99 03/17/17 05:21 99 03/17/17 05:16 03/17/17 00:23 99 03/17/17 00:13 99 03/16/17 21:44 98 03/16/17 21:43 98 03/16/17 21:33 03/16/17 21:23 03/16/17 16:30 98 03/16/17 14:34 03/16/17 14:27 - Physical Examination General: No Apparent Distress HEENT: Positive: PERRL Cardiac: Positive: irregularly irregular Neuro: Positive: Grossly Intact, Weakness - Labs and Meds CBC 03/17/17 Range/Units 08:57 WBC 6.5 (4.5-11.0) K/mm3 RBC 3.57 L (3.65-5.03) M/mm3 Hgb 12.8 (11.8-15.2) gm/dl Hct 36.5 (35.5-45.6) % Plt Count 96 L (140-440) K/mm3 Lymph # 1.0 L (1.2-5.4) K/mm3 [place] # 0.4 (0.0-0.8) K/mm3 Eos # 0.2 (0.0-0.4) K/mm3 Baso # 0.0 (0.0-0.1) K/mm3 Comprehensive Metabolic Panel 03/17/17 Range/Units 08:57 Carbon Dioxide 30 (22-30) mmol/L BUN 17 (9-20) mg/dL Creatinine 0.6 L (0.8-1.5) mg/dL Glucose 111 H (75-100) mg/dL Calcium 8.7 (8.4-10.2) mg/dL
--- NOTE | 2017-03-17 11:31 | Progress Note ---
Assessment and Plan Pt feeling well. madeleine d/c of ng well. neg distention or nausea Abd soft, non tender labs as below. bmp- pending stable attempt cl liq diet Selected Entries 03/17/17 08:00 Temperature 98.9 F Pulse Rate 99 H Respiratory 18 Rate Blood Pressure 120/80 [Right] Laboratory Tests 03/16/17 03/17/17 05:00 08:57 WBC 6.5 Hgb 11.7 L 12.8 Hct 33.8 L 36.5 Objective Vital Signs - 12hr 03/17/17 03/17/17 03/17/17 00:13 00:23 05:16 Temperature 98.0 F Pulse Rate 106 H 103 H 103 H Pulse Rate [AP Bilateral Throughout] Respiratory 22 Rate Respiratory Rate [AP Bilateral Throughout] Blood Pressure 134/89 Blood Pressure 134/89 [Right] O2 Sat by Pulse 99 99 Oximetry 03/17/17 03/17/17 03/17/17 05:21 05:22 07:37 Temperature 97.4 F L Pulse Rate 97 H 104 H Pulse Rate [AP Bilateral Throughout] Respiratory Rate Respiratory Rate [AP Bilateral Throughout] Blood Pressure 117/82 117/82 Blood Pressure [Right] O2 Sat by Pulse 99 99 98 Oximetry 03/17/17 03/17/17 03/17/17 07:38 07:46 07:59 Temperature Pulse Rate 101 H Pulse Rate [AP 90 106 H Bilateral Throughout] Respiratory Rate Respiratory 18 18 Rate [AP Bilateral Throughout] Blood Pressure Blood Pressure [Right] O2 Sat by Pulse 97 Oximetry 03/17/17 08:00 Temperature 98.9 F Pulse Rate 99 H Pulse Rate [AP Bilateral Throughout] Respiratory 18 Rate Respiratory Rate [AP Bilateral Throughout] Blood Pressure Blood Pressure 120/80 [Right] O2 Sat by Pulse Oximetry - Labs 03/17/17 08:57 03/17/17 08:57 Diabetes panel 03/17/17 Range/Units 08:57 Carbon Dioxide 30 (22-30) mmol/L BUN 17 (9-20) mg/dL Creatinine 0.6 L (0.8-1.5) mg/dL Glucose 111 H (75-100) mg/dL Calcium 8.7 (8.4-10.2) mg/dL Calcium panel 03/17/17 Range/Units 08:57 Calcium 8.7 (8.4-10.2) mg/dL Phosphorus 2.60 (2.5-4.5) mg/dL Pituitary panel 03/17/17 Range/Units 08:57 Carbon Dioxide 30 (22-30) mmol/L BUN 17 (9-20) mg/dL Creatinine 0.6 L (0.8-1.5) mg/dL Glucose 111 H (75-100) mg/dL Calcium 8.7 (8.4-10.2) mg/dL Adrenal panel 03/17/17 Range/Units 08:57 Carbon Dioxide 30 (22-30) mmol/L BUN 17 (9-20) mg/dL Creatinine 0.6 L (0.8-1.5) mg/dL Glucose 111 H (75-100) mg/dL Calcium 8.7 (8.4-10.2) mg/dL
[2017-03-17] MEDS: PEPCID IV SCH ×2 (12:21→22:44)
--- NOTE | 2017-03-17 14:30 | Progress Note ---
Assessment and Plan Assessment and plan: Patient is 81-year-old man with history of A. fib on warfarin, hypertension, CHF , tobacco dependency, dyslipidemia and coronary artery disease who presented to the emergency Department at [facility] (first visit here-main doctors are at [facility] [place]) with nausea, vomiting and abdominal pains. 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 -Small bowel obstruction with peritonitis, poa -Sepsis due to peritionitis, poa: treated with abx -Acute hypoxic respiratory failure due to above, poa: wean off oxygen -Malignant hypertension: prn IV labetalol -Atrial fibrillation/aflutter with RVR on warfarin with therapeutic INR: reversed with 2units FFB and 5mg iv vitamin k on 03/04/17 for [address] surgery per Dr. Gong, we'll consult cardiology to manage, careful with history of heart failure, possibly will need IV heparin, consulted [facility] because they also go to [facility] [place]; therefore, they can review his [facility] [place] records and they are on-call today. 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: Vascular is following and recommends outpatient follow up 03/05/17: per Dr. Gong: Pt feeling better. states had small BM. some blood tinged drainage noted in NG, Abd - less distended, non tender, stable - slightly improving, cardiology & vasc surg eval noted, will start mineral oil thru NG x 48 hrs, f/u abd series in am. per Cardiology, Dr. 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 Initiate IV heparin if no surgery is planned in the near term Initiate rate control with IV lopressor as patient is NPO May proceed with abdominal surgery cardiac mcmanus - moderate perioperative cardiac risk" Unable to get bed in ICU yesterday, pt doing better today, cancelled 03/06/2017: Patient felt much better, less abdominal distention without pains now. Abdominal series with chest x-ray 3 views reported as significant improvement with near complete resolution of small bowel dilatation, no small bowel obstruction. NG tube in the stomach.. Chest x-ray dementia a cardiomegaly without CHF. Patient responding to nonsurgical intervention. New issue today low grade temperature 100.2 Fahrenheit, ordered pr Tylenol and blood cultures, patient already on empiric IV Levaquin, will continue 03/07/17: He is doing better. Still NGT to LIS. Imaging reviewed. 03/08/17: SBFT today 03/10/17: Exploratory laparotomy and lysis of extensive adhesions 03/17/17: I resumed care of patient, he is doing better, Surgeon is starting clear liquids today. TPN still going and monitoring electrolytes closely. Still trying to wean o2 History Interval history: Patient was seen and examined. Follow-up on current diagnosis/abdominal pain nausea vomiting which has improved. Overnight uneventful. Patient denies any chest pain, shortness breath, or severe headaches. Imaging, nursing note, chart , labs and old chart reviewed. Discussed with patient. Patient NG tube removed Hospitalist Physical - Physical exam Narrative exam: GEN: Ill-appearing man, BMI 35.4, no respiratory distress awake alert oriented 3 HEENT: NCAT, EOMI, PERRL, OP Clear, NG tube removed NECK: supple, no adenopathy, no thyromegaly, no JVD CVS/HEART: Irregular regular NORMAL S1S2, NO JVD, pulses present bilaterally CHEST/LUNGS: Bibasilar crackles Symmetrical chest expansion, good air entry bilaterally GI/Abdomen+ bowel sounds, surg dsg c/d/i, no guarding, no rebound /Bladder: no suprapubic tenderness, no CVA or paraspinal tenderness EXT/Skin: no c/c/e, no obvious rash MSK: FROM x 4 Neuro: CN 2-12 grossly intact except facial asymmetry, no new focal deficits Psych: calm - Constitutional Vitals: Temp Pulse Resp BP Pulse Ox 97.7 F 65 18 138/89 98 03/17/17 12:11 03/17/17 12:20 03/17/17 12:11 03/17/17 12:20 03/17/17 12:11 General appearance: Present: no acute distress Results - Labs CBC & Chem 7: 03/17/17 08:57 03/17/17 08:57 Labs: Laboratory Last Values WBC 6.5 K/mm3 (4.5-11.0) 03/17/17 08:57 RBC 3.57 M/mm3 (3.65-5.03) L 03/17/17 08:57 Hgb 12.8 gm/dl (11.8-15.2) 03/17/17 08:57 Hct 36.5 % (35.5-45.6) 03/17/17 08:57 MCV 102 fl (84-94) H 03/17/17 08:57 MCH 36 pg (28-32) H 03/17/17 08:57 MCHC 35 % (32-34) H 03/17/17 08:57 RDW 13.6 % (13.2-15.2) 03/17/17 08:57 Plt Count 96 K/mm3 (140-440) L 03/17/17 08:57 Lymph % (Auto) 15.1 % (13.4-35.0) 03/17/17 08:57 [place] % (Auto) 6.7 % (0.0-7.3) 03/17/17 08:57 Eos % (Auto) 3.4 % (0.0-4.3) 03/17/17 08:57 Baso % (Auto) 0.7 % (0.0-1.8) 03/17/17 08:57 Lymph # 1.0 K/mm3 (1.2-5.4) L 03/17/17 08:57 [place] # 0.4 K/mm3 (0.0-0.8) 03/17/17 08:57 Eos # 0.2 K/mm3 (0.0-0.4) 03/17/17 08:57 Baso # 0.0 K/mm3 (0.0-0.1) 03/17/17 08:57 Add Manual Diff Complete 03/05/17 05:12 Total Counted 100 03/05/17 05:12 Seg Neutrophils % 74.1 % (40.0-70.0) H 03/17/17 08:57 Seg Neuts % (Manual) 34.0 % (40.0-70.0) L 03/05/17 05:12 Band Neutrophils % 6.0 % 03/05/17 05:12 Lymphocytes % (Manual) 37.0 % (13.4-35.0) H 03/05/17 05:12 Reactive Lymphs % (Man) 0 % 03/05/17 05:12 Monocytes % (Manual) 20.0 % (0.0-7.3) H 03/05/17 05:12 Eosinophils % (Manual) 2.0 % (0.0-4.3) 03/05/17 05:12 Basophils % (Manual) 1.0 % (0.0-1.8) 03/05/17 05:12 Metamyelocytes % 0 % 03/05/17 05:12 Myelocytes % 0 % 03/05/17 05:12 Promyelocytes % 0 % 03/05/17 05:12 Blast Cells % 0 % 03/05/17 05:12 Nucleated RBC % Not Reportable 03/05/17 05:12 Seg Neutrophils # 4.8 K/mm3 (1.8-7.7) 03/17/17 08:57 Seg Neutrophils # Man 1.0 K/mm3 (1.8-7.7) L 03/05/17 05:12 Band Neutrophils # 0.2 K/mm3 03/05/17 05:12 Lymphocytes # (Manual) 1.0 K/mm3 (1.2-5.4) L 03/05/17 05:12 Abs React Lymphs (Man) 0.0 K/mm3 03/05/17 05:12 Monocytes # (Manual) 0.6 K/mm3 (0.0-0.8) 03/05/17 05:12 Eosinophils # (Manual) 0.1 K/mm3 (0.0-0.4) 03/05/17 05:12 Basophils # (Manual) 0.0 K/mm3 (0.0-0.1) 03/05/17 05:12 Metamyelocytes # 0.0 K/mm3 03/05/17 05:12 Myelocytes # 0.0 K/mm3 03/05/17 05:12 Promyelocytes # 0.0 K/mm3 03/05/17 05:12 Blast Cells # 0.0 K/mm3 03/05/17 05:12 WBC Morphology Not Reportable 03/05/17 05:12 Hypersegmented Neuts Not Reportable 03/05/17 05:12 Hyposegmented Neuts Not Reportable 03/05/17 05:12 Hypogranular Neuts Not Reportable 03/05/17 05:12 Smudge Cells Not Reportable 03/05/17 05:12 Toxic Granulation Not Reportable 03/05/17 05:12 Toxic Vacuolation Not Reportable 03/05/17 05:12 Dohle Bodies Not Reportable 03/05/17 05:12 Pelger-Huet Anomaly Not Reportable 03/05/17 05:12 Jack Rods Not Reportable 03/05/17 05:12 Platelet Estimate Consistent w auto 03/05/17 05:12 Clumped Platelets Not Reportable 03/05/17 05:12 Plt Clumps, EDTA Not Reportable 03/05/17 05:12 Large Platelets Not Reportable 03/05/17 05:12 Giant Platelets Not Reportable 03/05/17 05:12 Platelet Satelliting Not Reportable 03/05/17 05:12 Plt Morphology Comment Not Reportable 03/05/17 05:12 RBC Morphology Normal 03/05/17 05:12 Dimorphic RBCs Not Reportable 03/05/17 05:12 Polychromasia Not Reportable 03/05/17 05:12 Hypochromasia Not Reportable 03/05/17 05:12 Poikilocytosis Not Reportable 03/05/17 05:12 Anisocytosis Not Reportable 03/05/17 05:12 Microcytosis Not Reportable 03/05/17 05:12 Macrocytosis Not Reportable 03/05/17 05:12 Spherocytes Not Reportable 03/05/17 05:12 Pappenheimer Bodies Not Reportable 03/05/17 05:12 Sickle Cells Not Reportable 03/05/17 05:12 Target Cells Not Reportable 03/05/17 05:12 Tear Drop Cells Not Reportable 03/05/17 05:12 Ovalocytes Not Reportable 03/05/17 05:12 Helmet Cells Not Reportable 03/05/17 05:12 [place] Bodies Not Reportable 03/05/17 05:12 [place] Rings Not Reportable 03/05/17 05:12 [place] Cells Not Reportable 03/05/17 05:12 Bite Cells Not Reportable 03/05/17 05:12 Crenated Cell Not Reportable 03/05/17 05:12 Elliptocytes Not Reportable 03/05/17 05:12 Acanthocytes (Spur) Not Reportable 03/05/17 05:12 Rouleaux Not Reportable 03/05/17 05:12 Hemoglobin C Crystals Not Reportable 03/05/17 05:12 Schistocytes Not Reportable 03/05/17 05:12 Malaria parasites Not Reportable 03/05/17 05:12 Asif Bodies Not Reportable 03/05/17 05:12 Hem Pathologist Commnt No 03/05/17 05:12 PT 18.6 Sec. (12.2-14.9) H 03/09/17 14:42 INR 1.47 (0.87-1.13) H 03/09/17 14:42 APTT 32.2 Sec. (24.2-36.6) 03/09/17 14:42 Sodium 130 mmol/L (137-145) L D 03/16/17 05:00 Potassium 5.0 mmol/L (3.6-5.0) 03/16/17 05:00 Chloride 93.9 mmol/L (98-107) L 03/16/17 05:00 Carbon Dioxide 30 mmol/L (22-30) 03/17/17 08:57 Anion Gap 15 mmol/L 03/16/17 05:00 BUN 17 mg/dL (9-20) 03/17/17 08:57 Creatinine 0.6 mg/dL (0.8-1.5) L 03/17/17 08:57 Estimated GFR > 60 ml/min 03/17/17 08:57 BUN/Creatinine Ratio 28 % 03/17/17 08:57 Glucose 111 mg/dL (75-100) H 03/17/17 08:57 POC Glucose 133 (70-105) H 03/17/17 11:46 Lactic Acid 2.00 mmol/L (0.7-2.0) 03/04/17 10:38 Calcium 8.7 mg/dL (8.4-10.2) 03/17/17 08:57 Phosphorus 2.60 mg/dL (2.5-4.5) 03/17/17 08:57 Magnesium 1.70 mg/dL (1.7-2.3) 03/15/17 06:20 Total Bilirubin 0.60 mg/dL (0.1-1.2) 03/11/17 07:30 Direct Bilirubin < 0.2 mg/dL (0-0.2) 03/03/17 16:11 Indirect Bilirubin 0.8 mg/dL 03/03/17 16:11 AST 12 units/L (5-40) 03/11/17 07:30 ALT 6 units/L (7-56) L 03/11/17 07:30 Alkaline Phosphatase 41 units/L (35-129) 03/11/17 07:30 Total Protein 5.6 g/dL (6.3-8.2) L 03/11/17 07:30 Albumin 2.6 g/dL (3.9-5) L 03/11/17 07:30 Albumin/Globulin Ratio 0.9 % 03/11/17 07:30 Triglycerides 62 mg/dL (2-149) 03/11/17 07:30 Amylase 49 units/L (27-131) 03/05/17 05:12 Lipase 16 units/L (13-60) 03/03/17 16:11 Urine Color Karlene (Yellow) 03/04/17 12:08 Urine Turbidity Clear (Clear) 03/04/17 12:08 Urine pH 5.0 (5.0-7.0) 03/04/17 12:08 Ur Specific [place] 1.056 (1.003-1.030) H 03/04/17 12:08 Urine Protein 100 mg/dl mg/dL (Negative) 03/04/17 12:08 Urine Glucose (UA) Neg mg/dL (Negative) 03/04/17 12:08 Urine Ketones 20 mg/dL (Negative) 03/04/17 12:08 Urine Blood Mod (Negative) 03/04/17 12:08 Urine Nitrite Neg (Negative) 03/04/17 12:08 Urine Bilirubin Neg (Negative) 03/04/17 12:08 Urine Urobilinogen < 2.0 mg/dL (<2.0) 03/04/17 12:08 Ur Leukocyte Esterase Neg (Negative) 03/04/17 12:08 Urine WBC (Auto) 4.0 /HPF (0.0-6.0) 03/04/17 12:08 Urine RBC (Auto) 19.0 /HPF (0.0-6.0) 03/04/17 12:08 U Epithel Cells (Auto) 1.0 /HPF (0-13.0) 03/04/17 12:08 Urine Mucus 3+ /HPF 03/04/17 12:08 Blood Type O POSITIVE 03/04/17 14:21
[2017-03-17] MEDS ORDERED: INTRALIPID 20% 250 ML IV SCH (20:00)
[2017-03-17] MEDS ORDERED: TPN ADULT 2,016 ML IV SCH (20:00)
[2017-03-18] MEDS: PROVENTIL IH SCH ×4 (01:06→19:16)
[2017-03-18] MEDS: LOPRESSOR IV SCH ×2 (05:13→13:15)
[2017-03-18 06:52] LABS: Chloride TNR mmol/L (98-107); Potassium TNR mmol/L (3.6-5.0); Sodium TNR mmol/L (137-145)
[2017-03-18 06:53] LABS: Anion Gap TNR mmol/L; BUN/Creatinine Ratio TNR; Blood Urea Nitrogen TNR mg/dL (9-20); Calcium TNR mg/dL (8.4-10.2); Carbon Dioxide TNR mmol/L (22-30); Glucose TNR mg/dL (75-100)
[2017-03-18 06:54] LABS: Magnesium TNR mg/dL (1.7-2.3); Phosphorous TNR mg/dL (2.5-4.5)
[2017-03-18 09:00] LABS: BUN/Creatinine Ratio 34; Blood Urea Nitrogen 17 mg/dL (9-20); Calcium 8.4 mg/dL (8.4-10.2); Carbon Dioxide 25 mmol/L (22-30); Chloride 95.4 mmol/L (98-107); Glucose 91 mg/dL (75-100); Magnesium 1.8 mg/dL (1.7-2.3); Phosphorous 2.3 mg/dL (2.5-4.5)
[2017-03-18 09:18] LABS: Sodium 131 mmol/L (137-145)
[2017-03-18 09:19] LABS: Anion Gap 15 mmol/L; Potassium 4.7 mmol/L (3.6-5.0)
--- NOTE | 2017-03-18 09:54 | Progress Note ---
Assessment and Plan Permanent atrial fibrillation On coumadin, digoxin and diltiazem as outpatient which are currently on hold. EF 50-55% by GUDELIA 12/2015 No ischemia by MPI 2007 Abdominal pain Small bowel obstruction on CT abdomen s/p exploratory lap and lysis of extensive adhesions. 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 We will transition to oral lopressor for rate control of chronic Afib. On discharge, if okay by surgery, we would resume oral anticoagulation therapy, with Coumadin initially dosed at 2.5 mg daily. Subjective Date of service: 03/18/17 Principal diagnosis: small bowel obstruction Interval history: Patient has no complaints. Physical therapist at bedside. Stable Afib on telemetry. Objective Vital Signs Temp Pulse Pulse Resp Resp BP Pulse Ox 03/18/17 09:35 77 18 98 03/18/17 09:34 74 18 03/18/17 05:14 74 123/75 92 03/18/17 05:13 100 H 130/93 03/18/17 05:11 97.5 F L 29 H 130/93 03/18/17 00:21 98.2 F 18 109/73 03/17/17 21:22 97 03/17/17 19:27 99.4 F 18 126/77 03/17/17 18:21 62 138/83 03/17/17 18:03 57 L 18 138/83 97 03/17/17 15:07 99 H 20 03/17/17 15:01 98.1 F 84 18 142/95 96 03/17/17 14:59 90 20 03/17/17 12:20 65 138/89 03/17/17 12:11 97.7 F 106 H 18 138/89 98 - Physical Examination General: No Apparent Distress HEENT: Positive: PERRL Cardiac: Positive: irregularly irregular Neuro: Positive: Grossly Intact, Weakness Extremities: Absent: edema - Labs and Meds Comprehensive Metabolic Panel 03/18/17 03/18/17 Range/Units 05:27 08:39 Sodium TNR 131 L Potassium TNR 4.7 Chloride TNR 95.4 L Carbon Dioxide TNR 25 BUN TNR 17 Creatinine TNR 0.5 L Glucose TNR 91 Calcium TNR 8.4
[2017-03-18] MEDS: PEPCID IV SCH (11:00)
--- NOTE | 2017-03-18 12:17 | Progress Note ---
Assessment and Plan Pt feeling well without compl. madeleine cl liq diet Abd soft non tender surgically stable advance diet Selected Entries 03/18/17 03/18/17 05:14 09:35 Pulse Rate [AP 77 Bilateral Throughout] O2 Sat by Pulse 98 Oximetry Blood Pressure 123/75 Laboratory Tests 03/18/17 05:27 Sodium TNR Carbon Dioxide TNR Objective Vital Signs - 12hr 03/18/17 03/18/17 03/18/17 00:21 05:11 05:13 Temperature 98.2 F 97.5 F L Pulse Rate 100 H Pulse Rate [AP Bilateral Throughout] Respiratory 18 29 H Rate Respiratory Rate [AP Bilateral Throughout] Blood Pressure 109/73 130/93 130/93 O2 Sat by Pulse Oximetry 03/18/17 03/18/17 03/18/17 05:14 09:34 09:35 Temperature Pulse Rate 74 Pulse Rate [AP 74 77 Bilateral Throughout] Respiratory Rate Respiratory 18 18 Rate [AP Bilateral Throughout] Blood Pressure 123/75 O2 Sat by Pulse 92 98 Oximetry - Labs 03/17/17 08:57 03/18/17 08:39 Diabetes panel 03/18/17 03/18/17 Range/Units 05:27 08:39 Sodium TNR 131 L Potassium TNR 4.7 Chloride TNR 95.4 L Carbon Dioxide TNR 25 BUN TNR 17 Creatinine TNR 0.5 L Glucose TNR 91 Calcium TNR 8.4 Calcium panel 03/18/17 03/18/17 03/18/17 Range/Units 05:27 08:39 08:39 Calcium TNR 8.4 Phosphorus TNR 2.30 L Pituitary panel 03/18/17 03/18/17 Range/Units 05:27 08:39 Sodium TNR 131 L Potassium TNR 4.7 Chloride TNR 95.4 L Carbon Dioxide TNR 25 BUN TNR 17 Creatinine TNR 0.5 L Glucose TNR 91 Calcium TNR 8.4 Adrenal panel 03/18/17 03/18/17 Range/Units 05:27 08:39 Sodium TNR 131 L Potassium TNR 4.7 Chloride TNR 95.4 L Carbon Dioxide TNR 25 BUN TNR 17 Creatinine TNR 0.5 L Glucose TNR 91 Calcium TNR 8.4
[2017-03-18] MEDS: LOPRESSOR PO SCH (18:08)
--- NOTE | 2017-03-18 18:48 | Progress Note ---
Assessment and Plan Assessment and Plan Assessment and plan: Patient is 81-year-old man with history of A. fib on warfarin, hypertension, CHF , tobacco dependency, dyslipidemia and coronary artery disease who presented to the emergency Department at [facility] (first visit here-main doctors are at [facility] [place]) with nausea, vomiting and abdominal pains. 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 s/p expl lap, lysis of extensive adhesions. Patient tolerating clears today.D/c'd TPN today.Advance diet and follow up for one more day -Small bowel obstruction with peritonitis, poa---s/p expl lap, lysis of extensive adhesions. -Sepsis due to peritionitis, poa: treated with abx -resolved -Acute hypoxic respiratory failure due to above, poa: wean off oxygen-resolved -Malignant hypertension: prOn discharge, if okay by surgery, we would resume oral anticoagulation therapy, with Coumadin initially dosed at 2.5 mg daily. n IV labetalol-stable now -Atrial fibrillation/aflutter To start on coumadin 2.5 mg po qd at discharge and ID to monitor INR and report back to Cardiology/Primary care. 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: Vascular is following and recommends outpatient follow up Discharge planning issues--If ok with surgery -patient maybe discharged back to [facility] Subjective Date of service: 03/18/17 Principal diagnosis: small bowel obstruction Interval history: Tolerating clears s/p expl lap, lysis of extensive adhesions on 03/10/17 Objective - Constitutional Vitals: Vital Signs - 12hr 03/18/17 03/18/17 03/18/17 08:46 09:34 09:35 Temperature 98.4 F Pulse Rate 99 H Pulse Rate [AP 74 77 Bilateral Throughout] Respiratory 18 Rate Respiratory 18 18 Rate [AP Bilateral Throughout] Blood Pressure 142/90 O2 Sat by Pulse 97 98 Oximetry 03/18/17 03/18/17 03/18/17 12:00 13:15 14:55 Temperature 98.6 F Pulse Rate 87 86 Pulse Rate [AP 78 Bilateral Throughout] Respiratory 18 Rate Respiratory 18 Rate [AP Bilateral Throughout] Blood Pressure 140/86 140/86 O2 Sat by Pulse 99 Oximetry 03/18/17 03/18/17 15:08 18:08 Temperature Pulse Rate 108 H Pulse Rate [AP 77 Bilateral Throughout] Respiratory Rate Respiratory 18 Rate [AP Bilateral Throughout] Blood Pressure 136/80 O2 Sat by Pulse Oximetry General appearance: Present: no acute distress, well-nourished - EENT Eyes: PERRL, EOM intact ENT: hearing intact, clear oral mucosa Ears: bilateral: normal - Neck Neck: supple, normal ROM - Respiratory Respiratory effort: normal Respiratory: bilateral: CTA - Breasts Breasts: normal - Cardiovascular Heart rate: 78 Rhythm: regular Heart Sounds: Present: S1 & S2. Absent: gallop, rub Extremities: pulses intact, No edema, normal color, Full ROM - Gastrointestinal General gastrointestinal: Present: soft, non-tender, distended, normal bowel sounds - Genitourinary Male genitourinary: normal - Integumentary Integumentary: clear, warm, dry - Musculoskeletal Musculoskeletal: 1, strength equal bilaterally - Neurologic Neurologic: moves all extremities - Psychiatric Psychiatric: memory intact, appropriate mood/affect, intact judgment & insight - Labs CBC & Chem 7: 03/17/17 08:57 03/18/17 08:39 Labs: Abnormal lab results 03/18/17 03/18/17 03/18/17 Range/Units 00:20 05:08 08:39 Sodium 131 L (137-145) mmol/L Chloride 95.4 L (98-107) mmol/L Creatinine 0.5 L (0.8-1.5) mg/dL POC Glucose 109 H 117 H (70-105) Phosphorus (2.5-4.5) mg/dL 03/18/17 03/18/17 03/18/17 Range/Units 08:39 13:27 18:11 Sodium (137-145) mmol/L Chloride (98-107) mmol/L Creatinine (0.8-1.5) mg/dL POC Glucose 137 H 106 H (70-105) Phosphorus 2.30 L (2.5-4.5) mg/dL
[2017-03-18] MEDS ORDERED: TPN ADULT 2,016 ML IV SCH (20:00)
[2017-03-19] MEDS: LOPRESSOR PO SCH ×3 (00:21→11:15)
[2017-03-19] MEDS: PEPCID IV SCH ×2 (00:31→10:15)
[2017-03-19 07:41] VITALS: BP 151/101
[2017-03-19] MEDS ORDERED: COUMADIN PO ONE (08:32)
--- NOTE | 2017-03-19 08:32 | Discharge Summary ---
Providers - Providers Date of Admission: 03/03/17 20:07 Attending physician: JULIAN GREENE MD 03/03/17 21:33 Consult to Physician [CONS] Routine Consulting Provider: MADELINE GONG Reason For Exam: Small Bowel Obstruction Place consult to:: Dr Gong Notified:: MD If yes, spoke with:: Dr Gong Time called:: 22:53 03/04/17 11:19 Consult to Physician [CONS] Routine Consulting Provider: ATIF VINCENT Reason For Exam: AAA, ?iliac dissection Place consult to:: Notified:: Phone number called:: [phone] Was contact made?: Yes If yes, spoke with:: Dr. Vincent Time called:: 11:21 Comment:: CONNER 03/09/17 14:03 Consult to Dietitian/Nutrition [CONS] Routine Physician Instructions: Reason For Exam: TPN Reason for Consult: Write/Manage TPN/PPN 03/09/17 14:04 PICC Line Insertion [Consult to PICC Line RN] [CONS] Routine Reason For Exam: PICC for TPN Type Line:: PICC 03/11/17 10:14 Physical Therapy Evaluation and Treat [CONS] Routine Comment: Reason For Exam: OOB and ambulate as madeleine 03/14/17 19:44 Consult to Wound/ET Nurse [CONS] Routine Reason For Exam: new PU on inner left buttock Primary care physician: POOL NURSE Hospitalization Condition: Stable Hospital course: Patient is 81-year-old man with history of A. fib on warfarin, hypertension, CHF , tobacco dependency, dyslipidemia and coronary artery disease who presented to the emergency Department at [facility] (first visit here-main doctors are at [facility]) with nausea, vomiting and abdominal pains. 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 s/p expl lap, lysis of extensive adhesions. Patient tolerating clears today.D/c'd TPN today.Advance diet and follow up for one more day -Small bowel obstruction with peritonitis, poa---s/p expl lap, lysis of extensive adhesions. -Sepsis due to peritionitis, poa: treated with abx -resolved -Acute hypoxic respiratory failure due to above, poa: wean off oxygen-resolved -Malignant hypertension: prOn discharge, if okay by surgery, we would resume oral anticoagulation therapy, with Coumadin initially dosed at 2.5 mg daily. n IV labetalol-stable now -Atrial fibrillation/aflutter To start on coumadin 2.5 mg po qd at discharge and NH to monitor INR and report back to Cardiology/Primary care. 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: Vascular is following and recommends outpatient follow up Discharge planning issues--If ok with surgery -patient maybe discharged back to [facility] Time spent for discharge: 35 mins Exam - Constitutional Vitals: Temp Pulse Resp BP Pulse Ox 97.7 F 83 20 151/101 99 03/19/17 07:11 03/19/17 07:11 03/19/17 07:11 03/19/17 07:11 03/19/17 07:11 Plan Activity: advance as tolerated, fall precautions Diet: per dietitian instruction Special Instructions: record daily weights Additional Instructions: check INR IN 1 WEEK- Send report to PCP OR SUPERINTENDENT MEASUREMENT. Follow up with: YONI CHIN MD [Primary Care Provider] - 3-5 Days BHAVANI AREVALO MD [Staff Physician] - 7 Days MADELINE GONG MD [Staff Physician] - 7 Days ATIF VINCENT MD [Staff Physician] - 7 Days Prescriptions: Metoprolol [Lopressor TAB] 50 mg PO BID 30 Days Warfarin Sodium [Coumadin] 2.5 mg PO DAILY #30 tablet
[2017-03-19] MEDS: PROVENTIL IH SCH (09:25)
[2017-03-19] MEDS ORDERED: LANOXIN PO SCH (10:00)
[2017-03-19 10:37] LABS: Basophils % (Auto) 1.2 % (0.0-1.8); Eosinophils % (Auto) 3.7 % (0.0-4.3); Hematocrit 36.7 % (35.5-45.6); Hemoglobin 12.6 gm/dl (11.8-15.2); Mean Corpuscular HGB Conc 34 % (32-34); Mean Corpuscular Hemoglobin 35 pg (28-32); Mean Corpuscular Volume 103 fl (84-94); Red Blood Count 3.58 M/mm3 (3.65-5.03); Red Cell Distribution Width 13.8 % (13.2-15.2)
[2017-03-19 11:16] LABS: Alanine Aminotransferase 15 units/L (7-56); Albumin 2.8 g/dL (3.9-5); Albumin/Globulin Ratio 0.9 %; Alkaline Phosphatase 62 units/L (35-129); Anion Gap 16 mmol/L; BUN/Creatinine Ratio 21; Blood Urea Nitrogen 15 mg/dL (9-20); Calcium 8.8 mg/dL (8.4-10.2); Carbon Dioxide 26 mmol/L (22-30); Chloride 98.4 mmol/L (98-107); Glucose 93 mg/dL (75-100); Potassium 4.4 mmol/L (3.6-5.0); Sodium 136 mmol/L (137-145)
[2017-03-19 11:30] LABS: Platelet Count 120 K/mm3 (140-440)
--- NOTE | 2017-03-19 11:53 | Progress Note ---
Assessment and Plan Permanent atrial fibrillation rate controlled on metoprolol and digoxin warfarin restarted today EF 50-55% by GUDELIA 12/2015 No ischemia by MPI 2007 Abdominal pain Small bowel obstruction on CT abdomen s/p exploratory lap and lysis of extensive adhesions. Right common iliac artery aneurysm (measuring 4.1 cm) with possible dissection Outpatient follow-up per vascular Recommendations: Continue current management No further cardiac work-up needed Subjective Date of service: 03/19/17 Principal diagnosis: small bowel obstruction Interval history: Patient is doing well. He denies chest pain or shortness of breath Objective Vital Signs Temp Pulse Pulse Resp Resp BP BP 03/19/17 10:16 84 03/19/17 09:25 03/19/17 07:11 97.7 F 83 20 151/101 03/19/17 06:27 100 H 139/92 03/19/17 05:42 85 03/19/17 05:02 98.1 F 18 134/92 03/19/17 00:21 106 H 136/85 03/19/17 00:15 99 H 03/18/17 23:00 98.5 F 89 16 136/85 03/18/17 19:26 88 18 03/18/17 19:16 100 H 18 03/18/17 18:08 108 H 136/80 03/18/17 16:24 98.0 F 102 H 18 136/80 03/18/17 15:08 77 18 03/18/17 14:55 78 18 03/18/17 13:15 86 140/86 03/18/17 12:00 98.6 F 87 18 140/86 Pulse Ox 03/19/17 10:16 03/19/17 09:25 98 03/19/17 07:11 99 03/19/17 06:27 03/19/17 05:42 03/19/17 05:02 03/19/17 00:21 03/19/17 00:15 94 03/18/17 23:00 03/18/17 19:26 03/18/17 19:16 97 03/18/17 18:08 03/18/17 16:24 94 03/18/17 15:08 03/18/17 14:55 03/18/17 13:15 03/18/17 12:00 99 - Physical Examination General: No Apparent Distress HEENT: Positive: PERRL Neck: Positive: neck supple. Negative: JVD/HJR Cardiac: Positive: irregularly irregular Lungs: Positive: Normal Exam Neuro: Positive: Grossly Intact, Weakness Abdomen: Positive: Soft Extremities: Absent: edema - Labs and Meds Cardiac Enzymes 03/19/17 Range/Units Unknown AST 29 (5-40) units/L CBC 03/19/17 Range/Units Unknown WBC 7.0 (4.5-11.0) K/mm3 RBC 3.58 L (3.65-5.03) M/mm3 Hgb 12.6 (11.8-15.2) gm/dl Hct 36.7 (35.5-45.6) % Plt Count 120 L (140-440) K/mm3 Lymph # 1.1 L (1.2-5.4) K/mm3 [place] # 0.4 (0.0-0.8) K/mm3 Eos # 0.3 (0.0-0.4) K/mm3 Baso # 0.1 (0.0-0.1) K/mm3 Comprehensive Metabolic Panel 03/19/17 Range/Units Unknown Sodium 136 L (137-145) mmol/L Potassium 4.4 (3.6-5.0) mmol/L Chloride 98.4 (98-107) mmol/L Carbon Dioxide 26 (22-30) mmol/L BUN 15 (9-20) mg/dL Creatinine 0.7 L (0.8-1.5) mg/dL Glucose 93 (75-100) mg/dL Calcium 8.8 (8.4-10.2) mg/dL AST 29 (5-40) units/L ALT 15 (7-56) units/L Alkaline Phosphatase 62 (35-129) units/L Total Protein 6.0 L (6.3-8.2) g/dL Albumin 2.8 L (3.9-5) g/dL
== END 2017-03-19 11:30 | DRG 853 ==
LOC: ED 15:03 → CC2 20:07 → 3B-SURG 03-10 16:00
PROVIDERS: ADMIT Internal Medicine; ATTEND Internal Medicine
PROC: 30233L1 Transfusion of Nonautologous Fresh Plasma into Peripheral Vein, Percutaneous Approach (ICD-10-PCS; 2017-03-04)
PROC: 30233K1 Transfusion of Nonautologous Frozen Plasma into Peripheral Vein, Percutaneous Approach (ICD-10-PCS; 2017-03-04)
PROC: 0DNF0ZZ Release Right Large Intestine, Open Approach (ICD-10-PCS; principal; 2017-03-10)
PROC: 0DNE0ZZ Release Large Intestine, Open Approach (ICD-10-PCS; 2017-03-10)
PROC: 0WJG0ZZ Inspection of Peritoneal Cavity, Open Approach (ICD-10-PCS; 2017-03-10)
DX: A41.9 Sepsis, unspecified organism (principal); K65.9 Peritonitis, unspecified; J96.01 Acute respiratory failure with hypoxia; I77.72 Dissection of iliac artery; E43 Unspecified severe protein-calorie malnutrition; K56.609 Unspecified intestinal obstruction, unspecified as to partial versus complete obstruction; I71.4 Abdominal aortic aneurysm, without rupture; I48.2 Chronic atrial fibrillation; I11.0 Hypertensive heart disease with heart failure; I50.9 Heart failure, unspecified; E66.9 Obesity, unspecified; Z68.38 Body mass index [BMI] 38.0-38.9, adult; Z82.49 Family history of ischemic heart disease and other diseases of the circulatory system; Z83.3 Family history of diabetes mellitus; E78.5 Hyperlipidemia, unspecified; E87.6 Hypokalemia
CPT/HCPCS: 36415; 71010; 71020; 74000; 74020; 74022; 74177; 74250; 80048; 80053; 80074; 81001; 82140; 82150; 82962; 83690; 83735; 84100; 84478; 85007; 85025; 85027; 85610; 85730; 86900; 86901; 87040; 93005; 93010; 94640; 94668; 94760; 96374; A9270-GY; G8978-GP; G8979-GP; J1170; J1644; J1956; J2270; J2370; J2405; J2704; J2710; J3010; J3430; J3480; J7120; P9017; Q9967

== ENCOUNTER 2017-05-25 06:08 | Day surgery (SDC) | payer MEDICARE ==
[~2017-05-25 06:08] MED LIST: ANCEF/STERILE WATER 2 GM/20 ML 2 GM/20 ML SYRINGE IV NR; NACL 0.9% 1000 ML 1,000 ML IV SCH
[2017-05-25 07:03] VITALS: BP 131/80
[2017-05-25 07:21] LABS: Basophils % (Auto) 0.9 % (0.0-1.8); Eosinophils # (Auto) 0.2 K/mm3 (0.0-0.4); Eosinophils % (Auto) 4.3 % (0.0-4.3); Hematocrit 37.8 % (35.5-45.6); Hemoglobin 12.9 gm/dl (11.8-15.2); Lymphocytes # (Auto) 1.6 K/mm3 (1.2-5.4); Lymphocytes % (Auto) 39.5 % (13.4-35.0); Mean Corpuscular HGB Conc 34 % (32-34); Mean Corpuscular Hemoglobin 34 pg (28-32); Mean Corpuscular Volume 98 fl (84-94); Monocytes # (Auto) 0.4 K/mm3 (0.0-0.8); Platelet Count 193 K/mm3 (140-440); Red Blood Count 3.84 M/mm3 (3.65-5.03); Red Cell Distribution Width 14.1 % (13.2-15.2)
[2017-05-25 07:25] LABS: BUN/Creatinine Ratio 16; Blood Urea Nitrogen 14 mg/dL (9-20); Calcium 9.3 mg/dL (8.4-10.2); Hemolysis Index 6
[2017-05-25 07:26] LABS: INR 1.46 (0.87-1.13)
[2017-05-25 07:27] LABS: Partial Thromboplastin Time 31.5 Sec. (24.2-36.6)
== END 2017-05-25 08:50 | disposition home or self-care (01) ==
LOC: CATHLABREC 06:08
PROVIDERS: ATTEND Radiology Diagnostic Radiology
DX: I72.3 Aneurysm of iliac artery (principal); I11.0 Hypertensive heart disease with heart failure; I50.9 Heart failure, unspecified; K21.9 Gastro-esophageal reflux disease without esophagitis; E78.5 Hyperlipidemia, unspecified; Z79.899 Other long term (current) drug therapy; Z79.01 Long term (current) use of anticoagulants; Z53.8 Procedure and treatment not carried out for other reasons
CPT/HCPCS: 36415; 80048; 85025; 85610; 85730; J7030

== ENCOUNTER 2019-07-27 10:13 | Day surgery (SDC) | payer MEDICARE ==
[~2019-07-27 10:13] MED LIST changes: -ANCEF/STERILE WATER 2 GM/20 ML 2 GM/20 ML SYRINGE IV NR; -NACL 0.9% 1000 ML 1,000 ML IV SCH; +SODIUM CHLORIDE 0.9% 1000 ML 1,000 ML IV SCH
--- NOTE | 2019-07-27 11:23 | Anesthesia Consultation ---
Anesthesia Consult and Med Hx - Airway Anesthetic Teeth Evaluation: Edentulous ROM Head & Neck: Adequate Mental/Hyoid Distance: Adequate Mallampati Class: Class II Intubation Access Assessment: Good - Pulmonary Exam CTA: Yes - Cardiac Exam Anesthetic Concerns: h/o A Fib - Pre-Operative Health Status ASA Pre-Surgery Classification: ASA3 Proposed Anesthetic Plan: MAC - Pulmonary Hx Smoking: Yes (30 year/pack, quit 2007 ) Hx Asthma: Yes Hx Respiratory Symptoms: Yes SOB: Yes COPD: Yes - Cardiovascular System Hx Hypertension: Yes Hx Coronary Artery Disease: Yes (hx CHF EF 60% dilated cardiomyopathy was 35-40% in ) Hx Cardia Arrhythmia: Yes (atrial fibrilation, on coumadin at home) Hx Peripheral Vascular Disease: Yes - Central Nervous System 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
--- NOTE | 2019-07-27 11:24 | Anesthesia Day of Surgery ---
Anesthesia Day of Surgery - Day of Surgery Patient Examined: Yes Patient H&P Reviewed: Yes Patient is NPO: Yes
[2019-07-27] MEDS ORDERED: propofoL 200 MG/20 ML VIAL IV ONE (11:26)
--- NOTE | 2019-07-27 11:52 | Operative Report ---
Operative Report Operative Report: Colonoscopy with hot biopsy polypectomy. DATE: 07/27/2019 ATTENDING PHYSICIAN: Yfn Dominguez M.D. [employer] LAYOUT: Yfn Dominguez M.D. INDICATIONS: Patient is a 84y.o. male who presents for colorectal cancer screening . Patient has a personal history of colon polyps. Recently patient has had progressive constipation and diffuse abdominal pain. A colonoscopy is done to evaluate patient so that treatment may be directed based on the findings. CONSENT: Informed consent was obtained after the patient was advised regarding the nature of this procedure, its indications, potential benefits as well as possible complications including but not limited to bleeding, perforation, adverse reaction to medications, infection as well as cardiopulmonary complications. An informed written and verbal consent was then obtained after due opportunity was provided for questions and answers. MONITORING: Patient monitored continuously with pulse oximetry, electrocardiographic recordings as well as automatic blood pressure recordings. Patient remained stable throughout the procedure with no untoward events. PREOPERATIVE ASSESSMENT: Patient was assessed immediately prior to this procedure for capacity to tolerate moderate sedation/monitored anesthesia care. [place] anesthesiology association classification is 2. Mallampati class is 2. Hyomental distance is 3. INSTRUMENT: Olympus video colonoscope [id number]. MEDICATIONS: Propofol given intravenously in divided doses. For details, please refer to anesthesia records. DESCRIPTION OF PROCEDURE: Patient was placed in the left lateral decubitus position, after achieving sedation, a digital rectal examination was performed following which the colonoscope was introduced into the anal verge and advanced under direct visualization to the ileocolonic anastomosis in the proximal ascending colon. Color texture mucosa and anatomy of the colon were carefully examined with the colonoscope. The colonoscope was then gently withdrawn with careful inspection of all mucosa surfaces. The patient tolerated the procedure well with no complications. After completion of the examination, patient was transferred to the recovery room. The prep written regimen was GoLYTELY and the preparation was fair. The following findings were noted. FINDINGS: The [place] prep scale score was 6. The preparation was adequate. The ileocolonic anastomosis was normal. Patient had a diminutive polyp in the ascending colon which was removed by hot biopsy polypectomy. This measured approximately 5 mm. The rest of the colon was normal. On the retroflexed view at the anal verge patient had internal hemorrhoids. IMPRESSION: Normal ileocolonic anastomosis. Diminutive ascending colon polyp status post hot biopsy polypectomy. Internal Hemorrhoids otherwise normal colonoscopy. . PLAN: Follow-up pathology report. High fiber diet.
--- NOTE | 2019-07-27 11:53 | Discharge Summary ---
Short Stay Discharge Plan Activity: advance as tolerated Weight Bearing Status: Weight Bear as Tolerated Diet: regular Follow up with: ETHEL ROSALES MD [Primary Care Provider] - 7 Days
--- NOTE | 2019-07-27 12:19 | Post Anesthesia Evaluation ---
- Post Anesthesia Evaluation Patient Participated: Yes Airway Patent: Yes Stable Respiratory Function: Yes Nausea/Vomiting: No Temp > 96.8F: Yes Pain Manageable: Yes Adequeate Hydration: Yes Anesthesia Complications: No
[2019-07-27 12:29] VITALS: BP 121/63
== END 2019-07-27 10:14 | disposition home or self-care (01) ==
LOC: GIO 10:13
PROVIDERS: ATTEND Internal Medicine Gastroenterology
DX: K59.00 Constipation, unspecified (principal); K63.5 Polyp of colon; R10.9 Unspecified abdominal pain; K64.8 Other hemorrhoids; I48.91 Unspecified atrial fibrillation; I11.0 Hypertensive heart disease with heart failure; I50.9 Heart failure, unspecified; I42.9 Cardiomyopathy, unspecified; I25.10 Atherosclerotic heart disease of native coronary artery without angina pectoris; I73.9 Peripheral vascular disease, unspecified; E78.00 Pure hypercholesterolemia, unspecified; J44.9 Chronic obstructive pulmonary disease, unspecified; K21.9 Gastro-esophageal reflux disease without esophagitis; M19.90 Unspecified osteoarthritis, unspecified site; K56.609 Unspecified intestinal obstruction, unspecified as to partial versus complete obstruction; Z79.899 Other long term (current) drug therapy; Z87.891 Personal history of nicotine dependence; Z85.46 Personal history of malignant neoplasm of prostate; Z72.89 Other problems related to lifestyle; Z85.89 Personal history of malignant neoplasm of other organs and systems; Z98.890 Other specified postprocedural states; Z86.73 Personal history of transient ischemic attack (TIA), and cerebral infarction without residual deficits
CPT/HCPCS: 45384; 88305; J2704; J7030